=== PATIENT | male | born 1945 | race Caucasian/White ===

== ENCOUNTER → 2017-11-28 09:55 | Outpatient (CLI) | payer MEDICARE, OTHER, SELFPAY ==
--- NOTE | 2017-11-28 09:58 | FL_ITS ---
FL upper GI series w/o air HISTORY: ITS.REASON: DYSPHAGIA ORDERING PHYSICIAN: Eric Pike MD PATIENT AGE: 72 years Comparison: None FINDINGS: Tertiary contractions are present involving the esophagus poor emptying of the esophagus. No obvious mass or erosive change evident. The stomach and duodenum have an unremarkable appearance. No mass or ulceration FLUOROSCOPY TIME : 3 minutes and 12 seconds. IMPRESSION: Esophageal dysmotility otherwise negative upper GI
== END ==
PROVIDERS: Family Provider Family Medicine; PCP Family Medicine; Visit Provider Family Medicine
DX: R13.10 Dysphagia, unspecified (principal)
CPT/HCPCS: 74241

== ENCOUNTER → 2018-07-08 11:59 | Outpatient (CLI) | payer MEDICARE, OTHER, SELFPAY ==
--- NOTE | 2018-07-08 12:15 | XR_ITS ---
EXAM: XR cervical spine 5V HISTORY: ITS.REASON: NECK DISORDER ORDERING PHYSICIAN: Eric Pike MD PATIENT AGE: 73 years COMPARISON: None FINDINGS: Normal alignment. There is mild osteoarthritic change involving the C1 and C2 lateral mass the left. There is degenerative disc disease at C6-C7 with mild foraminal narrowing on the right at C6-C7 and on the left at C3-C4. Minimal foraminal narrowing noted at C6-C7 on the left. No fracture or dislocation. No lytic or blastic change. IMPRESSION: Degenerative disc disease with mild bilateral foraminal narrowing at C6-C7
== END ==
PROVIDERS: PCP Family Medicine; Visit Provider Family Medicine
DX: M53.82 Other specified dorsopathies, cervical region (principal)
CPT/HCPCS: 72050

== ENCOUNTER 2020-10-07 18:32 | Inpatient (IN) | payer MEDICARE, SELFPAY ==
[2020-10-07] VITALS (14 sets, daily range): BP systolic 96–178; BP diastolic 50–77; PULSE 67–113; RESP 18–32; TEMP 36.8; O2SAT 90–95; BMI 36.6
--- NOTE | 2020-10-07 18:33 | ECG_ITS ---
APPROVED REPORT Exam: Resting ECG HR:110 bpm ECG Measurements Heart Rate 110 AXES VA 176 P 25 QRSd 154 QRS -87 QT 356 T 55 QTc 481 Conclusion Sinus tachycardia Right bundle branch block Left anterior fascicular block Bifascicular block Possible Lateral infarct, age undetermined Abnormal ECG Electronically signed by : Collins Muñoz, 10/09/2020 20:30:06
[2020-10-07 18:47] LABS: POC Glucose,Bedside 144 (70-110)
--- NOTE | 2020-10-07 18:48 | PC.NURSE ---
pt belongings including gonzalez counted by me, $285, Feliciano Quiles and Jami Gutierrez handed the belongings to pt .
--- NOTE | 2020-10-07 18:50 | CT_ITS ---
PROCEDURE INFORMATION: Exam: CT Head Without Contrast Exam date and time: 10/07/2020 6:50 PM Age: 75 years old Clinical indication: Altered mental status/memory loss; Additional info: AMS TECHNIQUE: Imaging protocol: Computed tomography of the head without contrast. Radiation optimization: All CT scans at this facility use at least one of these dose optimization techniques: automated exposure control; mA and/or kV adjustment per patient size (includes targeted exams where dose is matched to clinical indication); or iterative reconstruction. COMPARISON: [facility] CT HEAD W/O CONTRAST 08/13/2014 7:10 PM FINDINGS: Limitations: Examination limited by beam hardening artifact from the calvarium and skull base, which particularly affects limitation of the posterior fossa structures. Brain: No acute hemorrhage. Moderate enlargement of the ventricular system secondary to age related parenchymal volume loss. Moderate enlargement of the cortical sulci, compatible with age-related parenchymal volume loss. Minimal basal ganglia mineralization. Cerebral ventricles: Moderate to severe enlargement of the ventricular system secondary to age related parenchymal volume loss. Vasculature: Atherosclerotic calcification of the bilateral intracranial internal carotid arteries. Bones/joints: Unremarkable. No acute fracture. Paranasal sinuses: Visualized sinuses are unremarkable. No fluid levels. Mastoid air cells: Visualized mastoid air cells are well aerated. Soft tissues: Unremarkable. IMPRESSION: 1. No acute intracranial abnormality. 2. Chronic findings.
--- NOTE | 2020-10-07 18:54 | HMH.EDGENADL ---
ED Disposition Condition on Discharge: Fair - Critical Care Critical Care Time: No <Farhan Johnson - Last Filed: 10/07/20 20:50> Condition on Discharge: Fair - Critical Care Critical Care Time: No <OscarkathleenVivek - Last Filed: 10/07/20 22:22> Clinical Impression: Weakness Vomiting Qualifiers: Vomiting type: unspecified Vomiting Intractability: non-intractable Nausea presence: with nausea Qualified Code(s): R11.2 - Nausea with vomiting, unspecified Disposition: Admitted As Inpatient Referrals: Eric Bell [Referring] - Attestation: On 10/07/20, the high probability of a clinically significant, sudden or life threatening deterioration of the following system(s) required my full and direct attention, intervention and personal management. The time I documented below is in addition to time spent performing reported procedures but includes the following listed in this critical care notation. Medical Decision Making - Jefry Inquiry Pt receiving controlled substance: No - Lab Data Result diagrams: 10/07/20 18:49 10/07/20 18:49 - Radiology Data #1 Image(s): Chest Image Reviewed: Yes I reviewed the patient's radiology image - Physician Consults Physician Consulted: Celio Time: 18:45 Reason -: Cardiology Eval/Care Comment/Response: EMS raised concern about ST elevation on EKG obtained in ambulance. That was transmitted to Dr. Pickens prior to his arrival. He did not STEMI was likely, but requested emergency department EKG transmission when he arrived. ED EKG transmitted and he does not feel this is a STEMI. Likely metabolic and/or cardiomyopathy. Additional Consult: Susi Time: 20:12 Reason -: Pt condition Comment/Response: Discussed case up to this point. Urine analysis, CT head, chest x-ray still pending. He is to be called back when work-up is complete. Anticipating admission. <NickFarhan ames - Last Filed: 10/07/20 20:50> - Lab Data Result diagrams: 10/07/20 18:49 10/07/20 18:49 <AbelVivek - Last Filed: 10/07/20 22:22> Vital Signs: 10/07/20 18:33 10/07/20 20:52 10/07/20 21:23 Temperature 98.2 F Temperature Source Oral Pulse Rate 104 H 104 H Pulse Rate [Right] 113 H Respiratory Rate 20 18 Blood Pressure 130/51 L 110/72 Blood Pressure [Right Arm] 178/70 H Blood Pressure Mean [Right Arm] 106 Blood Pressure Source Manual Cuff/ Auscultation Manual Cuff/ Auscultation Blood Pressure Source [Right Arm] Automatic Cuff Blood Pressure Position Supine Sitting Blood Pressure Position [Right Arm] Sitting 02 Sat by Pulse Oximetry 90 L 93 L 93 L Oxygen Delivery Method Room Air Nasal Cannula Nasal Cannula Oxygen Flow Rate (LPM) 2 2 - Lab Data Lab Results 10/07/20 18:40: POC Glucose 144 H 10/07/20 18:49: WBC 15.5 H, RBC 4.27 L, Hgb 11.6 L, Hct 36.0 L, MCV 84.5, MCH 27.2, MCHC 32.3, RDW 14.9, Plt Count 289, MPV 7.3 L, Neut % (Auto) 93.0 H, Lymph % (Auto) 3.8 L, [place] % (Auto) 2.0, Eos % (Auto) 1.0, Baso % (Auto) 0.2, Neut # (Auto) 14.5 H, Lymph # (Auto) 0.6 L, [place] # (Auto) 0.3, Eos # (Auto) 0.2, Baso # (Auto) 0.0, Total Counted 100, Neutrophils % (Manual) 97 H, Lymphocytes % (Manual) 2 L, Monocytes % (Manual) 1 L, Platelet Estimate Normal, RBC Morphology Normal 10/07/20 18:49: Sodium 140, Potassium 4.8, Chloride 102, Carbon Dioxide 27, Anion Gap 15.8 H, BUN 45 H, Creatinine 2.40 H, Estimated Creat Clear 47, Estimated GFR 27 L, Est GFR ( Amer) 32 L, Glucose 144 H, Calcium 9.6, Total Bilirubin 0.8, AST 39, ALT 31, Alkaline Phosphatase 149 H, Troponin I < 0.01, Total Protein 7.6, Albumin 4.3, Globulin 3.3 H, Albumin/Globulin Ratio 1.3 10/07/20 18:49: Plasma/Serum Alcohol < 10 10/07/20 18:52: Chlamy pneumoniae PCR Not detected, Adenovirus (PCR) Not detected, B. pertussis DNA (PCR) Not detected, Coronavirus OC43 (PCR) Not detected, Coronavirus HKU1 (PCR) Not detected, Coronavirus 229E (PCR) Not detected, SARS-CoV-2 (PCR) Not detected, Coronavirus NL63 (PCR) Not
[2020-10-07 19:02] LABS: Basophils % 0.2 % (0.1-2.0); Eosinophils # 0.2 K/mm3 (0.0-0.4); Hemoglobin 11.6 g/dL (14.1-18.0); Lymphocytes # 0.6 K/mm3 (0.7-4.5); Lymphocytes % 3.8 % (10-50); Mean Corpuscular HGB Conc 32.3 g/dL (31.8-35.4); Mean Corpuscular Hemoglobin 27.2 pg (27.0-31.2); Mean Corpuscular Volume 84.5 fl (80-94); Mean Platelet Volume 7.3 fl (7.4-10.4); Monocytes # 0.3 K/mm3 (0.1-1.0); Neutrophils # 14.5 K/mm3 (1.8-7.8); Platelet Count 289 K/mm3 (142-424); Red Blood Count 4.27 M/mm3 (4.60-6.20); Red Cell Distribution Width 14.9 % (11.5-17.5); White Blood Count 15.5 K/mm3 (4.8-10.8)
[2020-10-07 19:05] LABS: MANUAL DIFFERENTIAL MANUAL DIFFERENTIAL (MANUAL DIFF)
[2020-10-07 19:06] LABS: Chloride 102 mmol/L (98-107); Potassium 4.8 mmoL/L (3.5-5.1); Sodium 140 mmol/L (136-145)
[2020-10-07 19:09] LABS: Alanine Aminotransferase 31 U/L (12-78); Albumin Level 4.3 g/dl (3.5-5.0); Albumin/Globulin Ratio 1.3 (1.1-1.8); Alkaline Phosphatase 149 U/L (38-126); Anion Gap 15.8 mEq/L (5-15); Aspartate Amino Transferase 39 U/L (17-59); Bilirubin,Total 0.8 mg/dl (0.2-1.3); Blood Urea Nitrogen 45 mg/dl (9-20); Carbon Dioxide 27 mmol/L (22.0-30.0); Creatinine Clearance Estimated 47 mL/min (50-200); Estimated Glomerular Filt Rate 27 ml/min (>60); GFR (African American) 32 ML/MIN (>60); Globulin 3.3 g/dL (1.3-3.2); Total Protein,Serum 7.6 g/dl (6.3-8.2)
[2020-10-07 19:10] LABS: Calcium 9.6 mg/dl (8.4-10.2); Glucose 144 mg/dl (74-100)
[2020-10-07 19:21] LABS: Troponin I < 0.01 ng/ml (0.00-0.034)
[2020-10-07 19:43] LABS: Lymphocytes % 2 % (10-50); Monocytes % 1 % (2-9); Neutrophils % 97 % (42-76); Platelet Estimate Normal; RBC Morphology Normal; Total Cells Counted 100
[2020-10-07 19:45] LABS: Adenovirus,PCR Not Detected (NotDetected); Bordetella Pertussis Not Detected (NotDetected); Chlamydophila Pneumoniae, PCR Not Detected (NotDetected); Coronavirus 19, PCR Not Detected (NotDetected); Coronavirus 229E Not Detected (NotDetected); Coronavirus NL63 Not Detected (NotDetected); Coronavirus OC43 Not Detected (NotDetected); Coronovirus HKU1,PCR Not Detected (NotDetected); Human Metapneumovirus Not Detected (NotDetected); Influenza A, PCR Not Detected (NotDetected); Influenza AH1, 2009 Not Detected (NotDetected); Influenza AH1, PCR Not Detected (NotDetected); Influenza AH3,PCR Not Detected (NotDetected); Influenza B, PCR Not Detected (NotDetected); Mycoplasma Pneumoniae, PCR Not Detected (NotDetected); Parainfluenza 1, PCR Not Detected (NotDetected); Parainfluenza 2, PCR Not Detected (NotDetected); Parainfluenza 3, PCR Not Detected (NotDetected); Parainfluenza 4, PCR Not Detected (NotDetected); Respiratory Syncytial Virus Not Detected (NotDetected); Rhinovirus/Enterovirus Not Detected (NotDetected)
--- NOTE | 2020-10-07 19:51 | XR_ITS ---
PROCEDURE INFORMATION: Exam: XR Chest Exam date and time: 10/07/2020 7:51 PM Age: 75 years old Clinical indication: Other: AMS TECHNIQUE: Imaging protocol: XR of the chest. Views: 1 view. COMPARISON: CR CXR CHEST(2 VIEWS-NOT PORTABLE) 06/04/2016 10:15 AM FINDINGS: Low lung volumes. Probable cardiomegaly with left ventricular enlargement. Prominence of the interstitial structures, possibly related to low lung volume versus pneumonitis. No definite consolidation is identified. No acute fracture. Degenerative change. IMPRESSION: 1. No acute cardiopulmonary process. No focal airspace disease. 2. Prominence of the interstitial structures, possibly related to low lung volume versus pneumonitis.
--- NOTE | 2020-10-07 20:09 | PC.NURSE ---
Pt stripped and personal items placed in bags and given to to take to the car. Pt being bathed and placed in a gown.
--- NOTE | 2020-10-07 20:10 | PC.NURSE ---
Dr. Roman on phone with Dr. Goldman
[2020-10-07 21:01] LABS: Ethyl Alcohol < 10 mg/dl (0-10)
--- NOTE | 2020-10-07 21:05 | PC.NURSE ---
Dr. Roman on phone with Dr. Goldman again, pt to be admitted
[2020-10-07 21:40] LABS: Appearance,Urine CLEAR (Clear); Bilirubin,Urine Negative (Negative); Blood, Urine Negative (Negative); Color,Urine YELLOW (Yellow); Glucose,Urine (UA) TRACE (Negative); Ketones,Urine TRACE (Negative); Leukocyte Esterase,Urine Negative (Negative); Microscopic, Urine URINE MICROSCOPIC (MICROSCOPIC); Nitrate,Urine Negative (Negative); PH,Urine 5.5 (5.0-8.5); Protein,Urine 2+ (Negative); Specific Gravity, Urine >= 1.030 (1.005-1.030)
[2020-10-07 21:50] LABS: Amorphous Sediment,Urine Trace /lpf; Bacteria,Urine 1+ /lpf; Squamous Epithelial Cell,Urine Occasional #/hpf (0-5)
[2020-10-07 21:51] LABS: Barbiturates Screen,Urine Negative ng/ml (<200)
[2020-10-07 21:52] LABS: Amphetamine/Metha Screen,Urine Negative ng/ml (<1000); Benzodiazepines Screen,Urine Negative ng/ml (<200)
[2020-10-07 21:53] LABS: Cannabinoid Screen,Urine Negative ng/ml (<50)
[2020-10-07 21:54] LABS: Cocaine Screen,Urine Negative ng/ml (<300); Methadone Screen,Urine Negative ng/ml (<300)
[2020-10-07 21:55] LABS: Opiate Screen,Urine Negative ng/ml (<300)
[2020-10-07 21:56] LABS: Phencyclidine Screen,Urine Negative ng/ml (<25)
[2020-10-07 22:24] LABS: Troponin I 0.02 ng/ml (0.00-0.034)
[2020-10-08] VITALS (12 sets, daily range): BP systolic 95–139; BP diastolic 43–80; PULSE 73–94; RESP 15–29; TEMP 36.7–37.8; O2SAT 91–98; BMI 37.0
--- NOTE | 2020-10-08 01:07 | PC.NURSE ---
attempted to call report Charo PEREZ unable to at this time
[2020-10-08 01:28] LABS: Troponin I 0.02 ng/ml (0.00-0.034)
--- NOTE | 2020-10-08 01:37 | PC.NURSE ---
PT ARRIVED TO FLOOR VIA STRETCHER ED W/STAFF AT [id number]
[2020-10-08 06:02] LABS: POC Glucose,Bedside 141 (70-110)
[2020-10-08 07:14] LABS: NT Pro Brain Natriuretic Pep. 2470 pg/mL (0-125)
[2020-10-08 07:47] LABS: Basophils % 0.2 % (0.1-2.0); Hematocrit 32.4 % (42.0-52.0); Lymphocytes # 0.7 K/mm3 (0.7-4.5); Lymphocytes % 3.7 % (10-50); Mean Corpuscular HGB Conc 31.5 g/dL (31.8-35.4); Mean Corpuscular Hemoglobin 27.4 pg (27.0-31.2); Mean Corpuscular Volume 86.8 fl (80-94); Mean Platelet Volume 8.1 fl (7.4-10.4); Monocytes # 0.8 K/mm3 (0.1-1.0); Neutrophils # 17.5 K/mm3 (1.8-7.8); Platelet Count 258 K/mm3 (142-424); Red Blood Count 3.73 M/mm3 (4.60-6.20); Red Cell Distribution Width 14.7 % (11.5-17.5)
[2020-10-08 07:52] LABS: MANUAL DIFFERENTIAL MANUAL DIFFERENTIAL (MANUAL DIFF)
[2020-10-08 07:57] LABS: Anion Gap 11.3 mEq/L (5-15); Blood Urea Nitrogen 53 mg/dl (9-20); Carbon Dioxide 27 mmol/L (22.0-30.0); Chloride 103 mmol/L (98-107); Creatinine Clearance Estimated 37 mL/min (50-200); Estimated Glomerular Filt Rate 20 ml/min (>60); GFR (African American) 24 ML/MIN (>60); Glucose 146 mg/dl (74-100); Potassium 5.3 mmoL/L (3.5-5.1); Sodium 136 mmol/L (136-145)
[2020-10-08 08:07] LABS: Calcium 8.4 mg/dl (8.4-10.2)
[2020-10-08 09:09] LABS: Hypochromasia 1+; Lymphocytes % 3 % (10-50); Monocytes % 7 % (2-9); Neutrophils % 88 % (42-76); Platelet Estimate Normal; Total Cells Counted 100
[2020-10-08 09:50] LABS: Hemoglobin 10.2 g/dL (14.1-18.0)
[2020-10-08 11:47] LABS: POC Glucose,Bedside 314 (70-110)
--- NOTE | 2020-10-08 12:18 | HMH.HP ---
*Admission Date: 10/07/20 *Chief complaint: SOA, confusion, weakness *History of present illness: Mr. 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 History obtained from patient, though he is a poor historian, as well as from ER documentation. He reportedly was brought in by ambulance with report of altered mental status. 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 However, his stated in the ER that he always shakes and in fact is on medication for his shaking, she does not remember what the medicine is (propranolol per home med list). On arrival he was having nausea and vomiting. Denied any pain or preceding illnesses that he is aware of. He denied chest pain or shortness of breath, headache, abdominal pain, and fever. His thought he might of just gotten overheated. However, on assessment today he appears SOA. is on O2 (denies wearing at home). Continues to feel fatigued. Had an elevated temperature this morning to 100 degrees but no allan fever over 100.4. Temperature is resolved. Labs worse this morning his kidney function has progressed to creatinine greater than 3 even after fluid resuscitation. BNP obtained this morning showing significant elevation over 1999. Patient denies any specific cardiac history however review of medications shows multiple meds for hypertension and volume overload. Patient has tolerated breakfast and lunch without difficulty. Hernandez catheter still in place with moderate urine output. Denies any nausea or diarrhea. No family at bedside. [facility] History I have reviewed the patient's past medical history: Yes (Difficult to obtain from patient however) Medical History: Reports:: Diabetes Mellitus Type 2, Hypertension Denies:: Cancer, Diabetes Mellitus Type 1, Internal Pacemaker, MRSA *Have you ever received a pneumonia vaccine?: Yes *Have you received a flu vaccine this season?: Yes Other Medical History: Reports: Arthritis Other Surgeries: No: Pacemaker Amputation: No - *Social History Last grade of school completed: 7th or 8th Smoking Status: Never smoker Alcohol Intake: never *Occupational Status:: retired Housing: house Household Members: spouse *Travel in the last 8 weeks: None Family Hx:: No significant family history Review of Systems - Review of Systems Review of systems:: pertinent systems reviewed and negative unless documented below (14 point review of systems performed, pertinent positives and negatives as per HPI) - *Neurologic Reports tremor(s) (chronic), Denies headache(s), Denies numbness, Denies weakness Meds Home Medications Medication Instructions Recorded Confirmed Type Amlodipine Besylate [Norvasc 5mg 5 mg PO DAILY 10/07/20 10/07/20 History tablet] Ergocalciferol (Vitamin D2) 1 tab PO WEEKLY 10/07/20 10/07/20 History [Drisdol 50,000 units (1.25mg) capsule] Furosemide [Furosemide 40MG tAB*] 40 mg PO DAILY PRN 10/07/20 10/07/20 History Insulin Aspart [Novolog Flexpen] 10 units SQ TID 10/07/20 10/07/20 History Insulin NPH Hum/Reg Insulin Hm 50 unit SQ HS 10/07/20 10/07/20 History [Novolin 70-30 Flexpen] Insulin NPH Hum/Reg Insulin Hm 60 unit SQ AC 10/07/20 10/07/20 History [Novolin 70-30 Flexpen] Omeprazole [Omeprazole 20mg 20 mg PO DAILY 10/07/20 10/07/20 History Capsule] Propranolol HCl 60 mg PO DAILY 10/07/20 10/07/20 History allopurinoL [Allopurinol 100mg 100 mg PO DAILY 10/07/20 10/07/20 History tablet] glipiZIDE [Glipizide] 10 mg PO DAILY 10/07/20 10/07/20 History lisinopriL [Lisinopril] 20 mg PO DAILY 10/07/20 10/07/20 History Allergies Allergy/AdvReac Type Severity Reaction Status Date / Time iodine [IODINE] Allergy Mild Verified 10/07/20 20:58 latex [LATEX] Allergy Unknown Verified 10/07/20 20:58 Exam Vital signs and Labs for Last 24 Hours: Temp Pulse Resp BP Pulse Ox 98.8 F 8
--- NOTE | 2020-10-08 13:22 | PC.NURSE ---
had paged for echo
[2020-10-08 14:21] LABS: Hemoglobin A1C 10.5 % (4.0-6.0)
--- NOTE | 2020-10-08 14:44 | P.CONPHA_ITS ---
[facility] Pharmacy VTE Monitoring - Patient Demographics Admission date: 10/08/20 Report Date: 10/08/20 Time: 14:44 Allergies/Adverse Reactions: Patient Allergies iodine [IODINE] Allergy (Mild, Verified 10/07/20 20:58) latex [LATEX] Allergy (Unknown, Verified 10/07/20 20:58) Height: 1.83 m Weight: 123.944 kg Patient Problems: Current Active Problems Weakness (Acute) Acute CHF (congestive heart failure) (Acute) Urinary tract infection (Acute) Acute hypoxemic respiratory failure (Acute) Insulin dependent diabetes mellitus (Chronic) Essential hypertension (Chronic) Gout (Chronic) Acute kidney injury (Acute) Class II obesity (Chronic) Anemia (Chronic) - VTE Risk Labs: VTE Related Lab Results Hgb 10.2 g/dL (14.1-18.0) L D 10/08/20 06:13 Hct 32.4 % (42.0-52.0) L 10/08/20 06:13 Plt Count 258 K/mm3 (142-424) 10/08/20 06:13 BUN 53 mg/dl (9-20) H 10/08/20 06:13 Creatinine 3.10 mg/dl (0.66-1.25) H D 10/08/20 06:13 Estimated Creat Clear 37 mL/min (50-200) 10/08/20 06:13 - Prophylaxis Types of VTE Prophylaxis: TEDS Knee High (RAMEZ HOSE ORDERED)
[2020-10-08 14:45] LABS: Thyroid Stimulating Hormone 1.72 uIU/mL (0.465-4.68)
[2020-10-08 16:25] LABS: POC Glucose,Bedside 299 (70-110)
--- NOTE | 2020-10-08 17:40 | PC.NURSE ---
Pt has slept majority of this shift. Pt has diuresed 1300+ mL of light yellow, cloudy urine this shift per cm cath. Pt is a total x2 assist to even sit on the side of the bed. Pt has been confused at times during the day , but is easily redirected. Pt continues on 2L NC w/ o2 sats >92%. Expiratory wheezes continue bilaterally t/o all lung joyce. +2 pitting edema @ BLE. Pt's BLE are reddened as well. No other acute changes or complaints at this time. Will continue to monitor.
[2020-10-08 18:08] LABS: Chloride 97 mmol/L (98-107)
[2020-10-08 18:09] LABS: Potassium 4.9 mmoL/L (3.5-5.1); Sodium 132 mmol/L (136-145)
[2020-10-08 18:12] LABS: Anion Gap 11.9 mEq/L (5-15); Blood Urea Nitrogen 55 mg/dl (9-20); Calcium 8.5 mg/dl (8.4-10.2); Carbon Dioxide 28 mmol/L (22.0-30.0); Creatinine Clearance Estimated 38 mL/min (50-200); Estimated Glomerular Filt Rate 21 ml/min (>60); GFR (African American) 25 ML/MIN (>60); Glucose 250 mg/dl (74-100)
[2020-10-08 20:50] LABS: POC Glucose,Bedside 251 (70-110)
[2020-10-09] VITALS (10 sets, daily range): BP systolic 127–152; BP diastolic 58–74; PULSE 70–90; RESP 17–20; TEMP 36.4–37.3; O2SAT 90–96; BMI 37.0
[2020-10-09 05:42] LABS: POC Glucose,Bedside 154 (70-110)
[2020-10-09 08:18] LABS: Basophils % 0.2 % (0.1-2.0); Eosinophils % 0.2 % (0.1-12.0); Hematocrit 30.4 % (42.0-52.0); Hemoglobin 9.9 g/dL (14.1-18.0); Lymphocytes # 1.4 K/mm3 (0.7-4.5); Lymphocytes % 8.1 % (10-50); Mean Corpuscular HGB Conc 32.7 g/dL (31.8-35.4); Mean Corpuscular Hemoglobin 28.2 pg (27.0-31.2); Mean Corpuscular Volume 86.4 fl (80-94); Mean Platelet Volume 8.6 fl (7.4-10.4); Monocytes # 0.7 K/mm3 (0.1-1.0); Monocytes % 4.2 % (1.7-9.3); Neutrophils # 14.7 K/mm3 (1.8-7.8); Neutrophils % 87.4 % (37.0-80.0); Platelet Count 231 K/mm3 (142-424); Red Blood Count 3.52 M/mm3 (4.60-6.20); White Blood Count 16.8 K/mm3 (4.8-10.8)
[2020-10-09 08:21] LABS: MANUAL DIFFERENTIAL MANUAL DIFFERENTIAL (MANUAL DIFF)
[2020-10-09 08:34] LABS: Chloride 98 mmol/L (98-107); Potassium 4.6 mmoL/L (3.5-5.1); Sodium 133 mmol/L (136-145)
[2020-10-09 08:36] LABS: Alanine Aminotransferase 23 U/L (12-78); Aspartate Amino Transferase 38 U/L (17-59); Blood Urea Nitrogen 54 mg/dl (9-20); Creatinine Clearance Estimated 44 mL/min (50-200); Estimated Glomerular Filt Rate 24 ml/min (>60); GFR (African American) 29 ML/MIN (>60)
[2020-10-09 08:37] LABS: Albumin Level 3.3 g/dl (3.5-5.0); Albumin/Globulin Ratio 1.1 (1.1-1.8); Alkaline Phosphatase 111 U/L (38-126); Anion Gap 12.6 mEq/L (5-15); Bilirubin,Total 0.7 mg/dl (0.2-1.3); Calcium 8.7 mg/dl (8.4-10.2); Carbon Dioxide 27 mmol/L (22.0-30.0); Globulin 3.1 g/dL (1.3-3.2); Glucose 224 mg/dl (74-100); Magnesium 1.7 mg/dl (1.6-2.3); Total Protein,Serum 6.4 g/dl (6.3-8.2)
[2020-10-09 08:43] LABS: Lymphocytes % 8 % (10-50); Monocytes % 5 % (2-9); Neutrophils % 87 % (42-76); Platelet Estimate Normal; RBC Morphology Normal; Total Cells Counted 100
--- NOTE | 2020-10-09 09:46 | HMH.ACPN2 ---
Internal Medicine - PN: Subj *Date: 10/09/20 *Time: 10:21 Interval history: Mr. Eng is remained hemodynamically stable overnight. Tolerating good p.o. intake. Unfortunately continues to require oxygen even with good diuresis and negative volume status. No allan fever overnight but had temperature up to 100 again. Still on azithromycin and ceftriaxone. At this time I have low concern for pneumonia. Has had worsening redness and warmth in his left lower extremity. Denies nausea, vomiting, confusion, chills. No diarrhea. Complained of some chest discomfort this morning. Asking about going home and states he can get up and walk however when asked to get up out of bed he has excuses and does not even sit up to the bedside. He is a 2 person assist per nursing reports. Exam Vital signs and Labs for Last 24 Hours: Temp Pulse Resp BP Pulse Ox 98.7 F 79 19 133/70 94 L 10/09/20 07:50 10/09/20 07:50 10/09/20 07:50 10/09/20 07:50 10/09/20 07:50 Laboratory Results - last 24 hr 10/08/20 06:13: Hgb 10.2 L D 10/08/20 06:15: Hemoglobin A1c 10.5 H 10/08/20 06:15: TSH 1.72 10/08/20 11:29: POC Glucose 314 H* 10/08/20 16:13: POC Glucose 299 H 10/08/20 17:43: Sodium 132 L, Potassium 4.9, Chloride 97 L, Carbon Dioxide 28, Anion Gap 11.9, BUN 55 H, Creatinine 3.00 H, Estimated Creat Clear 38, Estimated GFR 21 L, Est GFR ( Amer) 25 L, Glucose 250 H D, Calcium 8.5 10/08/20 20:38: POC Glucose 251 H 10/09/20 05:32: POC Glucose 154 H 10/09/20 08:00: WBC 16.8 H, RBC 3.52 L, Hgb 9.9 L, Hct 30.4 L, MCV 86.4, MCH 28.2, MCHC 32.7, RDW 15.0, Plt Count 231, MPV 8.6, Neut % (Auto) 87.4 H, Lymph % (Auto) 8.1 L, [place] % (Auto) 4.2, Eos % (Auto) 0.2, Baso % (Auto) 0.2, Neut # (Auto) 14.7 H, Lymph # (Auto) 1.4, [place] # (Auto) 0.7, Eos # (Auto) 0.0, Baso # (Auto) 0.0, Total Counted 100, Neutrophils % (Manual) 87 H, Lymphocytes % (Manual) 8 L, Monocytes % (Manual) 5, Platelet Estimate Normal, RBC Morphology Normal 10/09/20 08:00: Sodium 133 L, Potassium 4.6, Chloride 98, Carbon Dioxide 27, Anion Gap 12.6, BUN 54 H, Creatinine 2.60 H, Estimated Creat Clear 44, Estimated GFR 24 L, Est GFR ( Amer) 29 L, Glucose 224 H, Calcium 8.7, Magnesium 1.7, Total Bilirubin 0.7, AST 38, ALT 23 D, Alkaline Phosphatase 111, Total Protein 6.4, Albumin 3.3 L, Globulin 3.1, Albumin/Globulin Ratio 1.1 I & O for Last 24 hours: Intake & Output 10/06/20 10/07/20 10/08/20 10/09/20 23:59 23:59 23:59 23:59 Intake Total 1240 / 1240 240 / 240 Output Total 1900 / 2800 1500 / 1500 Balance -660 / -1560 -1260 / -1260 Weight 122.47 kg 123.944 kg 123.944 kg Microbiology Reports for the Last 24 Hours: Microbiology 10/08/20 07:43 Urine,Clean Catch Urine Culture - Preliminary NO GROWTH AFTER 24 HOURS 10/07/20 19:09 Blood Blood Culture - Preliminary Gram Positive Cocci 10/07/20 19:09 Blood Blood Culture - Preliminary - Constitutional mild distress, obese, chronically ill appearing, disheveled, cooperative - *Routine HEENT Exam Head: Present: normocephalic Eye: Present: EOMI, PERRL ENT: Present: mucous membranes moist - *Routine Neck Exam Present: supple. Absent: lymphadenopathy - *Routine Respiratory Exam Present: diminished air movement. Absent: wheezes, crackles (Crackles resolved today) - *Routine Cardiovascular Exam Present: RRR. Absent: murmur - *Routine Abdominal Exam Present: soft, normoactive bowel sounds. Absent: tenderness - *Routine Extremities Exam Present: edema, calf tenderness (Left lower extremity more erythematous than yesterday. Right improved. Left calf tender. Left lower extremity warm with slight worsening edema.). Absent: cyanosis, clubbing Comments: Left pinky toenail long and hook shaped curling into the bottom of his foot causing small wound on the plantar surface under his fourth toe. Clipped nail on exam today. - *Routine Skin Exam Pres
--- NOTE | 2020-10-09 10:13 | CA_ITS ---
APPROVED REPORT Bilateral Lower Extremity Venous Study for Cardiac Nurse Practitioner: CN Indications increased warmth, pain, swelling, reddness Risk Factors Obesity Vein Imaging CFV (L): compressive, spontaneous, phasic, augmentation FEM (L): compressive, spontaneous, phasic, augmentation POP (L): compressive, spontaneous, phasic, augmentation DFV (L): compressive, spontaneous, phasic, augmentation PTV (L): compressive, spontaneous, phasic, augmentation GSV (L): compressive, spontaneous, phasic, augmentation Peroneals (L):compressive, spontaneous, phasic, augmentation GAS (L): compressive, spontaneous, phasic, augmentation Findings Color flow duplex demonstrates no evidence of DVT of the following left lower extremity Veins:Femoral Vein, Common Femoral Vein, Popliteal Vein, Peroneal Veins, Deep Femoral Vein. Conclusion no evidence of DVT. Subcutaneous soft tissue edema. Electronically signed by : Sunitha Kelly, 10/12/2020 16:54:11
[2020-10-09 10:15] LABS: Troponin I 0.03 ng/ml (0.00-0.034)
--- NOTE | 2020-10-09 10:33 | ECG_ITS ---
APPROVED REPORT Exam: Resting ECG HR:77 bpm ECG Measurements Heart Rate 77 AXES NV 178 P 21 QRSd 168 QRS -72 QT 410 T 81 QTc 463 Conclusion Sinus rhythm with premature atrial complexes Right bundle branch block Left anterior fascicular block Bifascicular block Possible Lateral infarct, age undetermined Abnormal ECG Electronically signed by : Collins Muñoz, 10/09/2020 20:25:50
[2020-10-09 11:59] LABS: POC Glucose,Bedside 246 (70-110)
--- NOTE | 2020-10-09 16:07 | PC.NURSE ---
Pt has been up to chair majority of this shift. LLE remains elevated w/ a pillow. Pt is no longer complaining of pain in that extremity since being in the recliner. Audible wheezing still heard when you enter pt's room and expiratory wheezing hear t/o all lung bases per auscultation. PIV access lost this shift, new PIV placed in pt's rt wrist and remains patent. Pt has been using the urinal frequently this shift. No other acute changes or complaints at this time.
[2020-10-09 17:25] LABS: POC Glucose,Bedside 260 (70-110)
--- NOTE | 2020-10-09 20:10 | PC.NURSE ---
assisted pt back to bed from chair.changed his gown,it was wet where he used his urinal and may have spilled some on him.
[2020-10-09 20:43] LABS: POC Glucose,Bedside 251 (70-110)
[2020-10-10] VITALS (7 sets, daily range): BP systolic 126–165; BP diastolic 65–78; PULSE 60–80; RESP 18–20; TEMP 36.4–37.1; O2SAT 90–98; BMI 36.3; BMI 36.4
[2020-10-10 07:02] LABS: POC Glucose,Bedside 199 (70-110)
[2020-10-10 07:23] LABS: Alanine Aminotransferase 25 U/L (12-78); Albumin Level 3.9 g/dl (3.5-5.0); Albumin/Globulin Ratio 1.1 (1.1-1.8); Alkaline Phosphatase 142 U/L (38-126); Anion Gap 10.3 mEq/L (5-15); Aspartate Amino Transferase 33 U/L (17-59); Bilirubin,Total 0.6 mg/dl (0.2-1.3); Blood Urea Nitrogen 52 mg/dl (9-20); Carbon Dioxide 31 mmol/L (22.0-30.0); Chloride 100 mmol/L (98-107); Creatinine Clearance Estimated 54 mL/min (50-200); Estimated Glomerular Filt Rate 31 ml/min (>60); GFR (African American) 38 ML/MIN (>60); Globulin 3.7 g/dL (1.3-3.2); Glucose 189 mg/dl (74-100); Magnesium 1.9 mg/dl (1.6-2.3); Potassium 4.3 mmoL/L (3.5-5.1); Sodium 137 mmol/L (136-145); Total Protein,Serum 7.6 g/dl (6.3-8.2)
[2020-10-10 07:28] LABS: Calcium 9.6 mg/dl (8.4-10.2)
--- NOTE | 2020-10-10 07:40 | XR_ITS ---
PROCEDURE: XR CHEST 2V CLINICAL HISTORY: Follow-up CHF, questionable pneumonia COMPARISON: CR CXR CHEST(2 VIEWS-NOT PORTABLE) from 06/03/2016 CR CXR CHEST(2 VIEWS-NOT PORTABLE) from 06/04/2016 CR XR CHEST PORTABLE from 10/07/2020 FINDINGS: The cardiomediastinal silhouette and pulmonary vascularity are within normal limits. Atelectasis is noted in the left mid zone. Small left effusion is noted. No lobar consolidation, or pneumothorax. Minor multilevel degenerative changes of the thoracic spine noted. IMPRESSION: Atelectasis in the left mid zone. Small left effusion. Improvement compared to the prior study. Dictated by: Sunitha Kelly 10/10/2020 12:46 Sunitha Kelly in OV 10/10/2020 12:46
--- NOTE | 2020-10-10 07:40 | HMH.ACPN2 ---
Internal Medicine - PN: Subj *Date: 10/10/20 *Time: 07:40 Interval history: Patient states that he feels better than yesterday, appetite is better. Notes that his left leg is less painful. Exam Vital signs and Labs for Last 24 Hours: Temp Pulse Resp BP Pulse Ox 98.4 F 77 20 165/78 H 96 10/10/20 04:00 10/10/20 04:00 10/10/20 04:00 10/10/20 04:00 10/10/20 04:00 Laboratory Results - last 24 hr 10/09/20 08:00: WBC 16.8 H, RBC 3.52 L, Hgb 9.9 L, Hct 30.4 L, MCV 86.4, MCH 28.2, MCHC 32.7, RDW 15.0, Plt Count 231, MPV 8.6, Neut % (Auto) 87.4 H, Lymph % (Auto) 8.1 L, Geary % (Auto) 4.2, Eos % (Auto) 0.2, Baso % (Auto) 0.2, Neut # (Auto) 14.7 H, Lymph # (Auto) 1.4, Geary # (Auto) 0.7, Eos # (Auto) 0.0, Baso # (Auto) 0.0, Total Counted 100, Neutrophils % (Manual) 87 H, Lymphocytes % (Manual) 8 L, Monocytes % (Manual) 5, Platelet Estimate Normal, RBC Morphology Normal 10/09/20 08:00: Sodium 133 L, Potassium 4.6, Chloride 98, Carbon Dioxide 27, Anion Gap 12.6, BUN 54 H, Creatinine 2.60 H, Estimated Creat Clear 44, Estimated GFR 24 L, Est GFR ( Amer) 29 L, Glucose 224 H, Calcium 8.7, Magnesium 1.7, Total Bilirubin 0.7, AST 38, ALT 23 D, Alkaline Phosphatase 111, Total Protein 6.4, Albumin 3.3 L, Globulin 3.1, Albumin/Globulin Ratio 1.1 10/09/20 08:05: Troponin I 0.03 10/09/20 10:59: POC Glucose 246 H 10/09/20 16:53: POC Glucose 260 H 10/09/20 20:02: POC Glucose 251 H 10/10/20 06:32: POC Glucose 199 H 10/10/20 06:51: Sodium 137, Potassium 4.3, Chloride 100, Carbon Dioxide 31 H, Anion Gap 10.3, BUN 52 H, Creatinine 2.10 H, Estimated Creat Clear 54, Estimated GFR 31 L, Est GFR ( Amer) 38 L D, Glucose 189 H, Calcium 9.6 D, Magnesium 1.9 D, Total Bilirubin 0.6, AST 33, ALT 25, Alkaline Phosphatase 142 H, Total Protein 7.6, Albumin 3.9 D, Globulin 3.7 H, Albumin/Globulin Ratio 1.1 I & O for Last 24 hours: Intake & Output 10/07/20 10/08/20 10/09/20 10/10/20 11:59 11:59 11:59 11:59 Intake Total 320 / 320 1160 / 1160 1200 / 1200 Output Total 200 / 200 4900 / 4900 2950 / 2950 Balance 120 / 120 -3740 / -3740 -1750 / -1750 Weight 273 lb 4 oz 273 lb 4 oz 268 lb 1 oz Microbiology Reports for the Last 24 Hours: Microbiology 10/07/20 19:09 Blood Blood Culture - Preliminary Strep dysgalactiae/canis 10/08/20 07:43 Urine,Clean Catch Urine Culture - Preliminary NO GROWTH AFTER 24 HOURS 10/07/20 19:09 Blood Blood Culture - Preliminary Narrative: Patient is pleasant, oriented, extremely hard of hearing. Lungs have good air movement except for bibasilar crackles. Heart rate regular without murmurs or gallops. Abdomen soft. Left leg still afflicted with significant erysipelas appearing cellulitis but no bubbling, no subcutaneous crackling on palpation. Edema is slightly improved vis-?-vis exam notes from yesterday. Other than his hearing patient is neurologically intact but is extremely weak and is two-person lift according to nursing staff. Assessment and Plan (1) Acute CHF (congestive heart failure) Status: Acute Category: Medical Code(s): I50.9 - Heart failure, unspecified (2) Urinary tract infection Status: Acute Category: Medical Code(s): N39.0 - Urinary tract infection, site not specified (3) Acute hypoxemic respiratory failure Status: Acute Category: Medical Code(s): J96.01 - Acute respiratory failure with hypoxia (4) Acute kidney injury Status: Acute Category: Medical Code(s): N17.9 - Acute kidney failure, unspecified (5) Insulin dependent diabetes mellitus Status: Chronic Category: Medical (6) Essential hypertension Status: Chronic Category: Medical Code(s): I10 - Essential (primary) hypertension (7) Gout Status: Chronic Category: Medical Code(s): M10.9 - Gout, unspecified (8) Vomiting Status: Resolved Qualifiers: Vomiting type: unspecified Vomiting Intractabil
[2020-10-10 07:50] LABS: Basophils # 0.1 K/mm3 (0-0.2); Basophils % 0.5 % (0.1-2.0); Eosinophils # 0.2 K/mm3 (0.0-0.4); Eosinophils % 1.4 % (0.1-12.0); Hematocrit 36.4 % (42.0-52.0); Lymphocytes # 1.5 K/mm3 (0.7-4.5); Lymphocytes % 10.7 % (10-50); Mean Corpuscular HGB Conc 31.7 g/dL (31.8-35.4); Mean Corpuscular Hemoglobin 27.3 pg (27.0-31.2); Mean Corpuscular Volume 86.1 fl (80-94); Mean Platelet Volume 9.2 fl (7.4-10.4); Monocytes # 0.7 K/mm3 (0.1-1.0); Monocytes % 5.1 % (1.7-9.3); Neutrophils # 11.4 K/mm3 (1.8-7.8); Neutrophils % 82.2 % (37.0-80.0); Platelet Count 271 K/mm3 (142-424); Red Blood Count 4.23 M/mm3 (4.60-6.20); Red Cell Distribution Width 14.9 % (11.5-17.5); White Blood Count 13.9 K/mm3 (4.8-10.8)
[2020-10-10 08:01] LABS: Hemoglobin 11.5 g/dL (14.1-18.0)
--- NOTE | 2020-10-10 10:18 | CA_ITS ---
APPROVED REPORT EXAM: Comprehensive 2D, Doppler, and color-flow Echocardiogram Booster Operator: Rani Rodriges RT(R) Ht: 6 ft 0 in Wt: 268lbs BSA: 2.41 BP: 142/94 mmHg Indications: weakness, HTN, DM, SOB, CHF 2D Dimensions LVOT 2.28 cm (M/F) 1.5-2.5 LVEF (Hackett's) 42.90 % M: 52 - 72 LV Volume 173.50 mL M: 62 - 150 LV Volume Index 71.99 mL/m2 M: 34 - 74 LA Volume 44.90 mL LA Volume Index 18.63 mL/m2 (M/F) 16-34 M-Mode Dimensions RVDd 4.45 cm (0.9-2.6) LA Diam 4.86 cm (1.9-4.0) LVDd 5.47 cm (3.5-5.7) Ao Diam 3.32 cm (2.0-3.7) LVDs 4.28 cm (3.5-5.7) IVSd 1.19 cm (0.6-1.1) PWd 1.06 cm (0.6-1.1) EF (Teich) 43.50% FS 21.80% EDV (Teich) 145.60 mL TAPSE 2.21 (<1.7) ESV (Teich) 82.20 mL LV Diastology E Decel Time 200.00 (160-240 msec) E/A Ratio 1.6 MED E' 6.50 (< 7 cm/sec) E'/MED E' Ratio 17.32 (>14) LAT E' 8.10 (<10 cm/sec) E/LAT E' Ratio 13.90 (>14) Aortic Valve LVOT Max 79.00 (70-110 cm/s) LVOT VTI 16.57 cm AoV Peak Matthew. 141.00 (50-130 cm/s) AO Peak GR. 8.00 mmHg AO Mean GR. 3.90 (<5 mmHg) AO VTI 29.15 (18-25 cm) ELIZA (VTI) 2.32 (2.5-4.5 cm2) Mitral Valve MV E Max Matthew. 113.00 (40-130 cm/s) MV A Velocity 72.00 (40-130 cm/s) E/A Ratio 1.57 MV Decel. Time 200.00 (160-240 ms) MV PHT 59.00 ms Left Ventricle Left atrium is mildly enlarged, left ventricle is normal size, mild concentric left ventricular hypertrophy, visually estimated ejection fraction 50% with no regional wall motion abnormality, grade 2 diastolic dysfunction seen with tissue Doppler evidence of raise left atrial pressure. Right Ventricle Right atrium and right ventricle are mildly enlarged with normal contractility. Aortic Valve Aortic valve is minimally thickened and calcified without Doppler evidence of aortic stenosis or aortic insufficiency. Mitral Valve Mitral valve is grossly normal, there is mild mitral regurgitation. Tricuspid Valve Tricuspid valve grossly normal, there is mild tricuspid regurgitation, tricuspid regurgitation jet velocity is inadequate for calculation of the right ventricular systolic pressure. Pulmonic Valve Pulmonic valve is poorly visualized. Great Vessels Aortic root is normal size. Pericardium No significant pericardial effusion noted. Conclusion 1. Biatrial enlargement, normal left ventricular size, mild concentric left ventricular hypertrophy, visually estimated ejection fraction 50% with no regional wall motion abnormality, grade 2 diastolic dysfunction seen with tissue Doppler evidence of raise left atrial pressure. 2. Mildly enlarged right ventricle with normal contractility. 3. Thickened and calcified aortic valve without Doppler evidence of aortic stenosis or aortic insufficiency. 4. Mild mitral and tricuspid regurgitation. 5. No significant pericardial effusion noted. Electronically signed by : Camden Damon, 10/10/2020 17:53:31
--- NOTE | 2020-10-10 10:23 | HMH.PTEV ---
Physical Therapy Evaluation Rehab PT IP Evaluation Start: 10/09/20 09:46 Freq: ONCE Status: Active Protocol: Document 10/10/20 10:18 AZMITZY (Rec: 10/10/20 10:23 ELIAZAR [id number]) Subjective/History History History Mr. 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 History obtained from patient, though he is a poor historian, as well as from ER documentation. He reportedly was brought in by ambulance with report of altered mental status. 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 However, his stated in the ER that he always shakes and in fact is on medication for his shaking, she does not remember what the medicine is (propranolol per home med list). On arrival he was having nausea and vomiting. Subjective Subjective No complaints from pt - pt is severely [place] [facility] Rehab PT IP Eval Objective Appearance Patient Behavior Appropriate,Cooperative Patient Orientation Person,Place,Time Difficulty following instructions none Speech Pattern Clear,Appropriate Ambulation Patient Able to Ambulate Yes Ambulation Observation IP General Gait Pattern Observation Wide Based Gait,Shuffling Step Ambulation Distance (feet) 6 Ambulation Assistive Device None Ambulation Ability Contact Guard/Hand Hold Balance Ability to Arise Able, uses arms to help Sitting Balance Steady, safe Standing Balance Unsteady Dynamic Sitting Balance Ability Good Dynamic Standing Balance Ability Poor Transfers Chair Transfer Ability Contact Guard/Hand Hold Sit to Stand Chair Transfer Ability Contact Guard/Hand Hold ROM All Extremities PT ROM Status WFL MMT All Extremities PT MMT WFL Rehab PT IP prob,goals,plan Problems Date of Evaluation: 10/10/20 PT IP Problems Transfers,Gait,Balance,Self care,Safety Rehab Potential Rehab Potential Good Equipment N
--- NOTE | 2020-10-10 11:52 | PC.NURSE ---
PT IS RESTING IN BED. TOLERATED SITTING UP IN THE CHAIR FOR SEVERAL HOURS THIS MORNING. PT'S WEAKNESS HAS IMPROVED. STANDBY ASSIST GETTING FROM CHAIR TO BED. LUNG SOUNDS DIMINISHED WITH SCATTERED WHEEZES AND FAINT CRACKLES IN THE BILATERAL BASES. 3+ PITTING EDEMA WITH REDNESS NOTED TO LLE. VOIDING PER URINAL. ABDOMEN LARGE/FIRM/NON TENDER WITH HYPOACTIVE BOWEL SOUNDS. EATING AND DRINKING WELL. VSS. WILL CONTINUE TO MONITOR.
[2020-10-10 13:50] LABS: POC Glucose,Bedside 371 (70-110)
[2020-10-10 18:24] LABS: POC Glucose,Bedside 263 (70-110)
[2020-10-11] VITALS (7 sets, daily range): BP systolic 142–178; BP diastolic 72–88; PULSE 54–74; RESP 19–26; TEMP 36.3–37; O2SAT 95–98; BMI 36.6
[2020-10-11 01:22] LABS: POC Glucose,Bedside 261 (70-110)
--- NOTE | 2020-10-11 04:20 | PC.NURSE ---
Pt oriented X 4 and is resting comfortably in bed with eyes closed. Patient cooperative and pleasant. Patient administered a total of 3 Abx this shift for BLE Cellulitis. Patient has made frequest trips to the bathroom with assistance this shift. Patient did not require pain medicine this shift. VSS, Coverage for BG of 261. Will continue to monitor for any acute changes.
[2020-10-11 06:20] LABS: POC Glucose,Bedside 153 (70-110)
--- NOTE | 2020-10-11 06:41 | HMH.DCSUM ---
General - General Admission date:: 10/08/20 Discharge date: 10/11/20 HPI HPI: Mr. 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 History obtained from patient, though he is a poor historian, as well as from ER documentation. He reportedly was brought in by ambulance with report of altered mental status. 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 However, his stated in the ER that he always shakes and in fact is on medication for his shaking, she does not remember what the medicine is (propranolol per home med list). On arrival he was having nausea and vomiting. Denied any pain or preceding illnesses that he is aware of. He denied chest pain or shortness of breath, headache, abdominal pain, and fever. His thought he might of just gotten overheated. However, on assessment today he appears SOA. is on O2 (denies wearing at home). Continues to feel fatigued. Had an elevated temperature this morning to 100 degrees but no allan fever over 100.4. Temperature is resolved. Labs worse this morning his kidney function has progressed to creatinine greater than 3 even after fluid resuscitation. BNP obtained this morning showing significant elevation over 1999. Patient denies any specific cardiac history however review of medications shows multiple meds for hypertension and volume overload. Patient has tolerated breakfast and lunch without difficulty. Hernandez catheter still in place with moderate urine output. Denies any nausea or diarrhea. No family at bedside. Hospital Course Hospital Course: 75-year-old gentleman with multiple comorbidities who presented to the ER at [facility] via EMS after being found by a tower air traffic control specialist (that he called to help with his truck) laying by his truck. On presentation, difficult time getting a clear history from patient and his . 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 On initial assessment patient was tachycardic, tachypneic, had white cell count. Meeting criteria for sepsis. Was given fluids and started on antibiotics. Cultures were obtained. During first 24 hours, patient's creatinine unfortunately worsened with fluid/volume repletion. Transition to diuresis given concern for CHF exacerbation with finding of crackles on lung exam, significant peripheral edema, new oxygen requirement. Patient responded well to diuresis and antibiotics over the next several days through the remainder of his hospitalization. Symptoms defervesced, able to come off oxygen. Meeting criteria for discharge home and continued management as an outpatient. Problems addressed as follows: Sepsis/bacteremia -Responded to IV antibiotics. Bacterial cultures positive for strep canis species. Pansensitive. Transition to doxycycline to complete total of 2 weeks of antibiotics. Likely source is either urine or his cellulitis with his leg or wound on his foot from his toenail noted on exam. Echo was obtained to assess CHF, no obvious findings of valvular abnormalities. Acute on chronic CHF exacerbation -Echo obtained showing EF 45 to 50%, diastolic dysfunction. Given crackles on exam and significant edema, diuresed aggressively during admission. -Improved volume status through admission. Stressed importance of taking his Lasix daily as opposed to as needed. Able to wean off oxygen. -Creatinine improved through diuresis, suspect he has a component of cardiorenal syndrome as well. -Benefit from close follow-up and further management as an outpatient. -Needs repeat labs in a week to monitor kidney function and electrolytes Type 2 diabetes, insulin-dependent -Uncontrolled on admission. A1c 10.5. Continued on sliding scale insulin, r
[2020-10-11 07:31] LABS: Anion Gap 11.4 mEq/L (5-15); Blood Urea Nitrogen 52 mg/dl (9-20); Calcium 9.4 mg/dl (8.4-10.2); Carbon Dioxide 31 mmol/L (22.0-30.0); Chloride 101 mmol/L (98-107); Creatinine Clearance Estimated 60 mL/min (50-200); Estimated Glomerular Filt Rate 35 ml/min (>60); GFR (African American) 42 ML/MIN (>60); Glucose 148 mg/dl (74-100); Potassium 4.4 mmoL/L (3.5-5.1); Sodium 139 mmol/L (136-145)
--- NOTE | 2020-10-11 07:36 | SW/DCPLANNER ---
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 HE AND RESIDE IN [facility], DRIVES AND MANAGES HIS OWN PERSONAL NEEDS...HE IS GOING TO DISCHARGE HOME TODAY AND I AM GOING TO TRY AND ATTEMPT TO SET HIM UP WITH HOME HEALTH AND STRESS HE WILL NEED TO BE HOMEBOUND... 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
[2020-10-11 07:39] LABS: Basophils # 0.1 K/mm3 (0-0.2); Basophils % 0.7 % (0.1-2.0); Eosinophils # 0.3 K/mm3 (0.0-0.4); Eosinophils % 2.6 % (0.1-12.0); Lymphocytes # 1.9 K/mm3 (0.7-4.5); Lymphocytes % 18.7 % (10-50); Mean Corpuscular HGB Conc 32.4 g/dL (31.8-35.4); Mean Corpuscular Hemoglobin 27.8 pg (27.0-31.2); Mean Corpuscular Volume 85.6 fl (80-94); Mean Platelet Volume 8.3 fl (7.4-10.4); Monocytes # 0.5 K/mm3 (0.1-1.0); Monocytes % 5.3 % (1.7-9.3); Neutrophils # 7.2 K/mm3 (1.8-7.8); Neutrophils % 72.8 % (37.0-80.0); Platelet Count 288 K/mm3 (142-424); Red Blood Count 3.97 M/mm3 (4.60-6.20); Red Cell Distribution Width 14.9 % (11.5-17.5); White Blood Count 9.9 K/mm3 (4.8-10.8)
--- NOTE | 2020-10-11 11:19 | HMH.ACPN ---
Internal Medicine - PN: Subj *Date: 10/11/20 *Time: 11:19 Exam Vital signs and Labs for Last 24 Hours: Temp Pulse Resp BP Pulse Ox 97.9 F 70 20 176/84 H 97 10/11/20 07:28 10/11/20 08:00 10/11/20 07:28 10/11/20 07:28 10/11/20 07:28 Laboratory Results - last 24 hr 10/10/20 11:18: POC Glucose 371 H* 10/10/20 16:44: POC Glucose 263 H 10/10/20 21:50: POC Glucose 261 H 10/11/20 06:00: POC Glucose 153 H 10/11/20 07:11: WBC 9.9 D, RBC 3.97 L, Hgb 11.0 L, Hct 34.0 L, MCV 85.6, MCH 27.8, MCHC 32.4, RDW 14.9, Plt Count 288, MPV 8.3, Neut % (Auto) 72.8, Lymph % (Auto) 18.7, [place] % (Auto) 5.3, Eos % (Auto) 2.6, Baso % (Auto) 0.7, Neut # (Auto) 7.2, Lymph # (Auto) 1.9, [place] # (Auto) 0.5, Eos # (Auto) 0.3, Baso # (Auto) 0.1 10/11/20 07:11: Sodium 139, Potassium 4.4, Chloride 101, Carbon Dioxide 31 H, Anion Gap 11.4, BUN 52 H, Creatinine 1.90 H, Estimated Creat Clear 60, Estimated GFR 35 L, Est GFR ( Amer) 42 L, Glucose 148 H, Calcium 9.4 I & O for Last 24 hours: Intake & Output 10/08/20 10/09/20 10/10/20 10/11/20 23:59 23:59 23:59 23:59 Intake Total 1240 / 1240 1320 / 1320 1940 / 1940 1340 / 1340 Output Total 1900 / 2800 4800 / 5250 2300 / 2300 550 / 550 Balance -660 / -1560 -3480 / -3930 -360 / -360 790 / 790 Weight 123.944 kg 123.944 kg 122 kg 122.725 kg Microbiology Reports for the Last 24 Hours: Microbiology 10/07/20 19:09 Blood - Final Not Reportable 10/07/20 19:09 Blood - Final Not Reportable 10/07/20 19:09 Blood - Final Not Reportable 10/07/20 19:09 Blood - Final Not Reportable 10/07/20 19:09 Blood - Final Not Reportable 10/07/20 19:09 Blood Blood Culture - Final Gram Positive Cocci 10/08/20 07:43 Urine,Clean Catch Urine Culture - Final NO GROWTH AFTER 48 HOURS Assessment and Plan (1) Acute CHF (congestive heart failure) Status: Acute Category: Medical Code(s): I50.9 - Heart failure, unspecified (2) Urinary tract infection Status: Acute Category: Medical Code(s): N39.0 - Urinary tract infection, site not specified (3) Acute hypoxemic respiratory failure Status: Acute Category: Medical Code(s): J96.01 - Acute respiratory failure with hypoxia (4) Acute kidney injury Status: Acute Category: Medical Code(s): N17.9 - Acute kidney failure, unspecified (5) Insulin dependent diabetes mellitus Status: Chronic Category: Medical (6) Essential hypertension Status: Chronic Category: Medical Code(s): I10 - Essential (primary) hypertension (7) Gout Status: Chronic Category: Medical Code(s): M10.9 - Gout, unspecified (8) Vomiting Status: Resolved Qualifiers: Vomiting type: unspecified Vomiting Intractability: non-intractable Nausea presence: with nausea Qualified Code(s): R11.2 - Nausea with vomiting, unspecified Category: Medical Code(s): R11.10 - Vomiting, unspecified (9) Class II obesity Status: Chronic Category: Medical Code(s): E66.9 - Obesity, unspecified (10) Anemia Status: Chronic Category: Medical Code(s): D64.9 - Anemia, unspecified (11) Cellulitis and abscess of left lower extremity Status: Acute Category: Medical Code(s): L03.116 - Cellulitis of left lower limb; L02.416 - Cutaneous abscess of left lower limb The patient's infection will respond to the chosen ABx?: Yes Is the patient receiving the right drug, dose, and route?: Yes Could a more targeted ABx be ordered?: No
--- NOTE | 2020-10-11 12:05 | SW/DCPLANNER ---
SET UP HOME HEALTH SERVICES WITH PERSONAL TOUCH OUT OF [facility] PER PATIENT REQUEST.... HE IS TO RECEIVE PT, LONG-TERM TO APPLY UNNA BOOT TO LEFT LOWER EXTREMITY X 3 TO FOUR DAYS AND EVALUATE FOR MEDICATION COMPLIANCE AND MANAGEMENT... PATIENT IS DISCHARGING TO HOME TODAY TO FOLLOW UP WITH HIS PRIMARY DOCTOR IN [place], DR CASTILLO....
[2020-10-11 12:07] LABS: POC Glucose,Bedside 242 (70-110)
--- NOTE | 2020-10-11 12:11 | PC.NURSE ---
PT IS SITTING UP IN THE CHAIR. ALERT AND ORIENTED X4. O2 SATURATION HAS MAINTAINED 94-97% ON ROOM AIR T/O THE SHIFT. LUNG SOUNDS DIMINISHED WITH FINE CRACKLES IN THE BILATERAL BASES. VOIDING PER URINAL. ABDOMEN LARGE/FIRM WITH ACTIVE BOWEL SOUNDS. EATING AND DRINKING WELL. 3+ EDEMA NOTED TO RLE WITH REDNESS NOTED. SWELLING HAS IMPROVED SINCE YESTERDAY. VSS. PT STATES HE REALLY WANTS TO GO HOME TODAY. WILL CONTINUE TO MONITOR.
--- NOTE | 2020-10-11 16:07 | HMH.PHAINT ---
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 NOTED ON DISCHARGE SHEET TO START DOXYCYCLINE TONIGHT AND BID THEREAFTER IN CASE IS HERE AFTER HOURS. TAKE LASIX DAILY INSTEAD OF PRN AND HOLD LISINOPRIL UNTIL FOLLOW UP WITH MD.
[2020-10-11 16:23] LABS: POC Glucose,Bedside 340 (70-110)
== END 2020-10-11 18:06 | disposition home health service (06) | DRG 682 ==
LOC: ER 22:22 → 2ND 10-08 00:33
PROVIDERS: Emergency Medicine; Internal Medicine Adolescent Medicine; Admitting Provider Internal Medicine Adolescent Medicine; Emergency Provider Emergency Medicine; PCP Pediatrics; Visit Provider Internal Medicine Adolescent Medicine
DX: A41.9 Sepsis, unspecified organism (principal); J96.01 Acute respiratory failure with hypoxia; I50.43 Acute on chronic combined systolic (congestive) and diastolic (congestive) heart failure; N39.0 Urinary tract infection, site not specified; N17.9 Acute kidney failure, unspecified; L03.116 Cellulitis of left lower limb; L02.416 Cutaneous abscess of left lower limb; E86.0 Dehydration; M1A.9XX0 Chronic gout, unspecified, without tophus (tophi); E66.9 Obesity, unspecified; D64.9 Anemia, unspecified; Z68.36 Body mass index [BMI] 36.0-36.9, adult; I11.0 Hypertensive heart disease with heart failure; Z88.8 Allergy status to other drugs, medicaments and biological substances; Z91.040 Latex allergy status; E11.65 Type 2 diabetes mellitus with hyperglycemia; R11.2 Nausea with vomiting, unspecified; Z79.4 Long term (current) use of insulin
CPT/HCPCS: 36415; 70450; 71045; 71046; 80048; 80053; 80305; 81001; 82962; 83036; 83605; 83735; 83880; 84443; 84484; 85007; 85025; 87040; 87077; 87086; 87186; 87581; 87633; 87798; 93005; 93306; 93971; 94760; 96365; 96366; 96367; 97116; 97161; 99284; J0456

== ENCOUNTER → 2022-01-06 12:30 | Outpatient (CLI) | payer MEDICARE, SELFPAY | PROVIDERS: PCP Family Medicine; Visit Provider Ophthalmology | DX: Z01.812 Encounter for preprocedural laboratory examination (principal); Z20.822 Contact with and (suspected) exposure to COVID-19 | CPT/HCPCS: C9803; U0003; U0005 ==

== ENCOUNTER → 2022-02-26 18:19 | Outpatient (CLI) | payer MEDICARE, SELFPAY | PROVIDERS: PCP Family Medicine; Visit Provider Ophthalmology | DX: Z01.812 Encounter for preprocedural laboratory examination (principal); Z20.822 Contact with and (suspected) exposure to COVID-19; H25.012 Cortical age-related cataract, left eye | CPT/HCPCS: C9803; U0003; U0005 ==

== ENCOUNTER 2022-02-27 09:09 | Day surgery (SDC) | payer MEDICARE, SELFPAY ==
[2022-02-27] VITALS (7 sets, daily range): BP systolic 147–187; BP diastolic 72–84; PULSE 59–64; RESP 18–20; TEMP 36.2–36.6; O2SAT 97–100; BMI 39.0
[2022-02-27 09:45] LABS: POC Glucose,Bedside 201 (70-110)
== END 2022-02-27 11:25 | disposition home or self-care (01) ==
LOC: OR 09:11
PROVIDERS: PCP Family Medicine; Visit Provider Ophthalmology
DX: H26.9 Unspecified cataract (principal); Z79.899 Other long term (current) drug therapy; E11.9 Type 2 diabetes mellitus without complications
CPT/HCPCS: 66984; 82962; V2632

== ENCOUNTER 2022-03-13 08:57 | Day surgery (SDC) | payer MEDICARE, SELFPAY ==
[2022-03-13 09:35] VITALS: BMI 35.9
[2022-03-13 09:39] VITALS: BP 148/71; PULSE 62; RESP 19; TEMP 36.4; O2SAT 96
[2022-03-13 10:07] LABS: POC Glucose,Bedside 170 (70-110)
[2022-03-13 10:43] VITALS: BP 184/84; PULSE 63; RESP 18; O2SAT 95
[2022-03-13 10:45] VITALS: BP 179/73; PULSE 62; RESP 18; O2SAT 97
[2022-03-13 10:50] VITALS: BP 174/70; PULSE 61; RESP 18; O2SAT 95
[2022-03-13 10:55] VITALS: BP 168/74; PULSE 61; RESP 18; O2SAT 95
[2022-03-13 11:05] VITALS: BP 158/81; PULSE 62; RESP 18; TEMP 37.1; O2SAT 98
== END 2022-03-13 11:17 | disposition home or self-care (01) ==
PROVIDERS: PCP Family Medicine; Visit Provider Ophthalmology
DX: H25.811 Combined forms of age-related cataract, right eye (principal); E11.36 Type 2 diabetes mellitus with diabetic cataract
CPT/HCPCS: 66984; 82962; V2632

== ENCOUNTER 2023-04-05 08:30 | Inpatient (IN) | payer MEDICARE, SELFPAY ==
[2023-04-05] VITALS (16 sets, daily range): BP systolic 127–176; BP diastolic 60–94; PULSE 73–109; RESP 16–26; TEMP 36.6–37.8; O2SAT 91–97; BMI 40.6; BMI 39.7
--- NOTE | 2023-04-05 | CT_ITS ---
FINAL REPORT TECHNIQUE: After the administration of intravenous contrast, axial images were obtained through the abdomen and pelvis by computed tomography. This study was performed with technique to keep radiation doses as low as reasonably achievable, (ALARA). Individualized dose reduction techniques using automated exposure control or adjustment of the MA and/or KV according to the patient's size were employed. CLINICAL HISTORY: abd pain FINDINGS: Abdomen: Patient is status postcholecystectomy. The liver is normal in size and attenuation. The spleen is unremarkable. The adrenals are normal. The pancreas is unremarkable. There is a 32 mm cyst in the lower pole of the right kidney. Otherwise, the kidneys enhance appropriately. There is ectasia of the abdominal aorta measuring 31 mm. There is no free fluid or adenopathy. Pelvis: Patient is status post left hip arthroplasty. The appendix is normal. The urinary bladder is unremarkable. There is no free fluid or adenopathy. IMPRESSION: 32 mm right renal cyst. Ectasia of the abdominal aorta. Reviewed, Interpreted and Dictated by Jayme Hsu III, MD Transcribed by Tayler Gallegos Authenticated and [facility]
--- NOTE | 2023-04-05 08:22 | ECG_ITS ---
APPROVED REPORT Exam: Resting ECG HR:105 bpm ECG Measurements Heart Rate 105 AXES NV 229 P 88 QRSd 142 QRS -90 QT 333 T 66 QTc 394 Conclusion SINUS TACHYCARDIA WITH FIRST DEGREE AV BLOCK RIGHT BUNDLE BRANCH BLOCK [120+ ms QRS DURATION, UPRIGHT V1, 40+ ms S IN I/aVL/V4/V5/V6] INFERIOR MYOCARDIAL INFARCTION , POSSIBLY ACUTE [40+ ms Q WAVE AND/OR ST/T ABNORMALITY IN II/aVF] ANTEROLATERAL MYOCARDIAL INFARCTION , OF INDETERMINATE AGE [40+ ms Q WAVE IN I/aVL/V3-V6] ACUTE DC UNCONFIRMED REPORT Electronically signed by : Collins Muñoz MD 04/05/2023 21:25:12
--- NOTE | 2023-04-05 08:30 | XR_ITS ---
FINAL REPORT TECHNIQUE: Single view chest CLINICAL HISTORY: L shoulder pain, emesis COMPARISON: 10/10/2020 FINDINGS: A single view of the chest was obtained. The heart and mediastinum are within normal limits. There are worsening bibasilar opacities which may present atelectasis or pneumonia. There is no pneumothorax. Osseous structures are unremarkable. IMPRESSION: Worsening bibasilar opacities which may represent atelectasis or pneumonia. Reviewed, Interpreted and Dictated by Jayme Hsu III, MD Transcribed by Tayler Gallegos Authenticated and [facility]
--- NOTE | 2023-04-05 08:30 | XR_ITS ---
FINAL REPORT CLINICAL HISTORY: pain this AM FINDINGS: LEFT SHOULDER 3 views of the left shoulder were obtained. There is no acute fracture or dislocation. There is mild AC joint arthrosis. Visualized joint spaces are normally aligned. Soft tissues are unremarkable. IMPRESSION: No acute bony abnormality. Reviewed, Interpreted and Dictated by Jayme Hsu III, MD Transcribed by Tayler Gallegos Authenticated and [facility]
--- NOTE | 2023-04-05 08:33 | HMH.EDGENADL ---
Discharge Plan Disposition Patient Disposition: Admitted Condition: Fair Prescriptions Prescriptions: No Action allopurinol 100 MG tablet 100 mg PO DAILY omeprazole 20 MG capsule,delayed release(DR/EC) 20 mg PO DAILY ergocalciferol (vitamin D2) 50,000 UNIT capsule 50,000 unit PO WEEKLY Patient Comments: TAKE 1 CAPSULE BY MOUTH ONE TIME PER WEEK insulin aspart U-100 100 UNIT/ML insulin pen 10 units SQ TID Patient Comments: SUBCUTANEOUS (INJECT UNDER THE SKIN) 10 UNITS 3 TIMES DAILY (BEFORE MEALS). torsemide 20 mg tablet 20 mg PO BID Patient Comments: TAKE 1 TABLET BY MOUTH 2 TIMES DAILY. levothyroxine 50 mcg tablet 50 mcg PO DAILY Patient Comments: TAKE 1 TABLET BY MOUTH DAILY. TAKE ON EMPTY STOMACH 30-45 MIN SEPARATE FROM OTHER FOOD/MEDICATIONS. Trelegy Ellipta 100-62.5-25 mcg blister with device 1 inh INHALATION DAILY Patient Comments: INHALE 1 PUFF INTO THE LUNGS ONCE DAILY. propranolol 80 mg capsule,extended release 24 hr 80 mg PO DAILY diltiazem HCl 120 mg capsule,extended release 24hr 120 mg PO DAILY Patient Comments: TAKE 1 CAPSULE BY MOUTH DAILY. hydralazine 50 mg tablet 50 mg PO TID Patient Comments: TAKE 1 TABLET BY MOUTH 3 TIMES DAILY insulin degludec [Tresiba FlexTouch U-200] 200 unit/mL (3 mL) insulin pen 60 unit SQ BID atorvastatin 40 MG tablet 40 mg PO HS potassium chloride 10 MEQ tablet extended release 10 meq PO DAILY aspirin 81 MG tablet,chewable 81 mg PO DAILY montelukast 10 MG tablet 10 mg PO PM pregabalin 25 MG capsule 25 mg PO TID Referrals Follow up/Referrals: Provider,Referral, [Primary Care Provider] - See instructions Clinical Impressions Clinical Impression: Acute pain of left shoulder, Elevated troponin Pneumonia Qualifiers: Pneumonia type: due to unspecified organism Laterality: left Lung location: lower lobe of lung Qualified Code(s): J18.9 - Pneumonia, unspecified organism Discharge ED Provider: Naresh Smith General Adult HPI General Chief complaint: PAIN Stated complaint: CP Time Seen by Provider: 04/05/23 08:30 History of Present Illness HPI narrative: This 77-year-old male presents to the emergency department with concerns of left shoulder pain, vomiting that suddenly onset around 3 AM this morning. Patient is a poor historian. His called with his medication list which indicates he has a history of CHF, hypertension, diabetes. Patient states he does not have any history of trauma. He states he has not otherwise been feeling sick. He is supposed to have surgery coming up at [facility]. He gets most of his care there. He is not able to tell me what surgery he is supposed to have. Patient does not ambulate. Patient denies fevers, difficulty breathing, diarrhea, or other associated symptoms. EMS reports they gave him aspirin 324 mg in route. They attempted to obtain IV access but were unsuccessful. Their twelve-lead EKG read STEMI which was sent to the hospital. It appears to be a bundle branch without STEMI. Customer Experience Specialist agrees. Formal EKG pending Related Data Home Medications Medication Instructions Recorded Confirmed allopurinol 100 mg tablet 100 mg PO DAILY Gout 10/07/20 04/05/23 ergocalciferol (vitamin D2) 1,250 50,000 unit PO WEEKLY Supplement 10/07/20 04/05/23 mcg (50,000 unit) capsule insulin aspart U-100 100 unit/mL 10 units SQ TID Diabetes 10/07/20 04/05/23 (3 mL) subcutaneous pen omeprazole 20 mg capsule,delayed 20 mg PO DAILY Acid Reflux 10/07/20 04/05/23 release aspirin 81 mg chewable tablet 81 mg PO DAILY Heart Health 01/04/22 04/05/23 atorvastatin 40 mg tablet 40 mg PO HS Cholesterol 01/04/22 04/05/23 montelukast 10 mg tablet 10 mg PO PM Allergy Symptoms 01/04/22 04/05/23 potassium chloride 10 mEq 10 meq PO DAILY Supplement 01/04/22 04/05/23 tablet,extended release pregaba
--- NOTE | 2023-04-05 08:35 | PC.NURSE ---
notified RT of VBG order
[2023-04-05 08:38] LABS: VBG Base Excess 2.9 mmol/L (-2.4-2.3); VBG HCO3 27.1 mmol/L (23-30); VBG Oxygen Saturation 99.4 % (50-70); VBG PCO2 41.4 mmol/L (35-51); VBG PH 7.43 mmol/L (7.31-7.41); VBG PO2 164.2 mmol/L (28-40); VBG Total CO2 28.4 mmol/L (23-27)
[2023-04-05 08:41] LABS: Basophils # 0.1 K/mm3 (0-0.2); Basophils % 0.3 % (0.1-2.0); Chloride 101 mmol/L (98-107); Eosinophils # 0.3 K/mm3 (0.0-0.4); Eosinophils % 1.5 % (0.1-12.0); Hematocrit 39.7 % (42.0-52.0); Hemoglobin 13.4 g/dL (14.1-18.0); Lymphocytes # 0.9 K/mm3 (0.7-4.5); Lymphocytes % 4.7 % (10-50); Mean Corpuscular HGB Conc 33.8 g/dL (31.8-35.4); Mean Corpuscular Hemoglobin 28.7 pg (27.0-31.2); Mean Platelet Volume 8.6 fl (7.4-10.4); Monocytes # 0.8 K/mm3 (0.1-1.0); Monocytes % 4.5 % (1.7-9.3); Neutrophils # 16.8 K/mm3 (1.8-7.8); Neutrophils % 89.1 % (37.0-80.0); Platelet Count 244 K/mm3 (142-424); Red Blood Count 4.67 M/mm3 (4.60-6.20); Red Cell Distribution Width 17.1 % (11.5-17.5); Sodium 141 mmol/L (136-145); White Blood Count 18.8 K/mm3 (4.8-10.8)
[2023-04-05 08:42] LABS: Potassium 4.9 mmoL/L (3.5-5.1)
[2023-04-05 08:43] LABS: MANUAL DIFFERENTIAL MANUAL DIFFERENTIAL (MANUAL DIFF)
[2023-04-05 08:44] LABS: Alanine Aminotransferase 37 U/L (12-78); Albumin Level 4.3 g/dl (3.5-5.0); Albumin/Globulin Ratio 1.3 (1.1-1.8); Alkaline Phosphatase 112 U/L (38-126); Anion Gap 12.9 mEq/L (5-15); Aspartate Amino Transferase 45 U/L (17-59); Bilirubin,Total 0.8 mg/dl (0.2-1.3); Blood Urea Nitrogen 61 mg/dl (9-20); Calcium 9.2 mg/dl (8.4-10.2); Carbon Dioxide 32 mmol/L (22.0-30.0); Creatinine Clearance Estimated 58 mL/min (50-200); Estimated Glomerular Filt Rate 31 ml/min (>60); GFR (African American) 37 ML/MIN (>60); Globulin 3.4 g/dL (1.3-3.2); Glucose 122 mg/dl (74-100); Lipase 31 U/L (23-300); Total Protein,Serum 7.7 g/dl (6.3-8.2)
[2023-04-05 08:54] LABS: NT Pro Brain Natriuretic Pep. 422 pg/mL (0-450)
[2023-04-05 08:57] LABS: Anisocytosis 1+; Eosinophils % 1 % (0-3); Lymphocytes % 5 % (10-50); Microcytosis 1+; Monocytes % 4 % (2-9); Neutrophils % 90 % (42-76); Platelet Estimate Normal; Total Cells Counted 100; Troponin I 0.02 ng/ml (0.00-0.034)
--- NOTE | 2023-04-05 09:12 | PC.NURSE ---
notified pharmacy of vancomycin consult
--- NOTE | 2023-04-05 09:15 | EXP.PHA.CONS ---
Pharmacy Consult Date: 04/05/23 Time: 09:15 Referring provider: DR. EDOUARD Reason for Consult:: VANCOMYCIN DOSING Allergies Allergy/AdvReac Type Severity Reaction Status Date / Time latex [LATEX] Allergy Unknown Verified 04/05/23 08:59 iv contrast Allergy Mild Uncoded 01/04/22 13:56 Home Medications Medication Instructions Recorded Confirmed Type allopurinol 100 mg tablet 100 mg PO DAILY Gout 10/07/20 04/05/23 History ergocalciferol (vitamin D2) 1,250 1 tab PO WEEKLY Supplement 10/07/20 04/05/23 History mcg (50,000 unit) capsule insulin aspart U-100 100 unit/mL 10 units SQ TID Diabetes 10/07/20 04/05/23 History (3 mL) subcutaneous pen omeprazole 20 mg capsule,delayed 20 mg PO DAILY GERD 10/07/20 04/05/23 History release propranolol 60 mg capsule,24 80 mg PO DAILY BLOOD PRESSURE 10/08/20 04/05/23 History hr,extended release aspirin 81 mg chewable tablet 81 mg PO DAILY . 01/04/22 04/05/23 History atorvastatin 40 mg tablet 40 mg PO HS Cholesterol 01/04/22 04/05/23 History diltiazem HCl 120 mg 120 mg PO Q12H BP 01/04/22 04/05/23 History capsule,extended release 12 hr furosemide 40 mg tablet 40 mg PO DAILY water retention 01/04/22 04/05/23 History guaifenesin 200 mg tablet 200 mg PO BID mucous 01/04/22 04/05/23 History hydralazine 25 mg tablet 50 mg PO TID * 01/04/22 04/05/23 History insulin degludec 100 unit/mL 60 unit SQ DAILY Diabetes 01/04/22 04/05/23 History subcutaneous solution montelukast 10 mg tablet 10 mg PO DAILY allergies 01/04/22 04/05/23 History potassium chloride 10 mEq 10 meq PO DAILY Supplement 01/04/22 04/05/23 History tablet,extended release pregabalin 25 mg capsule 25 mg PO TID * 01/04/22 04/05/23 History fluticasone fur. 100 mcg-umeclid 25 ea inhalation DAILY 04/05/23 04/05/23 History 62.5 mcg-vilant 25 mcg inhalat.powder (Trelegy Ellipta) levothyroxine 50 mcg tablet 50 mcg PO DAILY 04/05/23 04/05/23 History torsemide 20 mg tablet 20 mg PO BID 04/05/23 04/05/23 History New Prescriptions to Start Prescriptions: Height: 1.83 m Weight: 136.078 kg Laboratory Results:: Laboratory Results - last 24 hr 04/05/23 08:29: WBC 18.8 H, RBC 4.67, Hgb 13.4 L, Hct 39.7 L, MCV 85.0, MCH 28.7, MCHC 33.8, RDW 17.1, Plt Count 244, MPV 8.6, Neut % (Auto) 89.1 H, Lymph % (Auto) 4.7 L, [place] % (Auto) 4.5, Eos % (Auto) 1.5, Baso % (Auto) 0.3, Neut # (Auto) 16.8 H, Lymph # (Auto) 0.9, [place] # (Auto) 0.8, Eos # (Auto) 0.3, Baso # (Auto) 0.1, Total Counted 100, Neutrophils % (Manual) 90 H, Lymphocytes % (Manual) 5 L, Monocytes % (Manual) 4, Eosinophils % (Manual) 1, Platelet Estimate Normal, Anisocytosis 1+, Microcytosis 1+, Sodium 141, Potassium 4.9, Chloride 101, Carbon Dioxide 32 H, Anion Gap 12.9, BUN 61 H, Creatinine 2.10 H, Estimated Creat Clear 58, Estimated GFR 31 L, Est GFR ( Amer) 37 L, Glucose 122 H, Calcium 9.2, Total Bilirubin 0.8, AST 45, ALT 37, Alkaline Phosphatase 112, Troponin I 0.02, NT-Pro-B Natriuret Pep 422, Total Protein 7.7, Albumin 4.3, Globulin 3.4 H, Albumin/Globulin Ratio 1.3, Lipase 31 04/05/23 08:30: VBG pH 7.43 H, VBG pCO2 41.4, VBG pO2 164.2 H, VBG HCO3 27.1, VBG Total CO2 28.4 H, VBG O2 Saturation 99.4 H, VBG Base Excess 2.9 H Medical History: Medical History (Updated 02/27/22 @ 09:32 by Latoya Maynard RN) Allergies Arthritis Cataract Cellulitis Congestive heart failure COPD (chronic obstructive pulmonary disease) Diabetes mellitus, type 2 Edema History of cataract History of COVID-19 History of gastroesophageal reflux (GERD) History of stroke Hyperlipidemia Hypertension Pneumonia Skin cancer Sleep apnea Assessment and Plan Assessment and plan all Dx Assessment and Plan for all problems:: Pharmacokinetic dosing service Objective: Patient: Floor: Age: 77 yo Serum creatinine: 2.10 mg/dL Height: 72.0 Inches Weight (kg): 136 Assessment: IB
[2023-04-05 09:22] LABS: Lactate Arterial 2.3 mmol/L (0.4-2.0)
--- NOTE | 2023-04-05 09:30 | HMH.PHAINT1 ---
Pharmacy Intervention Comments: MEDICATION RECONCILIATION COMPLETED ON PATIENT USING EXTERNAL FILL HISTORY FROM PHARMACY. -HILARIO WILSON, JESSICAD
--- NOTE | 2023-04-05 09:32 | CT_ITS ---
FINAL REPORT CLINICAL HISTORY: pain COMPARISON: Acute chest pain FINDINGS: Axial CT images of the chest were obtained with contrast. Coronal reformatted images were also obtained. This study was performed with techniques to keep radiation doses as low as reasonably achievable, (ALARA). Individualized dose reduction techniques using automated exposure control or adjustment of mA and/or KV according to the patient''''s size were employed. There are borderline mediastinal lymph nodes. No axillary mass or adenopathy is identified. There is bibasilar atelectasis. In the medial right upper lobe is a 2 mm nodule seen on image 21. There is also a 42 mm left base soft tissue opacity of uncertain etiology. Lungs are otherwise clear. IMPRESSION: Right lower lobe nodule and left lower lobe soft tissue opacity of uncertain etiology. Recommend PET CT and/or short-term follow-up CT in 3 months. Reviewed, Interpreted and Dictated by Jayme Hsu III, MD Transcribed by Tayler Gallegos Authenticated and [facility]
--- NOTE | 2023-04-05 09:58 | PC.NURSE ---
pt requesting something to drink - explained to pt would have to wait until CT scans are back. offered pt a mouth swab to wet his mouth-pt declined
--- NOTE | 2023-04-05 10:17 | HMH.ITSTN ---
GFR completion/results were overrode for the use of contrast media by the Physician on a risk vs. benefit situation with this patient. Patient was pre-medicated and given bolus 250ml IV fluids.
--- NOTE | 2023-04-05 12:31 | PC.NURSE ---
contacted rad to check on status of ct results- states sending down prelim results
[2023-04-05 12:38] LABS: Troponin I 0.03 ng/ml (0.00-0.034)
[2023-04-05 12:48] LABS: Lactic Acid 1.4 mmol/L (0.7-2.1)
--- NOTE | 2023-04-05 13:37 | PC.NURSE ---
Pt incontinent of bladder. Pt cleaned up and changed into gown. No other needs voiced. Call light within reach.
--- NOTE | 2023-04-05 13:54 | CA_ITS ---
APPROVED REPORT EXAM: Comprehensive 2D, Doppler, and color-flow Echocardiogram Scientific Linguist: Sita Hickman RVT Ht: 6 ft 0 in Wt: 300lbs BSA: 2.53 BP: 140/70 mmHg Indications: CP,HX CHF,COPD,DM,HTN,HLD,EX SMOKER,OBESITY,GERD 2D Dimensions LVOT 2.41 cm (M/F) 1.5-2.5 LA Volume 89.70 mL LA Volume Index 35.45 mL/m2 (M/F) 16-34 M-Mode Dimensions RVDd 4.23 cm (0.9-2.6) LA Diam 4.73 cm (1.9-4.0) LVDd 4.76 cm (3.5-5.7) Ao Diam 3.68 cm (2.0-3.7) LVDs 3.11 cm (3.5-5.7) IVSd 1.29 cm (0.6-1.1) PWd 0.62 cm (0.6-1.1) EF (Teich) 63.80% FS 34.70% EDV (Teich) 105.40 mL TAPSE 3.15 (<1.7) ESV (Teich) 38.20 mL LV Diastology E Decel Time 263.00 (160-240 msec) E/A Ratio 0.9 MED E' 6.90 (< 7 cm/sec) E'/MED E' Ratio 16.01 (>14) LAT E' 6.50 (<10 cm/sec) E/LAT E' Ratio 17.00 (>14) Aortic Valve LVOT Max 117.00 (70-110 cm/s) LVOT VTI 22.99 cm AoV Peak Matthew. 206.00 (50-130 cm/s) AO Peak GR. 17.10 mmHg AO Mean GR. 9.00 (<5 mmHg) AO VTI 42.03 (18-25 cm) ELIZA (VTI) 2.50 (2.5-4.5 cm2) Mitral Valve MV E Max Matthew. 110.00 (40-130 cm/s) MV A Velocity 128.00 (40-130 cm/s) E/A Ratio 0.86 MV Decel. Time 263.00 (160-240 ms) MV PHT 77.00 ms Pulmonary Valve PV Peak Velocity 125.00 (50-150 cm/s) Tricuspid Valve TR P. Velocity 240.00 cm/s RAP Estimate 10.00 mmHg RVSP 33.00 mmHg Left Ventricle The left ventricle is normal size. The left ventricular systolic function is normal. The left ventricular ejection fraction is within the normal range. There is increased LV wall thickness. There is normal LV segmental wall motion. Diastolic function is indeterminate. LVEF is 55%. Right Ventricle Right ventricle is mildly dilated. The right ventricular systolic function is normal. Atria Left atrium is mildly dilated. The right atrium size is mildly dilated. There is no Doppler evidence of interatrial shunt. Aortic Valve The aortic valve is mildly thickened. There is no aortic valvular stenosis. Trace aortic regurgitation. Mitral Valve The mitral valve leaflets are mildly thickened. No evidence of mitral valve stenosis. Trace mitral regurgitation. Tricuspid Valve The tricuspid valve leaflets are thin and pliable. Mild tricuspid regurgitation. RVSP is 25-30 mmHg. Pulmonic Valve The pulmonary valve is normal in structure. Trace pulmonic regurgitation. Great Vessels The aortic root is normal in size. The ascending aorta is normal in size. IVC is normal in size and collapses >50% with inspiration. Pericardium There is no pericardial effusion. Other Information Study Quality: Fair Conclusion Normal biventricular systolic function. Mildly dilated RV. Mild biatrial dilatation. No significant valvular stenosis or regurgitation. Electronically signed by : Fiona Adams MD 04/05/2023 20:41:15
--- NOTE | 2023-04-05 13:55 | PC.NURSE ---
notified care management of admission
--- NOTE | 2023-04-05 14:14 | PC.NURSE ---
Echo at bedside
--- NOTE | 2023-04-05 14:24 | PC.NURSE ---
Report called to ANA Reeves at this time.
--- NOTE | 2023-04-05 14:41 | PC.NURSE ---
arrived by stretcher from ED
[2023-04-05 15:34] LABS: Troponin I 0.03 ng/ml (0.00-0.034)
--- NOTE | 2023-04-05 15:38 | PC.NURSE ---
called office to speak with Fide at 3:22 about consult. she told me she would call back. never recieved a call back
[2023-04-05 15:40] LABS: Microscopic, Urine URINE MICROSCOPIC (MICROSCOPIC)
[2023-04-05 15:42] LABS: Appearance,Urine CLEAR (Clear); Bilirubin,Urine Negative (Negative); Blood, Urine TRACE-I (Negative); Color,Urine YELLOW (Yellow); Glucose,Urine (UA) Negative (Negative); Ketones,Urine Negative (Negative); Leukocyte Esterase,Urine Negative (Negative); Nitrate,Urine Negative (Negative); Protein,Urine 3+ (Negative); Urobilinogen,Urine 0.2 EU/dl (0.2)
[2023-04-05 15:56] LABS: RBC,Urine Occasional #/hpf (0-3); WBC,Urine Occasional #/hpf (0-3)
[2023-04-05 15:57] LABS: Bacteria,Urine Trace /lpf
--- NOTE | 2023-04-05 17:36 | PC.NURSE ---
pt a&o x4 but very [place]. currently on 5l nc. wheezes heard base of rt lung. phonchi and wheezes heard t/o lt lung. ble +2 non pitting edema with scatted scabs and both feel scaly. dexcom on LLQ. pts sputum specimen appeared bloody. pt states he is suppose to go for surgery on his lungs at a different hospital where they stick the tube down your throat to take a biopsy . pt states he will use his walker at home to go to br. pt very weak at this moment. bbb noted on tele. cb and personal items within reach.
--- NOTE | 2023-04-05 18:16 | EXP.HP ---
History of Present Illness *Admission Date: 04/05/23 *Reason for visit:: Left shoulder pain *History of present illness: Patient is a 77-year-old male with past medical history of COPD diabetes mellitus CHF, GERD hypertension hyperlipidemia who presented to hospital due to left-sided shoulder pain. He also complained about vomiting, nonbloody. Patient otherwise denied shortness of breath active chest pain diarrhea constipation dysuria. On my evaluation, patient appears comfortable in the bed. [facility] Disclaimer: The information contained in this section may have been updated after the patient was seen, as this information can be updated by other users. Medical History Allergies Arthritis Cataract Cellulitis Congestive heart failure COPD (chronic obstructive pulmonary disease) Diabetes mellitus, type 2 Edema History of cataract History of COVID-19 History of gastroesophageal reflux (GERD) History of stroke Hyperlipidemia Hypertension Pneumonia Skin cancer Sleep apnea Surgical History History of cholecystectomy History of colonoscopy History of knee replacement History of left hip replacement Family History Other No significant family history Social History Smoking Status: Former smoker alcohol intake: former current occupational status: retired Travel in the last 8 weeks: None household members: spouse housing: house caffeine: Yes Review of Systems Review of Systems Review of systems:: pertinent systems reviewed and negative unless documented below Constitutional Constitutional: Denies headache(s) and Denies weakness ENT Ears, Nose, Mouth, and Throat: Denies dizziness and Denies headache(s) *Musculoskeletal Musculoskeletal: Denies numbness and Denies tingling *Neurologic Neurologic: Denies dizziness, Denies headache(s), Denies numbness, Denies tingling and Denies weakness Meds Home Medications and Allergies Home Medications Medication Instructions Recorded Confirmed Type allopurinol 100 mg tablet 100 mg PO DAILY Gout 10/07/20 04/05/23 History ergocalciferol (vitamin D2) 1,250 50,000 unit PO WEEKLY Supplement 10/07/20 04/05/23 History mcg (50,000 unit) capsule insulin aspart U-100 100 unit/mL 10 units SQ TID Diabetes 10/07/20 04/05/23 History (3 mL) subcutaneous pen omeprazole 20 mg capsule,delayed 20 mg PO DAILY Acid Reflux 10/07/20 04/05/23 History release aspirin 81 mg chewable tablet 81 mg PO DAILY Heart Health 01/04/22 04/05/23 History atorvastatin 40 mg tablet 40 mg PO HS Cholesterol 01/04/22 04/05/23 History montelukast 10 mg tablet 10 mg PO PM Allergy Symptoms 01/04/22 04/05/23 History potassium chloride 10 mEq 10 meq PO DAILY Supplement 01/04/22 04/05/23 History tablet,extended release pregabalin 25 mg capsule 25 mg PO TID Pain 01/04/22 04/05/23 History diltiazem HCl 120 mg 120 mg PO DAILY Heart Rate 04/05/23 04/05/23 History capsule,extended release 24 hr fluticasone fur. 100 mcg-umeclid 1 inh inhalation DAILY Breathing 04/05/23 04/05/23 History 62.5 mcg-vilant 25 mcg Problems inhalat.powder (Trelegy Ellipta) hydralazine 50 mg tablet 50 mg PO TID High Blood Pressure 04/05/23 04/05/23 History insulin degludec 200 unit/mL (3 60 unit SQ BID Diabetes 04/05/23 04/05/23 History mL) subcutaneous pen (Tresiba FlexTouch U-200 insulin) levothyroxine 50 mcg tablet 50 mcg PO DAILY Thyroid 04/05/23 04/05/23 History propranolol 80 mg capsule,24 80 mg PO DAILY High Blood Pressure 04/05/23 04/05/23 History hr,extended release torsemide 20 mg tablet 20 mg PO BID Fluid 04/05/23 04/05/23 History New Prescriptions to Start Prescriptions: Allergies Allergy/AdvReac Type Severity Reaction Status Date / Time latex [LATEX] Allergy Unknown Unknown Verifie
[2023-04-05 18:51] LABS: Troponin I 0.02 ng/ml (0.00-0.034)
[2023-04-05 19:47] LABS: Procalcitonin 1.41 ng/mL (0.0-2.0)
[2023-04-05 20:30] LABS: POC Glucose,Bedside 326 (70-110)
[2023-04-06] VITALS (9 sets, daily range): BP systolic 157–184; BP diastolic 74–94; PULSE 60–71; RESP 18–21; TEMP 36.4–36.6; O2SAT 94–98; BMI 40.1
[2023-04-06 00:48] LABS: Troponin I 0.02 ng/ml (0.00-0.034)
--- NOTE | 2023-04-06 03:51 | PC.NURSE ---
Patient remained on 5LNC as oxygen sats remained 89-90% during shift. IV antibiotics given. Fine crackles noted in bilateral bases while diminished in rest of lobes. VS stable.
[2023-04-06 05:42] LABS: POC Glucose,Bedside 256 (70-110)
[2023-04-06 08:41] LABS: Basophils % 0.2 % (0.1-2.0); Chloride 96 mmol/L (98-107); Eosinophils # 0.2 K/mm3 (0.0-0.4); Hematocrit 35.4 % (42.0-52.0); Hemoglobin 11.7 g/dL (14.1-18.0); Lymphocytes % 4.3 % (10-50); Mean Corpuscular HGB Conc 33.1 g/dL (31.8-35.4); Mean Corpuscular Hemoglobin 28.4 pg (27.0-31.2); Mean Platelet Volume 7.9 fl (7.4-10.4); Monocytes # 0.7 K/mm3 (0.1-1.0); Monocytes % 3.2 % (1.7-9.3); Neutrophils # 20.7 K/mm3 (1.8-7.8); Neutrophils % 91.5 % (37.0-80.0); Platelet Count 219 K/mm3 (142-424); Potassium 4.6 mmoL/L (3.5-5.1); Red Blood Count 4.12 M/mm3 (4.60-6.20); Red Cell Distribution Width 16.8 % (11.5-17.5); Sodium 134 mmol/L (136-145); White Blood Count 22.6 K/mm3 (4.8-10.8)
[2023-04-06 08:44] LABS: Anion Gap 12.6 mEq/L (5-15); Blood Urea Nitrogen 60 mg/dl (9-20); Carbon Dioxide 30 mmol/L (22.0-30.0); Creatinine Clearance Estimated 55 mL/min (50-200); Estimated Glomerular Filt Rate 29 ml/min (>60); GFR (African American) 35 ML/MIN (>60); MANUAL DIFFERENTIAL MANUAL DIFFERENTIAL (MANUAL DIFF)
[2023-04-06 08:45] LABS: Calcium 8.6 mg/dl (8.4-10.2); Glucose 250 mg/dl (74-100)
[2023-04-06 09:01] LABS: Lymphocytes % 5 % (10-50); Monocytes % 5 % (2-9); Neutrophils % 90 % (42-76); Platelet Estimate Normal; RBC Morphology Normal; Total Cells Counted 100
[2023-04-06 11:00] LABS: POC Glucose,Bedside 242 (70-110)
--- NOTE | 2023-04-06 15:56 | EXP.PN ---
Subjective *Date: 04/06/23 *Time: 15:56 Exam Data for Last 24 hours Vital signs and Labs for Last 24 Hours: Temp Pulse Resp BP Pulse Ox O2 Del Method O2 Flow Rate 97.7 F 62 20 184/94 H 94 L Nasal Cannula 3 04/06/23 12:00 04/06/23 12:00 04/06/23 12:00 04/06/23 12:00 04/06/23 12:00 04/06/23 14:35 04/06/23 14:35 Laboratory Results - last 24 hr 04/05/23 12:43: Urine RBC Occasional, Urine WBC Occasional, Ur Squamous Epith Cells 3-5, Urine Bacteria Trace 04/05/23 18:25: Troponin I 0.02, Procalcitonin 1.41 04/05/23 20:22: POC Glucose 326 H* 04/06/23 00:20: Troponin I 0.02 04/06/23 05:34: POC Glucose 256 H 04/06/23 08:31: WBC 22.6 H*, RBC 4.12 L, Hgb 11.7 L, Hct 35.4 L, MCV 86.0, MCH 28.4, MCHC 33.1, RDW 16.8, Plt Count 219, MPV 7.9, Neut % (Auto) 91.5 H, Lymph % (Auto) 4.3 L, [place] % (Auto) 3.2, Eos % (Auto) 1.0, Baso % (Auto) 0.2, Neut # (Auto) 20.7 H, Lymph # (Auto) 1.0, [place] # (Auto) 0.7, Eos # (Auto) 0.2, Baso # (Auto) 0.0, Total Counted 100, Neutrophils % (Manual) 90 H, Lymphocytes % (Manual) 5 L, Monocytes % (Manual) 5, Platelet Estimate Normal, RBC Morphology Normal, Sodium 134 L, Potassium 4.6, Chloride 96 L, Carbon Dioxide 30, Anion Gap 12.6, BUN 60 H, Creatinine 2.20 H, Estimated Creat Clear 55, Estimated GFR 29 L, Est GFR ( Amer) 35 L, Glucose 250 H, Calcium 8.6 04/06/23 10:41: POC Glucose 242 H I & O for Last 24 hours: Intake & Output 04/03/23 04/04/23 04/05/23 11/04/23 23:59 23:59 23:59 23:59 Intake Total 1590 / 1640 950 / 950 Output Total 600 / 600 1600 / 1600 Balance 990 / 1040 -650 / -650 Weight 132.903 kg 134.462 kg Assessment and Plan *Assessment and plan (1) Acute on chronic combined systolic (congestive) and diastolic (congestive) heart failure: Status: Acute Category: Medical Code(s): I50.43 - Acute on chronic combined systolic (congestive) and diastolic (congestive) heart failure (2) Acute pain of left shoulder: Status: Acute Category: Medical Code(s): M25.512 - Pain in left shoulder (3) Elevated troponin: Status: Acute Category: Medical Code(s): R79.89 - Other specified abnormal findings of blood chemistry (4) Pneumonia: Status: Acute Qualifiers: Laterality: left Lung location: lower lobe of lung Pneumonia type: due to unspecified organism Qualified Code(s): J18.9 - Pneumonia, unspecified organism Category: Medical Code(s): J18.9 - Pneumonia, unspecified organism Plan Patient is a 77-year-old male with past medical history of COPD diabetes mellitus CHF, GERD hypertension hyperlipidemia who presented to hospital due to left-sided shoulder pain. He also complained about vomiting, nonbloody. Patient otherwise denied shortness of breath active chest pain diarrhea constipation dysuria. On my evaluation, patient appears comfortable in the bed. Assessment Vomiting, left-sided shoulder pain-rule out ACS Right lower lobe opacity concerning for pneumonia COPD Diabetes mellitus CHFpEF GERD Hypertension Hyperlipidemia Plan Monitor troponin - stable, no active CP Monitor on cardiac telemetry left shoulder xray - negative for acute pathology Cardiology has been consulted from the emergency department, recommended echocardiogram which has been ordered Start empirical antibiotics with vancomycin, cefepime - continue today procalcitonin - WNL, blood cultures - ngtd Insulin sliding scale Resume home medications including aspirin, statin, Cardizem, hydralazine, torsemide DVT prophylaxis-on heparin
[2023-04-06 16:38] LABS: POC Glucose,Bedside 317 (70-110)
--- NOTE | 2023-04-06 16:47 | PC.NURSE ---
A&OX4. TOLERATING 3LNC WELL, WILL ATTEMPT TO WEAN. PT IS VERY [place]. HAS REMAINED IN BED THUS FAR THIS SHIFT. REDNESS AND EDEMA NOTED TO BLE. PT HAS HAD NO C/O THUS FAR THIS SHIFT. RESTING INTERMITTENTLY. VSS.
[2023-04-06 20:14] LABS: POC Glucose,Bedside 307 (70-110)
[2023-04-07] VITALS (10 sets, daily range): BP systolic 121–168; BP diastolic 47–91; PULSE 60–86; RESP 18–20; TEMP 36.5–37.1; O2SAT 91–95; BMI 40.2
[2023-04-07 06:45] LABS: POC Glucose,Bedside 178 (70-110)
[2023-04-07 07:37] LABS: Basophils # 0.1 K/mm3 (0-0.2); Basophils % 0.4 % (0.1-2.0); Eosinophils # 0.2 K/mm3 (0.0-0.4); Eosinophils % 1.2 % (0.1-12.0); Hematocrit 35.4 % (42.0-52.0); Hemoglobin 11.8 g/dL (14.1-18.0); Lymphocytes # 1.3 K/mm3 (0.7-4.5); Lymphocytes % 8.7 % (10-50); Mean Corpuscular HGB Conc 33.5 g/dL (31.8-35.4); Mean Corpuscular Hemoglobin 28.8 pg (27.0-31.2); Mean Corpuscular Volume 85.9 fl (80-94); Mean Platelet Volume 8.1 fl (7.4-10.4); Monocytes # 0.9 K/mm3 (0.1-1.0); Monocytes % 5.6 % (1.7-9.3); Neutrophils # 12.8 K/mm3 (1.8-7.8); Platelet Count 207 K/mm3 (142-424); Red Blood Count 4.12 M/mm3 (4.60-6.20); Red Cell Distribution Width 16.7 % (11.5-17.5); White Blood Count 15.3 K/mm3 (4.8-10.8)
[2023-04-07 07:39] LABS: MANUAL DIFFERENTIAL MANUAL DIFFERENTIAL (MANUAL DIFF)
[2023-04-07 07:45] LABS: Anion Gap 13.2 mEq/L (5-15); Blood Urea Nitrogen 68 mg/dl (9-20); Calcium 8.5 mg/dl (8.4-10.2); Carbon Dioxide 31 mmol/L (22.0-30.0); Chloride 97 mmol/L (98-107); Creatinine Clearance Estimated 47 mL/min (50-200); Estimated Glomerular Filt Rate 24 ml/min (>60); GFR (African American) 29 ML/MIN (>60); Glucose 177 mg/dl (74-100); Potassium 4.2 mmoL/L (3.5-5.1); Sodium 137 mmol/L (136-145)
[2023-04-07 09:10] LABS: Eosinophils % 3 % (0-3); Lymphocytes % 8 % (10-50); Monocytes % 5 % (2-9); Neutrophils % 84 % (42-76); Platelet Estimate Normal; RBC Morphology Normal; Total Cells Counted 100
--- NOTE | 2023-04-07 10:48 | HMH.PTEV ---
Physical Therapy Evaluation Rehab PT IP Evaluation Start: 04/06/23 11:06 Freq: ONCE Status: Active Protocol: Document 04/07/23 10:43 JUANITA (Rec: 04/07/23 10:48 JUANITA [id number]) Subjective/History History History 77 yowm adm to [facility] with PNA and sepsis. He has PMH of COPD , DM, CHF, HLD, HTN. He reports he live with his , no JOSÉ the home, he uses a RW for all mobility at baseline and has hospital bed at home already. Subjective Subjective Currently he has no c/o. He reports feeling better today and is agreeable to mobility assessment. New diagnosis of cancer in past 12 No months? Rehab PT IP Eval Objective Appearance Patient Behavior Appropriate Patient Orientation Person,Place,Time Difficulty following instructions none Speech Pattern Clear Ambulation Patient Able to Ambulate Yes Ambulation Observation IP General Gait Pattern Observation Wide Based Gait,Shuffling Step Ambulation Distance (feet) 15 Ambulation Assistive Device Rolling Walker Ambulation Ability Contact Guard/Hand Hold Balance Ability to Arise Able, uses arms to help Sitting Balance Steady, safe Standing Balance Steady, wide stance Dynamic Sitting Balance Ability Good Dynamic Standing Balance Ability Fair Transfers Bed Transfer Ability Minimal x 1 (25% assist) Chair Transfer Ability Contact Guard/Hand Hold Sit to Stand Bed Transfer Ability Contact Guard/Hand Hold Sit to Stand Chair Transfer Ability Contact Guard/Hand Hold ROM All Extremities PT ROM Status WFL MMT All Extremities PT MMT WFL Rehab PT IP prob,goals,plan Problems Date of Evaluation: 04/07/23 PT IP Problems Bed Mobility,Transfers,Gait Rehab Potential Rehab Potential Good Plan PT Intervention Plan Bed Mobility,Transfers,Gait, Therapeutic Exercise PT Plan Frequency Daily Duration LOS Discharge Goals Bed Transfer Ability Contact Guard/Hand Hold Sit to Stand Chair Transfer Ability Supervision/Stand by Ambulation Assistive Device Rolling Walker Ambulation Distance (feet) 20 Discharge Plan PT Discharge Plan Pt requires verbal cues for safety durign all transfers and ambulation, but this
--- NOTE | 2023-04-07 11:02 | EXP.PN ---
Subjective *Date: 04/07/23 *Time: 11:02 Interval history: Patient was seen and evaluated at the bedside. He has wheezing this morning, denies chest pain, shortness of breath, nausea, vomiting, abdominal pain. Patient does not have any complaints at this time. feels better overall Exam Data for Last 24 hours Vital signs and Labs for Last 24 Hours: Temp Pulse Resp BP Pulse Ox O2 Del Method O2 Flow Rate 98.4 F 63 20 130/78 94 L Nasal Cannula 2 04/07/23 08:00 04/07/23 08:00 04/07/23 08:00 04/07/23 08:00 04/07/23 08:00 04/07/23 10:41 04/07/23 10:41 Laboratory Results - last 24 hr 04/06/23 16:24: POC Glucose 317 H* 04/06/23 20:04: POC Glucose 307 H* 04/07/23 06:37: POC Glucose 178 H 04/07/23 07:10: WBC 15.3 H D, RBC 4.12 L, Hgb 11.8 L, Hct 35.4 L, MCV 85.9, MCH 28.8, MCHC 33.5, RDW 16.7, Plt Count 207, MPV 8.1, Neut % (Auto) 84.0 H, Lymph % (Auto) 8.7 L, Harvey % (Auto) 5.6, Eos % (Auto) 1.2, Baso % (Auto) 0.4, Neut # (Auto) 12.8 H, Lymph # (Auto) 1.3, Harvey # (Auto) 0.9, Eos # (Auto) 0.2, Baso # (Auto) 0.1, Total Counted 100, Neutrophils % (Manual) 84 H, Lymphocytes % (Manual) 8 L, Monocytes % (Manual) 5, Eosinophils % (Manual) 3, Platelet Estimate Normal, RBC Morphology Normal, Sodium 137, Potassium 4.2, Chloride 97 L, Carbon Dioxide 31 H, Anion Gap 13.2, BUN 68 H, Creatinine 2.60 H, Estimated Creat Clear 47, Estimated GFR 24 L, Est GFR ( Amer) 29 L, Glucose 177 H D, Calcium 8.5 I & O for Last 24 hours: Intake & Output 04/04/23 04/05/23 04/06/23 04/07/23 23:59 23:59 23:59 22:59 Intake Total 1590 / 1640 1370 / 1370 360 / 360 Output Total 600 / 600 2550 / 2550 590 / 590 Balance 990 / 1040 -1180 / -1180 -230 / -230 Weight 132.903 kg 134.462 kg 134.83 kg Constitutional Constitutional: no acute distress *Routine HEENT Exam Head: Present normocephalic Eye: Present EOMI and PERRL ENT: Present mucous membranes moist *Routine Neck Exam Neck: Present supple; Absent lymphadenopathy *Routine Respiratory Exam Respiratory: Present wheezes *Routine Cardiovascular Exam Cardiovascular: Present RRR *Routine Abdominal Exam Abdominal: Present soft and normoactive bowel sounds; Absent tenderness *Routine Extremities Exam Extremities: Absent cyanosis, clubbing or edema *Routine Skin Exam Skin: Present warm; Absent rash *Routine Neurological Exam Neurological: Present alert and oriented X3 Assessment and Plan *Assessment and plan (1) Acute on chronic combined systolic (congestive) and diastolic (congestive) heart failure: Status: Acute Category: Medical Code(s): I50.43 - Acute on chronic combined systolic (congestive) and diastolic (congestive) heart failure (2) Acute pain of left shoulder: Status: Acute Category: Medical Code(s): M25.512 - Pain in left shoulder (3) Elevated troponin: Status: Acute Category: Medical Code(s): R79.89 - Other specified abnormal findings of blood chemistry (4) Pneumonia: Status: Acute Qualifiers: Laterality: left Lung location: lower lobe of lung Pneumonia type: due to unspecified organism Qualified Code(s): J18.9 - Pneumonia, unspecified organism Category: Medical Code(s): J18.9 - Pneumonia, unspecified organism Plan Patient is a 77-year-old male with past medical history of COPD diabetes mellitus CHF, GERD hypertension hyperlipidemia who presented to hospital due to left-sided shoulder pain. He also complained about vomiting, nonbloody. Patient otherwise denied shortness of breath active chest pain diarrhea constipation dysuria. On my evaluation, patient appears comfortable in the bed. Assessment Vomiting, left-sided shoulder pain-rule out ACS Right lower lobe opacity concerning for pneumonia JOSE COPD Diabetes mellitus CHFpEF GERD Hypertension Hyperlipidemia Plan Monitor troponin - stable, no active CP, ACS rules out, Echo reviewed - no wall motion abnormality, LVEF
[2023-04-07 11:03] LABS: POC Glucose,Bedside 281 (70-110)
[2023-04-07 16:33] LABS: POC Glucose,Bedside 244 (70-110)
--- NOTE | 2023-04-07 17:09 | PC.NURSE ---
PT A&OX4. TOLERATING 2LNC WELL. HAS BEEN UP TO THE CHAIR THIS SHIFT. AMBULATES WELL WITH WALKER AND X1 ASSISTANCE. PT HAS HAD NO NEEDS OR C/O THUS FAR. VSS.
[2023-04-07 20:16] LABS: POC Glucose,Bedside 241 (70-110)
[2023-04-08] VITALS (10 sets, daily range): BP systolic 140–158; BP diastolic 69–83; PULSE 61–73; RESP 18–20; TEMP 36.1–37.7; O2SAT 92–94; BMI 40.6
--- NOTE | 2023-04-08 05:43 | PC.NURSE ---
pt remains on 2l/nc, sat up in chair through the night, pt assist of 2 with walker, weak
[2023-04-08 06:06] LABS: POC Glucose,Bedside 157 (70-110)
[2023-04-08 07:03] LABS: Basophils % 0.4 % (0.1-2.0); Eosinophils # 0.3 K/mm3 (0.0-0.4); Eosinophils % 2.8 % (0.1-12.0); Hematocrit 33.5 % (42.0-52.0); Hemoglobin 11.3 g/dL (14.1-18.0); Lymphocytes # 1.2 K/mm3 (0.7-4.5); Lymphocytes % 10.7 % (10-50); Mean Corpuscular HGB Conc 33.9 g/dL (31.8-35.4); Mean Corpuscular Hemoglobin 29.1 pg (27.0-31.2); Mean Corpuscular Volume 85.9 fl (80-94); Mean Platelet Volume 8.2 fl (7.4-10.4); Monocytes # 0.7 K/mm3 (0.1-1.0); Monocytes % 6.3 % (1.7-9.3); Neutrophils # 8.9 K/mm3 (1.8-7.8); Neutrophils % 79.8 % (37.0-80.0); Platelet Count 230 K/mm3 (142-424); Red Blood Count 3.89 M/mm3 (4.60-6.20); Red Cell Distribution Width 16.8 % (11.5-17.5); White Blood Count 11.1 K/mm3 (4.8-10.8)
[2023-04-08 07:09] LABS: Anion Gap 12.4 mEq/L (5-15); Blood Urea Nitrogen 66 mg/dl (9-20); Calcium 8.6 mg/dl (8.4-10.2); Carbon Dioxide 32 mmol/L (22.0-30.0); Chloride 99 mmol/L (98-107); Creatinine Clearance Estimated 49 mL/min (50-200); Estimated Glomerular Filt Rate 25 ml/min (>60); GFR (African American) 31 ML/MIN (>60); Glucose 158 mg/dl (74-100); Potassium 4.4 mmoL/L (3.5-5.1); Sodium 139 mmol/L (136-145)
--- NOTE | 2023-04-08 09:36 | HMH.OTEV ---
OT Inpatient Evaluation Rehab OT IP Evaluation Start: 04/06/23 11:06 Freq: ONCE Status: Active Protocol: Document 04/08/23 09:31 THANG (Rec: 04/08/23 09:36 [id number] Rehab OT IP Assessment Subjective History Pt oriented x 2 on arrival. Pt very [place]. Pt is a 77 yowm adm to [facility] with PNA and sepsis . He has PMH of COPD, DM, CHF, HLD, HTN. He reports he live with his , no JOSÉ the home , he uses a RW for all mobility at baseline and has hospital bed at home already. Pt also reports he requires assistance from his with some ADLs such as lower body dressing and showering. He is independent with feeding. Pt is dependent upon his for completion of all IADLs ( cleaning, cooking, laundry, grocery shopping). Subjective I am going to need help getting up. Objective Patient Orientation Person,Birthday Upper Extremity Gross ROM WFL Bed Mobility bed mobility-scooting,bed mobility - supine/sit Assist Level Moderate x 1 (50% assist) Transfer Training Sit/Stand/Step Transfer Assist Level Minimal x 2 (25% assist) Chair Transfer Ability Minimal x 2 (25% assist) Chair Transfer Technique Stand Step Pivot Chair Transfer Assistive Devices Rolling Walker Rehab OT IP prob,goals,plan Problems Date of Evaluation: 04/08/23 OT IP Problems Bed Mobility,Transfers,Balance ,Self care,Safety Rehab Potential Rehab Potential Good Equipment Needs Assistive Devices Rolling / Wheeled Walker Plan OT intervention Plan Bed Mobility,Transfers,Balance ,Self care,Safety,Therapeutic Exercise OT Plan Frequency BID Duration LOS Discharge Goals Bed Mobility Ability Assistance x1 Sit to Stand Chair Transfer Ability Minimal x 1 (25% assist) Chair Transfer Ability Minimal x 1 (25% assist) Chair Transfer Technique Sit to/from Ambulatory Chair Transfer Assistive Devices Rolling Walker Feeding Ability Assist with Tray Set Up Lower Body Dressing Ability Assistance X1 Upper Body Dressing Ability
--- NOTE | 2023-04-08 09:55 | PC.NURSE ---
Nimisha 60 units verified by Mignon.
[2023-04-08 12:10] LABS: POC Glucose,Bedside 171 (70-110)
--- NOTE | 2023-04-08 12:10 | EXP.CARD.CON ---
History of Present Illness History of Present Illness Consult date: 04/08/23 Requesting physician: Elissa Edwards Chief complaint: left arm pain History of present illness: This is a 77-year-old white gentleman who presented to the emergency department with complaints of the left shoulder pain. He has a known history of hypertension, hyperlipidemia, COPD, diabetes and CHF. The patient states that he woke up around 1:30 AM on the day of admission with severe pain in his left shoulder. He states that this was an aching pain. He states that it radiated down the entire left arm. He denied any associated chest pain or shortness of breath. He states that the pain was severe and lasted for several hours. He decided to come to the emergency department due to the severe pain. He did rule out for an [place]. His BNP was negative. The patient denies lower extremity edema but on exam he does have lower extremity edema present. The patient also reports having an episode of vomiting prior to arrival to the hospital. He denies any fever, chills, nausea, diarrhea. The patient reports that since being in the hospital being treated for pneumonia his left shoulder pain has resolved. [facility] Disclaimer: The information contained in this section may have been updated after the patient was seen, as this information can be updated by other users. Medical History (Updated 04/08/23 @ 15:12 by Neda Soto APRN) (HFpEF) heart failure with preserved ejection fraction Abdominal aortic aneurysm (AAA) Abnormal electrocardiogram [ECG] [EKG] Allergies Arthritis Cataract Cellulitis Congestive heart failure COPD (chronic obstructive pulmonary disease) Diabetes mellitus, type 2 Edema History of cataract History of COVID-19 History of gastroesophageal reflux (GERD) History of stroke Hyperlipidemia Hypertension Pneumonia Pulmonary hypertension Skin cancer Sleep apnea Stenosis of carotid artery Surgical History History of cholecystectomy History of colonoscopy History of knee replacement History of left hip replacement Family History Other No significant family history Social History Smoking Status: Former smoker alcohol intake: former current occupational status: retired Travel in the last 8 weeks: None household members: spouse housing: house caffeine: Yes Review of Systems Review of Systems Review of systems:: pertinent systems reviewed and negative unless documented below Constitutional Constitutional: Reports system reviewed and no additional complaints, except as documented, Denies headache(s), Reports lethargy and Denies weakness Eyes Eyes: Reports system reviewed and no additional complaints, except as documented ENT Ears, Nose, Mouth, and Throat: Reports system reviewed and no additional complaints, except as documented, Denies dizziness and Denies headache(s) *Cardiovascular Cardiovascular: Reports system reviewed and no additional complaints, except as documented, Denies chest pain and Denies dyspnea *Respiratory Respiratory: Reports system reviewed and no additional complaints, except as documented and Denies dyspnea *Gastrointestinal Gastrointestinal: Reports system reviewed and no additional complaints, except as documented *Genitourinary Genitourinary: Reports system reviewed and no additional complaints, except as documented *Musculoskeletal Musculoskeletal: Reports system reviewed and no additional complaints, except as documented, Reports arthralgias (Left shoulder pain), Denies numbness and Denies tingling Integumentary/Breasts Skin/Breast: Reports system reviewed and no additional complaints, except as documented *Neurologic Neurologic: Reports system reviewed and no additional complaints, except as documented, Denies dizziness, Denies headache(s), Denies numbness, De
[2023-04-08 14:40] LABS: Chloride 99 mmol/L (98-107); Potassium 4.3 mmoL/L (3.5-5.1); Sodium 138 mmol/L (136-145)
[2023-04-08 14:43] LABS: Anion Gap 12.3 mEq/L (5-15); Blood Urea Nitrogen 67 mg/dl (9-20); Calcium 8.2 mg/dl (8.4-10.2); Carbon Dioxide 31 mmol/L (22.0-30.0); Creatinine Clearance Estimated 53 mL/min (50-200); Estimated Glomerular Filt Rate 28 ml/min (>60); GFR (African American) 34 ML/MIN (>60); Glucose 222 mg/dl (74-100)
--- NOTE | 2023-04-08 15:38 | EXP.ACUTE.PN ---
Subjective *Date: 04/08/23 *Time: 15:38 Interval history: Patient feeling better however still requiring 3 L nasal cannula oxygen. States he wears oxygen intermittently at home sometimes all day sometimes not at all. Baseline is 2 L. No nausea or vomiting. No chest pain. Cough nonproductive. Ambulating independently. Medical Exam Vital signs and Labs for Last 24 Hours: Vital Signs Temp Pulse Pulse Resp BP Pulse Ox O2 Del Method 04/08/23 15:06 98.3 F 64 18 146/72 H 94 L Nasal Cannula 04/08/23 14:34 70 04/08/23 14:34 Nasal Cannula 04/08/23 13:27 Room Air 04/08/23 11:21 98.4 F 61 18 154/75 H 94 L Nasal Cannula 04/08/23 11:14 Room Air 04/08/23 09:00 Nasal Cannula 04/08/23 08:00 Nasal Cannula 04/08/23 07:44 99.8 F H 71 20 140/70 93 L Nasal Cannula 04/08/23 07:36 Nasal Cannula 04/08/23 07:00 Nasal Cannula 04/08/23 06:28 94 L Nasal Cannula 04/08/23 05:00 Nasal Cannula 04/08/23 04:00 97.0 F L 71 18 157/69 H 92 L Nasal Cannula 04/08/23 03:00 Nasal Cannula 04/08/23 00:00 99.4 F 73 18 155/74 H 94 L Nasal Cannula 04/08/23 01:00 Nasal Cannula 04/07/23 23:00 Nasal Cannula 04/07/23 21:00 Nasal Cannula 04/07/23 22:32 92 L Nasal Cannula 04/07/23 20:00 98.8 F 74 18 123/69 91 L Nasal Cannula 04/07/23 18:32 Nasal Cannula 04/07/23 17:34 Nasal Cannula 04/07/23 16:35 Nasal Cannula 04/07/23 16:00 94 L Nasal Cannula O2 Flow Rate FiO2 04/08/23 15:06 3 04/08/23 14:34 04/08/23 14:34 2 04/08/23 13:27 04/08/23 11:21 3 04/08/23 11:14 04/08/23 09:00 2 04/08/23 08:00 2 04/08/23 07:44 3 04/08/23 07:36 2 04/08/23 07:00 2 04/08/23 06:28 3 04/08/23 05:00 2 04/08/23 04:00 2 04/08/23 03:00 2 04/08/23 00:00 2.5 04/08/23 01:00 2 04/07/23 23:00 2 04/07/23 21:00 2 04/07/23 22:32 2 04/07/23 20:00 2 04/07/23 18:32 2 04/07/23 17:34 2 28 04/07/23 16:35 2 04/07/23 16:00 2 Intake and Output 04/07/23 04/08/23 04/08/23 23:59 07:59 15:59 Intake Total 570 / 1410 450 / 1490 1040 / 1490 Output Total 850 / 2070 500 / 900 400 / 900 Balance -280 / -660 -50 / 590 640 / 590 Intake: Intake, Oral Amount 270 / 1110 450 / 990 540 / 990 Intake, Total IV Amount 300 / 300 500 / 500 Lactated Ringers 1000ML 500 ml 500 / 500 @ 100 mls/hr IV .Q5H ABHISHEK Rx#: [id number] Piperacillin/Tazo 3.375 gm In 0 50 / 50 .9 % Sodium Chloride 50 ml @ 100 mls/hr IV Q6H ABHISHEK Rx#: [id number] Vancomycin HCl 2,000 mg In 0.9 250 / 250 % Sodium Chloride 250 ml @ 125 mls/hr IV Q24H ABHISHEK Rx#:[id number] Output: Output, Urine Amount 850 / 2070 500 / 900 400 / 900 Other: Number of Unmeasured Voids 0 1 1 Weight 134.83 kg 136.123 kg Patient Weight 04/08/23 23:59 Weight 136.123 kg Laboratory Results - last 24 hr 04/07/23 16:13: POC Glucose 244 H 04/07/23 20:05: POC Glucose 241 H 04/08/23 05:59: POC Glucose 157 H 04/08/23 06:22: WBC 11.1 H D, RBC 3.89 L, Hgb 11.3 L, Hct 33.5 L, MCV 85.9, MCH 29.1, MCHC 33.9, RDW 16.8, Plt Count 230, MPV 8.2, Neut % (Auto) 79.8, Lymph % (Auto) 10.7, Otero % (Auto) 6.3, Eos % (Auto) 2.8, Baso % (Auto) 0.4, Neut # (Auto) 8.9 H, Lymph # (Auto) 1.2, Otero # (Auto) 0.7, Eos # (Auto) 0.3, Baso # (Auto) 0.0, Sodium 139, Potassium 4.4, Chloride 99, Carbon Dioxide 32 H, Anion Gap 12.4, BUN 66 H, Creatinine 2.50 H, Estimated Creat Clear 49, Estimated GFR 25 L, Est GFR ( Amer) 31 L, Glucose 158 H, Calcium 8.6 04/08/23 12:01: POC Glucose 171 H 04/08/23 14:10: Sodium 138, Potassium 4.3, Chloride 99, Carbon Dioxide 31 H, Anion Gap 12.3, BUN 67 H, Creatinine 2.30 H, Estimated Creat Clear 53, Estimated GFR 28 L, Est GFR ( Amer) 34 L, Glucose 222 H D, Calcium 8.2 L I & O for Labs for Last 24 Hours: Intake & Output 04/06/23 04/07/23 1
[2023-04-08 17:10] LABS: POC Glucose,Bedside 214 (70-110)
[2023-04-08 20:14] LABS: POC Glucose,Bedside 224 (70-110)
[2023-04-09] VITALS (26 sets, daily range): BP systolic 125–162; BP diastolic 50–92; PULSE 50–88; RESP 16–21; TEMP 36.3–36.9; O2SAT 3–97; BMI 40.6
--- NOTE | 2023-04-09 | CA_ITS ---
APPROVED REPORT Exam: Pharmacologic Technologist: Medina Lopes Ht: 6 ft 0 in Wt: 300 lbs BSA: 2.53 m2 HR: 55 bpm BP: 125/56 mmHg Rhythm: NSR Indications: Left arm pain, Abnormal EKG Medical History Medications: Omeprazole,,,,, Levothyroxine,,,,, Hydralazine,,,,, Aspirin,,,,, Propranolol,,,,, Allopurinol,,,,, Atorvastatin,,,,, INSULIN,,,,, Montelukast,,,,, Vitamin D2,,,,, DilTiazem,,,,, TorSEMIDE,,,,, Stress Test Details Test: LEXISCAN HR Resting HR: 53 bpm Max Heart Rate (APMHR): 144 bpm Max HR Achieved: 62 bpm Target HR (85% APMHR): 122 bpm % of APMHR: 43 Recovery HR: 60 bpm BP Resting BP: 125.0/56.0 mmHg Max BP: 125.0/56.0 mmHg Recovery BP: 120.0/61.0 mmHg ECG Resting ECG: Right bundle branch block Clinical Exercise duration: 04:11 min Highest Stage Achieved: Exercise capacity: 1.0 METs Stress ECG Conclusion Symptoms: None Arrhythmias/Ectopy: None ST-T Changes: No significant ST changes Conclusion: Unremarkable Lexiscan stress test. Myoview images reported separately. Test Summary REST . . . . . . . Resting REST 05:47 . . 53 . 125/ 56 . . Stage 1 . . . . . . . Myoview Injected Stage 1 01:00 . . 55 . . . . Stage 2 01:00 . . 58 . . . . Stage 3 01:00 . . 61 . 103/ 46 . . Stage 4 01:00 . . 61 . . . . Stage 4 01:11 . . 62 . . . Stop exercise at 04:11 RECOVERY 01:00 . . 61 . 106/ 52 . . RECOVERY 02:00 . . 59 . 106/ 52 . . RECOVERY 03:00 . . 60 . 114/ 61 . . RECOVERY 04:00 . . 59 . 114/ 53 . . RECOVERY 05:00 . . 60 . 120/ 61 . . RECOVERY 05:13 . . 60 . 120/ 61 . . Electronically signed by : Fiona Adams MD 04/09/2023 12:17:45
--- NOTE | 2023-04-09 | IR_ITS ---
APPROVED REPORT Patient Location: Inpatient Iron Cutter: LISANDRA Winslow RT (R) PROCEDURES Selective coronary angiogram INDICATION Unstable angina, Abnormal stress test Informed consent was obtained prior to the procedure. COMPLICATIONS None Estimated Blood Loss: Less than 10 ML TECHNIQUE One percent lidocaine used to anesthetize the right anterior aspect of the wrist. The right radial artery was accessed via the Seldinger technique. A 6 Croatian sheath was placed in the right radial artery. 2.5 mg of Verapamil, 800 mcg of nitroglycerin, 1mg Lidocaine and 5000 U Heparin were given through the arterial sheath. The papa catheter was also used to perform left heart catheterization, left ventriculogram and selective coronary angiogram. At the end of the procedure the sheath was removed good hemostasis was achieved using Traclet band, patient was transferred to the postop holding area in stable condition. ANGIOGRAPHIC RESULTS The left main artery Normal The left anterior descending artery Mild proximal and mid vessel 10% diffuse luminal irregularities The circumflex artery Nondominant with mild diffuse 10 to 20% luminal irregularities The right coronary artery Dominant with mild diffuse 10 to 20% luminal irregularities The TSAI ventriculogram reveals Not performed The left ventricular end-diastolic pressure Not measured IMPRESSION Mild nonflow limiting coronary artery disease as described above PLAN 1. Medical management coronary disease 2. Evaluation per primary cardiology team Electronically signed by : Jared Pickens MD 04/09/2023 17:41:50
--- NOTE | 2023-04-09 05:05 | PC.NURSE ---
pt rested well, 24 hr urine started @ 2200. npo after mn for stress test and us of aorta. no voiced complaints through the night
[2023-04-09 06:05] LABS: POC Glucose,Bedside 87 (70-110)
[2023-04-09 06:07] LABS: Basophils % 0.4 % (0.1-2.0); Eosinophils # 0.3 K/mm3 (0.0-0.4); Eosinophils % 3.4 % (0.1-12.0); Hematocrit 32.8 % (42.0-52.0); Lymphocytes # 1.3 K/mm3 (0.7-4.5); Lymphocytes % 13.6 % (10-50); Mean Corpuscular HGB Conc 33.5 g/dL (31.8-35.4); Mean Corpuscular Hemoglobin 29.5 pg (27.0-31.2); Mean Corpuscular Volume 88.1 fl (80-94); Mean Platelet Volume 8.2 fl (7.4-10.4); Monocytes # 0.7 K/mm3 (0.1-1.0); Monocytes % 7.6 % (1.7-9.3); Platelet Count 215 K/mm3 (142-424); Red Blood Count 3.73 M/mm3 (4.60-6.20); Red Cell Distribution Width 16.7 % (11.5-17.5); White Blood Count 9.3 K/mm3 (4.8-10.8)
[2023-04-09 06:58] LABS: Anion Gap 13.5 mEq/L (5-15); Blood Urea Nitrogen 66 mg/dl (9-20); Calcium 8.5 mg/dl (8.4-10.2); Carbon Dioxide 30 mmol/L (22.0-30.0); Chloride 100 mmol/L (98-107); Chol/HDL Ratio 2.8 (1-3.5); Cholesterol 83 mg/dl (140-200); Creatinine Clearance Estimated 48 mL/min (50-200); Estimated Glomerular Filt Rate 25 ml/min (>60); GFR (African American) 31 ML/MIN (>60); Glucose 87 mg/dl (74-100); HDL Cholesterol 30 mg/dl (40-60); Potassium 4.5 mmoL/L (3.5-5.1); Sodium 139 mmol/L (136-145); Triglycerides 70 mg/dl (30-150); VLDL Cholesterol 14 mg/dL (0-40)
--- NOTE | 2023-04-09 07:00 | NM_ITS ---
APPROVED REPORT Exam: Nuclear Stress Test Indication: chest natali..high bp..abn ekg Patient Location: Inpatient Stress Tech: Medina Lopes [facility] Tech:LISANDRA Butler RT(R)(N) Ht: 5 ft 10 in Wt: 205 lbs HR: 53 bpm BP: 125/56 mmHg BSA: 2.11 m2 Rhythm: NSR TID: 1.31 BMI: 29.4 History: chest natali..high bp..abn ekg Procedure: Patient received 0.4 mg of intravenous Lexiscan, resting heart rate 53 bpm, resting blood pressure 125/56 mmHg, with Lexiscan maximum heart rate achieved was 62 bpm which is 85 % of the maximum predicted heart rate and blood pressure was 125/56 mmHg. With Lexiscan, patient denied any complaint of chest pain. The patient was not able to lay on his abdomen for prone images. Cardiac Stress and Resting SPECT Images: Cardiac Stress and Resting SPECT images were obtained using technetium 99m Myoview 30.9 mCi stress and 10.15 mCi at rest. The patient is unable to lie on his abdomen. Therefore, prone stress imaging could not be performed. This may affect the diagnostic interpretation of the study findings. Resting and stress imaging in supine position demonstrate medium sized, moderate, partially reversible perfusion defect in the basal to mid inferior and inferolateral LV huffman. There is increased transient ischemic dilatation ratio (TID 1.31), suggestive of possible multivessel disease or balanced ischemia. Gated imaging demonstrates normal global LV systolic function. There is mild hypokinesis of the basal inferior wall. LVEF is calculated at 54%. Conclusion: Medium sized, moderate, partially reversible perfusion defect in the basal to mid inferior and inferolateral LV huffman. Increased transient ischemic dilatation ratio (TID 1.31), suggestive of possible multivessel disease or balanced ischemia. Gated imaging demonstrates normal global LV systolic function. There is mild hypokinesis of the basal inferior wall. LVEF is calculated at 54%. Electronically signed by : Fiona Adams MD 04/09/2023 12:20:41
--- NOTE | 2023-04-09 07:00 | CA_ITS ---
FINAL REPORT TECHNIQUE: Cardoso scale, color and spectral doppler images of the bilateral carotid arteries were obtained. CLINICAL HISTORY: marco antonio FINDINGS: Peak systolic velocity in the right internal carotid artery is 124 cm/sec. The internal carotid to common carotid artery ratio is 1.3. There is no significant carotid artery stenosis and no significant plaque formation. The right vertebral artery is normal in direction. Peak systolic velocity in the left internal carotid artery is 159 cm/sec. The internal carotid to common carotid artery ratio is 1.7. There is no significant carotid artery stenosis. There is mild to moderate plaque formation in the left common carotid and and internal carotid arteries. The left vertebral artery is normal in direction. IMPRESSION: Less than 50% carotid artery stenosis on the right with no significant plaque. Less than 50% carotid artery stenosis on the left with mild to moderate plaque formation in the CCA and proximal ICA. Reviewed, Interpreted and Dictated by Yvonne Frazier MD Transcribed by Laure Gates Authenticated and . [facility]
[2023-04-09 07:08] LABS: Direct LDL Cholesterol 43.31 mg/dL (100-129)
--- NOTE | 2023-04-09 08:00 | US_ITS ---
FINAL REPORT TECHNIQUE: Ultrasound images of the abdominal aorta were obtained. CLINICAL HISTORY: aaa COMPARISON: None FINDINGS: ULTRASOUND OF THE ABDOMINAL AORTA Difficult exam due to bowel gas. The aorta measures up to 3.19 cm. The bifurcation is normal. IMPRESSION: No evidence of abdominal aortic aneurysm. CT could allow for more precise exam. Reviewed, Interpreted and Dictated by William Pena MD Transcribed by Jannie Alvarado Authenticated and [facility]
--- NOTE | 2023-04-09 11:29 | SW/DCPLANNER ---
Addendum entered by Palak Dodson 04/10/23 11:51: Deepika alarcon/ [facility] stated that services will begin this week for this patient. Addendum entered by Palak Dodson 04/10/23 10:39: The plan for this patient is to discharge home today. Patient information/order will be faxed to [facility]: once reviewed I will follow up w/ Rozina at [facility]. Original Note: I spoke w/ this patient regarding plans once medically stable for discharge. PT/OT evaluated patient and recommended home health services. Patient stated that he has used home health in the past but could not recall the agency and would like to use them again. I spoke w/ Rozina at [facility] and she stated that patient has used their agency in the past. Patient is agreeable to use same agency at discharge. Patient information/order will be faxed to [facility] at time of discharge. Per MD patient will discharge home today.
[2023-04-09 13:01] LABS: Glucose,Random 85 mg/dL (74-100)
--- NOTE | 2023-04-09 13:05 | PC.NURSE ---
Pt. arrived back from his cardiac stress test with a fsbg of 50, juice and pb and crackers given. Fsbg of 61 and more juice and pb and crackers given and now a fsbg of 107.
[2023-04-09 13:16] LABS: POC Glucose,Bedside 61 (70-110)
[2023-04-09 13:16] LABS: POC Glucose,Bedside 50 (70-110)
[2023-04-09 13:16] LABS: POC Glucose,Bedside 107 (70-110)
--- NOTE | 2023-04-09 13:24 | EXP.CARD.PN ---
Subjective Subjective Date: 04/09/23 Time: 12:30 Principal diagnosis: L arm pain, abnormal EKG Interval history: This is a 78-year-old gentleman who presented to the emergency department with left shoulder pain. The patient also had an episode of vomiting just did not feel well. He ruled out for an AL but did have an abnormal EKG. The patient underwent Lexiscan Myoview stress testing today which is abnormal for a medium sized moderate partially reversible perfusion defect in the basal to mid inferior and inferior lateral huffman. There is also increased transient ischemic dilatation suggestive of possible multivessel disease or balanced ischemia. This morning he states his left arm pain has improved. He does have some shortness of breath at times on exertion. This does improve with rest. He denies any chest pain or pressure. He denies any fever, chills, nausea, vomiting, diarrhea, PND orthopnea.. Exam Data for Last 24 hours Vital signs and Labs for Last 24 Hours: Temp Pulse Resp BP Pulse Ox O2 Del Method O2 Flow Rate 98.3 F 88 21 126/54 L 94 L Room Air 3 04/09/23 12:00 04/09/23 12:00 04/09/23 12:00 04/09/23 12:00 04/09/23 12:00 04/09/23 12:45 04/09/23 12:00 FiO2 28 04/07/23 17:34 Laboratory Results - last 24 hr 04/08/23 14:10: Sodium 138, Potassium 4.3, Chloride 99, Carbon Dioxide 31 H, Anion Gap 12.3, BUN 67 H, Creatinine 2.30 H, Estimated Creat Clear 53, Estimated GFR 28 L, Est GFR ( Amer) 34 L, Glucose 222 H D, Calcium 8.2 L 04/08/23 16:50: POC Glucose 214 H 04/08/23 20:06: POC Glucose 224 H 04/09/23 05:40: WBC 9.3, RBC 3.73 L, Hgb 11.0 L, Hct 32.8 L, MCV 88.1, MCH 29.5, MCHC 33.5, RDW 16.7, Plt Count 215, MPV 8.2, Neut % (Auto) 75.0, Lymph % (Auto) 13.6, [place] % (Auto) 7.6, Eos % (Auto) 3.4, Baso % (Auto) 0.4, Neut # (Auto) 7.0, Lymph # (Auto) 1.3, [place] # (Auto) 0.7, Eos # (Auto) 0.3, Baso # (Auto) 0.0, Sodium 139, Potassium 4.5, Chloride 100, Carbon Dioxide 30, Anion Gap 13.5, BUN 66 H, Creatinine 2.50 H, Estimated Creat Clear 48, Estimated GFR 25 L, Est GFR ( Amer) 31 L, Glucose 87 D, Calcium 8.5, Triglycerides 70, Cholesterol 83 L, LDL Cholesterol Direct 43.31 L, VLDL Cholesterol 14, HDL Cholesterol 30 L, Cholesterol/HDL Ratio 2.8 04/09/23 05:50: POC Glucose 87 04/09/23 12:08: POC Glucose 50 L 04/09/23 12:18: Random Glucose 85 04/09/23 12:27: POC Glucose 61 L 04/09/23 13:00: POC Glucose 107 I & O for Last 24 hours: Intake & Output 04/07/23 04/07/23 04/08/23 04/09/23 00:59 23:59 23:59 23:59 Intake Total 2680 / 2680 0 / 0 Output Total 1500 / 1500 300 / 300 Balance 1180 / 1180 -300 / -300 Weight 300 lb 1.6 oz 300 lb 5 oz Microbiology Reports for the Last 24 Hours: Microbiology 04/05/23 10:35 Blood Blood Culture - Preliminary 04/05/23 10:10 Blood Blood Culture - Preliminary 04/06/23 12:54 Sputum - Expectorated Sputum Gram Stain - Final 04/06/23 12:54 Sputum - Expectorated Sputum Sputum Culture - Preliminary Narrative: Lexiscan shows: Medium sized, moderate, partially reversible perfusion defect in the basal to mid inferior and inferolateral LV huffman. Increased transient ischemic dilatation ratio (TID 1.31), suggestive of possible multivessel disease or balanced ischemia. Gated imaging demonstrates normal global LV systolic function. There is mild hypokinesis of the basal inferior wall. LVEF is calculated at 54% Constitutional Constitutional: no acute distress and morbidly obese *Routine HEENT Exam Head: Present normocephalic and atraumatic ENT: Present mucous membranes moist *Routine Neck Exam Neck: Present supple, full ROM and normal carotid upstroke; Absent JVD, carotid bruit or lymphadenopathy *Routine Respiratory Exam Respiratory: Present wheezes (Expiratory wheezes noted), normal respiratory effort and symmetric chest movement *Routine Cardiovascular Exam Cardiovascular: Present RRR, Normal S1 and Normal S2; Absent murmur or gallop *Routine Abdo
[2023-04-09 16:18] LABS: POC Glucose,Bedside 166 (70-110)
--- NOTE | 2023-04-09 18:46 | EXP.ACUTE.PN ---
Subjective *Date: 04/09/23 *Time: 18:49 Interval history: Patient stable on 3L today. Not complaining of any chest pain. Taken for stress test however which showed reversible defect. Plan for left heart cath this afternoon. Today's patient's birthday, requested to go home, informed him that unfortunately he is not stable enough to discharge. No nausea or vomiting. Has had some loose stools through the day. Medical Exam Vital signs and Labs for Last 24 Hours: Vital Signs Temp Pulse Pulse Resp BP Pulse Ox O2 Del Method 04/09/23 18:30 97.6 F 54 L 16 125/56 L 96 Nasal Cannula 04/09/23 18:15 97.6 F 56 L 16 149/63 H 96 Nasal Cannula 04/09/23 18:10 97.6 F 57 L 16 137/68 96 Nasal Cannula 04/09/23 18:05 97.6 F 52 L 16 136/72 96 Nasal Cannula 04/09/23 18:00 97.6 F 55 L 16 143/72 H 96 Nasal Cannula 04/09/23 18:11 Nasal Cannula 04/09/23 16:00 60 04/09/23 16:30 Nasal Cannula 04/09/23 15:10 98 F 57 L 18 140/67 94 L Nasal Cannula 04/09/23 08:00 95 Nasal Cannula 04/09/23 14:36 Nasal Cannula 04/09/23 12:05 60 04/09/23 12:45 Room Air 04/09/23 12:00 98.3 F 88 21 126/54 L 94 L Nasal Cannula 04/09/23 08:00 70 04/09/23 08:00 98.4 F 58 L 20 143/74 H 97 Nasal Cannula 04/09/23 07:00 Nasal Cannula 04/09/23 05:00 Nasal Cannula 04/09/23 06:30 59 L 04/09/23 06:30 59 L 04/09/23 04:00 98.1 F 59 L 20 132/53 L 92 L Nasal Cannula 04/09/23 04:00 60 04/09/23 03:00 Nasal Cannula 04/09/23 01:00 Nasal Cannula 04/09/23 00:00 70 04/09/23 00:00 98.3 F 63 20 129/51 L 95 Nasal Cannula 04/08/23 23:00 Nasal Cannula 04/08/23 21:00 Nasal Cannula 04/08/23 20:00 Nasal Cannula 04/08/23 20:00 70 04/08/23 19:45 98.5 F 69 20 158/83 H 93 L Nasal Cannula O2 Flow Rate 04/09/23 18:30 3 04/09/23 18:15 3 04/09/23 18:10 3 04/09/23 18:05 3 04/09/23 18:00 3 04/09/23 18:11 3.5 04/09/23 16:00 04/09/23 16:30 3 04/09/23 15:10 3 04/09/23 08:00 3 04/09/23 14:36 3 04/09/23 12:05 04/09/23 12:45 04/09/23 12:00 3 04/09/23 08:00 04/09/23 08:00 04/09/23 07:00 2 04/09/23 05:00 2 04/09/23 06:30 04/09/23 06:30 04/09/23 04:00 3 04/09/23 04:00 04/09/23 03:00 3 04/09/23 01:00 3 04/09/23 00:00 04/09/23 00:00 3 04/08/23 23:00 3 04/08/23 21:00 3 04/08/23 20:00 3 04/08/23 20:00 04/08/23 19:45 3 Intake and Output 04/09/23 04/09/23 04/09/23 07:59 15:59 23:59 Intake Total 0 / 0 Output Total 300 / 550 250 / 550 Balance -300 / -550 -250 / -550 Intake: Intake, Oral Amount 0 / 0 Output: Output, Urine Amount 300 / 550 250 / 550 Other: Number of Voids 1 Number of Unmeasured Voids 1 Number of Bowel Movements 4 Weight 136.219 kg Patient Weight 04/09/23 23:59 Weight 136.219 kg Laboratory Results - last 24 hr 04/08/23 20:06: POC Glucose 224 H 04/09/23 05:40: WBC 9.3, RBC 3.73 L, Hgb 11.0 L, Hct 32.8 L, MCV 88.1, MCH 29.5, MCHC 33.5, RDW 16.7, Plt Count 215, MPV 8.2, Neut % (Auto) 75.0, Lymph % (Auto) 13.6, [place] % (Auto) 7.6, Eos % (Auto) 3.4, Baso % (Auto) 0.4, Neut # (Auto) 7.0, Lymph # (Auto) 1.3, [place] # (Auto) 0.7, Eos # (Auto) 0.3, Baso # (Auto) 0.0, Sodium 139, Potassium 4.5, Chloride 100, Carbon Dioxide 30, Anion Gap 13.5, BUN 66 H, Creatinine 2.50 H, Estimated Creat Clear 48, Estimated GFR 25 L, Est GFR ( Amer) 31 L, Glucose 87 D, Calcium 8.5, Triglycerides 70, Cholesterol 83 L, LDL Cholesterol Direct 43.31 L, VLDL Cholesterol 14, HDL Cholesterol 30 L, Cholesterol/HDL Ratio 2.8 04/09/23 05:50: POC Glucose 87 04/09/23 12:08: POC Glucose 50 L 04/09/23 12:18: Random Glucose 85 04/09/23 12:27: POC Glucose 61 L 04/09/23 13:00: POC Glucose 107 04/09/23 16:10: POC Glucose 166 H I & O for Labs for Last 24 Hours: Intake & Output 04/07/23 04/07/2304/08
[2023-04-09 19:54] LABS: POC Glucose,Bedside 136 (70-110)
[2023-04-09 22:55] LABS: Total Volume,Urine 500 mL (250-2400)
[2023-04-09 23:39] LABS: Total Protein 24 Hour,Urine 1400 mg/24 hr (40-90)
[2023-04-10] VITALS: BP 138/59; PULSE 67; RESP 17; TEMP 36.4; O2SAT 92
[2023-04-10 04:00] VITALS: BP 182/87; PULSE 70; PULSE 73; RESP 20; TEMP 36.8; O2SAT 94; BMI 40.9
--- NOTE | 2023-04-10 05:19 | PC.NURSE ---
radial site from heart catherization without hematoma, redness or s/s of infection. prt currently on 3l/nc
[2023-04-10 06:05] VITALS: O2SAT 92
[2023-04-10 06:21] LABS: Basophils % 0.1 % (0.1-2.0); Eosinophils % 0.1 % (0.1-12.0); Hematocrit 34.9 % (42.0-52.0); Hemoglobin 11.4 g/dL (14.1-18.0); Lymphocytes # 0.5 K/mm3 (0.7-4.5); Lymphocytes % 4.4 % (10-50); Mean Corpuscular HGB Conc 32.7 g/dL (31.8-35.4); Mean Corpuscular Hemoglobin 29.1 pg (27.0-31.2); Mean Platelet Volume 8.3 fl (7.4-10.4); Monocytes # 0.3 K/mm3 (0.1-1.0); Monocytes % 2.2 % (1.7-9.3); Neutrophils # 10.7 K/mm3 (1.8-7.8); Neutrophils % 93.3 % (37.0-80.0); Platelet Count 230 K/mm3 (142-424); Red Blood Count 3.92 M/mm3 (4.60-6.20); Red Cell Distribution Width 16.5 % (11.5-17.5); White Blood Count 11.4 K/mm3 (4.8-10.8)
[2023-04-10 06:26] LABS: MANUAL DIFFERENTIAL MANUAL DIFFERENTIAL (MANUAL DIFF)
[2023-04-10 06:30] LABS: Alanine Aminotransferase 44 U/L (12-78); Albumin Level 3.6 g/dl (3.5-5.0); Albumin/Globulin Ratio 1.1 (1.1-1.8); Alkaline Phosphatase 100 U/L (38-126); Anion Gap 15.6 mEq/L (5-15); Aspartate Amino Transferase 41 U/L (17-59); Bilirubin,Total 0.3 mg/dl (0.2-1.3); Blood Urea Nitrogen 75 mg/dl (9-20); Calcium 8.7 mg/dl (8.4-10.2); Carbon Dioxide 29 mmol/L (22.0-30.0); Chloride 96 mmol/L (98-107); Creatinine Clearance Estimated 49 mL/min (50-200); Estimated Glomerular Filt Rate 25 ml/min (>60); GFR (African American) 31 ML/MIN (>60); Globulin 3.3 g/dL (1.3-3.2); Magnesium 2.6 mg/dl (1.6-2.3); Potassium 5.6 mmoL/L (3.5-5.1); Sodium 135 mmol/L (136-145); Total Protein,Serum 6.9 g/dl (6.3-8.2)
[2023-04-10 06:44] LABS: POC Glucose,Bedside 405 (70-110)
[2023-04-10 06:46] LABS: Glucose 419 mg/dl (74-100)
[2023-04-10 07:30] VITALS: BP 181/82; PULSE 75; RESP 20; TEMP 36.6; O2SAT 94
[2023-04-10 07:37] LABS: Lymphocytes % 4 % (10-50); Monocytes % 1 % (2-9); Neutrophils % 95 % (42-76); Platelet Estimate Normal; RBC Morphology Normal; Total Cells Counted 100
[2023-04-10 08:00] VITALS: PULSE 80
--- NOTE | 2023-04-10 10:58 | EXP.CARD.PN ---
Subjective Subjective Date: 04/10/23 Time: 09:00 Principal diagnosis: L arm pain, abnormal EKG Interval history: This is a 78-year-old gentleman who presented to the emergency department for left shoulder pain. He also had an episode of vomiting. The patient underwent Lexiscan Myoview stress testing which was abnormal. He underwent left cardiac catheterization yesterday which showed mild nonocclusive coronary artery disease. This morning the patient is adamant that he wants to go home today. He denies any chest pain or pressure. He states his left arm pain has resolved. He does complain of some shortness of breath at times with exertion. He states that this is mild and chronic for him. He denies any fever, chills, nausea, vomiting, diarrhea, PND or orthopnea. Left cardiac catheterization shows The left main artery Normal The left anterior descending artery Mild proximal and mid vessel 10% diffuse luminal irregularities The circumflex artery Nondominant with mild diffuse 10 to 20% luminal irregularities The right coronary artery Dominant with mild diffuse 10 to 20% luminal irregularities The TSAI ventriculogram reveals Not performed The left ventricular end-diastolic pressure Not measured IMPRESSION Mild nonflow limiting coronary artery disease as described above PLAN 1. Medical management coronary disease 2. Evaluation per primary cardiology team Exam Data for Last 24 hours Vital signs and Labs for Last 24 Hours: Temp Pulse Resp BP Pulse Ox O2 Del Method O2 Flow Rate 97.8 F 80 20 181/82 H 94 L Nasal Cannula 3 04/10/23 07:30 04/10/23 08:00 04/10/23 07:30 04/10/23 07:30 04/10/23 07:30 04/10/23 09:00 04/10/23 09:00 FiO2 28 04/07/23 17:34 Laboratory Results - last 24 hr 04/08/23 22:00: Urine Total Volume 500, Ur Total Protein 24 Hr 1400 H, Urine Total Protein 280.0 H 04/09/23 12:08: POC Glucose 50 L 04/09/23 12:18: Random Glucose 85 04/09/23 12:27: POC Glucose 61 L 04/09/23 13:00: POC Glucose 107 04/09/23 16:10: POC Glucose 166 H 04/09/23 19:43: POC Glucose 136 H 04/10/23 05:57: WBC 11.4 H, RBC 3.92 L, Hgb 11.4 L, Hct 34.9 L, MCV 89.0, MCH 29.1, MCHC 32.7, RDW 16.5, Plt Count 230, MPV 8.3, Neut % (Auto) 93.3 H, Lymph % (Auto) 4.4 L, [place] % (Auto) 2.2, Eos % (Auto) 0.1, Baso % (Auto) 0.1, Neut # (Auto) 10.7 H, Lymph # (Auto) 0.5 L, [place] # (Auto) 0.3, Eos # (Auto) 0.0, Baso # (Auto) 0.0, Total Counted 100, Neutrophils % (Manual) 95 H, Lymphocytes % (Manual) 4 L, Monocytes % (Manual) 1 L, Platelet Estimate Normal, RBC Morphology Normal, Sodium 135 L, Potassium 5.6 H D, Chloride 96 L, Carbon Dioxide 29, Anion Gap 15.6 H, BUN 75 H, Creatinine 2.50 H, Estimated Creat Clear 49, Estimated GFR 25 L, Est GFR ( Amer) 31 L, Glucose 419 H*, Calcium 8.7, Magnesium 2.6 H, Total Bilirubin 0.3, AST 41, ALT 44, Alkaline Phosphatase 100, Total Protein 6.9, Albumin 3.6, Globulin 3.3 H, Albumin/Globulin Ratio 1.1 04/10/23 06:07: POC Glucose 405 H* I & O for Last 24 hours: Intake & Output 04/07/23 04/08/23 04/09/23 04/10/23 23:59 23:59 23:59 23:59 Intake Total 2680 / 2680 0 / 0 270 / 270 Output Total 1500 / 1500 790 / 790 1275 / 1275 Balance 1180 / 1180 -790 / -790 -1005 / -1005 Weight 300 lb 1.6 oz 300 lb 5 oz 302 lb 6 oz Microbiology Reports for the Last 24 Hours: Microbiology 04/06/23 12:54 Sputum - Expectorated Sputum Gram Stain - Final 04/06/23 12:54 Sputum - Expectorated Sputum Sputum Culture - Final 04/05/23 10:35 Blood Blood Culture - Preliminary 04/05/23 10:10 Blood Blood Culture - Preliminary Constitutional Constitutional: no acute distress and morbidly obese *Routine HEENT Exam Head: Present normocephalic and atraumatic ENT: Present mucous membranes moist *Routine Neck Exam Neck: Present supple, full ROM and normal carotid upstroke; Absent JVD, carotid bruit or lymphadenopathy *Routine Respiratory Exam Respiratory: Present wheezes (Expiratory wheezes noted), normal respiratory
--- NOTE | 2023-04-10 11:51 | EXP.DC.SUM ---
General Admission date:: 04/06/23 Discharge date: 04/10/23 HPI HPI HPI: Patient is a 77-year-old male with past medical history of COPD diabetes mellitus CHF, GERD hypertension hyperlipidemia who presented to hospital due to left-sided shoulder pain. He also complained about vomiting, nonbloody. Patient otherwise denied shortness of breath active chest pain diarrhea constipation dysuria. On my evaluation, patient appears comfortable in the bed. Hospital Course Hospital Course Hospital Course: Patient is a 77-year-old male with past medical history of COPD diabetes mellitus CHF, GERD hypertension hyperlipidemia who presented to hospital due to left-sided shoulder pain. He also complained about vomiting, nonbloody. Patient otherwise denied shortness of breath active chest pain diarrhea constipation dysuria. Patient currently being treated for pneumonia, heart failure, JOSE. Patient improved clinically and is back to his baseline oxygen requirement. Will establish with home health, order sent. Meeting criteria for discharge home. Problems addressed during admission as follows: Pneumonia: Acute on chronic hypoxemic respiratory failure: COPD -PSI/port score of 105 on admission, chest imaging with right lower lobe opacification, 6 L oxygen on admission. Able to wean oxygen with diuresis and treatment for pneumonia to 2 L which is his baseline. Completed empiric course of levofloxacin for pneumonia. Given stable oxygen requirement, no further antibiotics at discharge. Recommend continuing home breathing treatments at discharge. Heart failure with preserved ejection fraction Pulmonary hypertension HTN -Cardiology consulted, appreciate their recommendations. Echocardiogram shows normal EF with mildly dilated RV and biatrial dilatation. Stress test performed showing reversible defect on Lexiscan. Taken for left heart cath, mild disease. No stents placed. Recommend continued medical management. Continue diuresis with torsemide 20 mg twice daily. Continue home propranolol 40 mg twice daily. Diltiazem increased to 240 mg daily for hypertension. Also Dralzine 50 mg 3 times a day. Continue aspirin 81 mg daily. Of note ultrasound of AAA obtained, pending at discharge. Carotid ultrasounds obtained showing less than 50% stenosis bilaterally. Hyperlipidemia: Continue statin, goal LDL less than 100 at 43 during admission. JOSE on CKD -Baseline creatinine 1.9-2.0. Creatinine has been stable at 2.5 during admission. Concerned that this may be his new baseline. Making adequate urine. 24-hour urine protein obtained. Results still pending at discharge. Discussed need for nephrology, patient is hesitant to go back to [facility] whom he has seen in [facility] due to cost. Will defer further discussion to PCP given patient's questionably worsening chronic kidney disease. Diabetes mellitus: Sliding scale insulin, fingersticks ACHS during admission. Continue home regimen at discharge and pain Tresiba 60 ice daily. would benefit from further adjustment as an outpatient. Gout: Continue 100 mg allopurinol daily GERD: Continue pantoprazole 40 mg nightly Neuropathy: Continue Lyrica 25 mg 3 times daily Stable for discharge home. Recommend close follow-up with PCP. Spent 35 minutes in discharge counseling with patient and family, documentation, chart review, medication management, and direct care with patient. Exam Data for Last 24 hours Vital signs and Labs for Last 24 Hours: Temp Pulse Resp BP Pulse Ox O2 Del Method O2 Flow Rate 98.1 F 59 L 20 132/53 L 92 L Nasal Cannula 2 04/09/23 04:00 04/09/23 06:30 04/09/23 04:00 04/09/23 04:00 04/09/23 04:00 04/09/23 07:00 04/09/23 07:00 FiO2 28 04/07/23 17:34 Laboratory Results - last 24 hr 04/08/23 12:01: POC Glucose 171 H 04/08/23 14:10: Sodium 138, Potassium 4.3, Chloride 99, Carbon Dioxide 31 H, Anion Gap 12.3, BUN 67 H, Creatinine 2.30 H, Estimated Creat Clear 53,
[2023-04-10 12:00] VITALS: BP 160/96; PULSE 68; RESP 18; TEMP 36.6; O2SAT 98
[2023-04-10 12:05] LABS: POC Glucose,Bedside 351 (70-110)
--- NOTE | 2023-04-11 13:30 | CARE MANAGER ---
Contacted patient related to hospital discharge. He states that he is ok. Therapy from home health has been there to see him. He states he has follow up appointment today with PCP. He denies any questions or concerns. ANA Garcia
[2023-04-12 14:44] LABS: Albumin, U 66.5 % (.); Alpha-1-Globulin, U 1.2 % (.); Alpha-2-Globulin, U 6.9 % (.); Beta Globulin, U 11.5 % (.); M-Spike, % Not Observed % (Not Observed); Protein,Total,Urine 154.5 mg/dL (Not Estab.)
== END 2023-04-10 13:02 | disposition home or self-care (01) | DRG 193 ==
LOC: ER 14:07 → 2ND 14:43
PROVIDERS: Internal Medicine; Internal Medicine Adolescent Medicine; Nurse Practitioner Family; Admitting Provider Internal Medicine; Emergency Provider Emergency Medicine; Visit Provider Internal Medicine
PROC: B2111ZZ Fluoroscopy of Multiple Coronary Arteries using Low Osmolar Contrast (ICD-10-PCS; principal; 2023-04-09 15:30)
DX: J18.9 Pneumonia, unspecified organism (principal); I50.43 Acute on chronic combined systolic (congestive) and diastolic (congestive) heart failure; J96.21 Acute and chronic respiratory failure with hypoxia; J44.0 Chronic obstructive pulmonary disease with (acute) lower respiratory infection; N17.9 Acute kidney failure, unspecified; Z68.41 Body mass index [BMI] 40.0-44.9, adult; I25.110 Atherosclerotic heart disease of native coronary artery with unstable angina pectoris; I13.0 Hypertensive heart and chronic kidney disease with heart failure and stage 1 through stage 4 chronic kidney disease, or unspecified chronic kidney disease; Z86.73 Personal history of transient ischemic attack (TIA), and cerebral infarction without residual deficits; M19.90 Unspecified osteoarthritis, unspecified site; Z87.891 Personal history of nicotine dependence; Z85.828 Personal history of other malignant neoplasm of skin; E78.5 Hyperlipidemia, unspecified; M25.512 Pain in left shoulder; R77.8 Other specified abnormalities of plasma proteins; R11.10 Vomiting, unspecified; Z79.4 Long term (current) use of insulin; I27.20 Pulmonary hypertension, unspecified; I65.29 Occlusion and stenosis of unspecified carotid artery; I71.40 Abdominal aortic aneurysm, without rupture, unspecified; E66.01 Morbid (severe) obesity due to excess calories; M10.9 Gout, unspecified; E11.40 Type 2 diabetes mellitus with diabetic neuropathy, unspecified; E11.22 Type 2 diabetes mellitus with diabetic chronic kidney disease; N18.9 Chronic kidney disease, unspecified; E87.5 Hyperkalemia; K21.9 Gastro-esophageal reflux disease without esophagitis; Z96.659 Presence of unspecified artificial knee joint; Z96.649 Presence of unspecified artificial hip joint
CPT/HCPCS: 36415; 71045; 71260; 73030; 74177; 76770; 78452; 80048; 80053; 80061; 81001; 82803; 82947; 82962; 83605; 83690; 83735; 83880; 84145; 84155; 84156; 84166; 84484; 85007; 85025; 87040; 87070; 87205; 93005; 93017; 93306; 93454; 93880; 94640; 97110; 97163; 97166; 97530; 99152; 99285; A9502; C1725; C1760; C1769; J1644; J2543; J2785; J3370; Q9967

== ENCOUNTER 2023-05-14 10:42 | Observation (INO) | payer MEDICARE, SELFPAY ==
[2023-05-14] VITALS (14 sets, daily range): BP systolic 118–184; BP diastolic 64–84; PULSE 67–87; RESP 18–24; TEMP 36.5–36.7; O2SAT 68–98; BMI 39.3; BMI 40.1
--- NOTE | 2023-05-14 10:47 | XR_ITS ---
FINAL REPORT CLINICAL HISTORY: CP COMPARISON: 04/05/2023 FINDINGS: The heart is mildly enlarged. The mediastinum is within normal limits. There is scarring in the left perihilar region. There is no pleural effusion. There is no pneumothorax. The bony thorax is intact. IMPRESSION: No acute cardiopulmonary process. Reviewed, Interpreted and Dictated by William Pena MD Transcribed by Lavelle Gomez Authenticated and . [facility]
--- NOTE | 2023-05-14 10:58 | PC.NURSE ---
DR. RIVAS AT BEDSIDE
--- NOTE | 2023-05-14 10:58 | PC.NURSE ---
rad at bedside
--- NOTE | 2023-05-14 10:59 | ED_ITS ---
Discharge Plan Disposition Patient Disposition: Admitted Condition: Fair Chief Complaint: Shortness of Breath/Dyspnea Prescriptions Prescriptions: No Action Ozempic 0.25 mg or 0.5 mg (2 mg/3 mL) pen injector 0.25 mg SQ WEEKLY Qty: 3 2RF Rx Instructions: for 4 weeks allopurinol 100 MG tablet 100 mg PO DAILY omeprazole 20 MG capsule,delayed release(DR/EC) 20 mg PO DAILY ergocalciferol (vitamin D2) 50,000 UNIT capsule 50,000 unit PO WEEKLY Patient Comments: TAKE 1 CAPSULE BY MOUTH ONE TIME PER WEEK insulin aspart U-100 100 UNIT/ML insulin pen 10 units SQ TID Patient Comments: SUBCUTANEOUS (INJECT UNDER THE SKIN) 10 UNITS 3 TIMES DAILY (BEFORE MEALS). torsemide 20 mg tablet 20 mg PO BID Patient Comments: TAKE 1 TABLET BY MOUTH 2 TIMES DAILY. levothyroxine 50 mcg tablet 50 mcg PO DAILY Patient Comments: TAKE 1 TABLET BY MOUTH DAILY. TAKE ON EMPTY STOMACH 30-45 MIN SEPARATE FROM OTHER FOOD/MEDICATIONS. Trelegy Ellipta 100-62.5-25 mcg blister with device 1 inh INHALATION DAILY Patient Comments: INHALE 1 PUFF INTO THE LUNGS ONCE DAILY. propranolol 80 mg capsule,extended release 24 hr 80 mg PO DAILY hydralazine 50 mg tablet 50 mg PO TID Patient Comments: TAKE 1 TABLET BY MOUTH 3 TIMES DAILY insulin degludec [Tresiba FlexTouch U-200] 200 unit/mL (3 mL) insulin pen 60 unit SQ BID diltiazem HCl 240 mg capsule,extended release 24 hr 240 mg PO DAILY 30 Days Qty: 30 0RF atorvastatin 40 MG tablet 40 mg PO HS potassium chloride 10 MEQ tablet extended release 10 meq PO DAILY aspirin 81 MG tablet,chewable 81 mg PO DAILY montelukast 10 MG tablet 10 mg PO PM pregabalin 25 MG capsule 25 mg PO TID Referrals Follow up/Referrals: Provider,Referral, MD [Primary Care Provider] - See instructions Clinical Impressions Clinical Impression: COPD (chronic obstructive pulmonary disease) Discharge ED Provider: Magdi Walsh General Adult HPI General Chief complaint: Shortness of Breath/Dyspnea Stated complaint: SOA Time Seen by Provider: 05/14/23 10:47 Mode of Arrival: EMS Source of Information: Patient and EMS Limitations: No Limitations Description of Symptoms (Recalled from ER Triage Doc. by RN): PT BROUGHT VIA EMS FOR COUGH, CONGESTION, LOW O2 SAT. PT WEARS O2 AT 3L/NC. EMS REPORTS SAT 91% ON ARRIVAL. PT DENIES PAIN History of Present Illness HPI narrative: Patient has a PMHx significant for heart failure, COPD emphysema, type 2 di abetes, hyperlipidemia, hypertension, pulmonary hypertension, GOSIA, CAD, carotid artery stenosis, peripheral vascular disease who presents to the ED with complaints of cough, congestion, shortness of breath. Patient notes that for the past week, he has been feeling fatigued, generalized malaise, having shortness of breath cough, congestion, rhinorrhea. Patient notes that overnight, shortness of breath significantly worsened and this morning felt extremely short of breath on his home 3 L nasal cannula. On EMS arrival, the patient was satting 91%. Patient was given a DuoNeb and 125 mg of IV Solu- Medrol. Patient denies any fevers, chills Related Data Home Medications Medication Instructions Recorded Confirmed allopurinol 100 mg tablet 100 mg PO DAILY Gout 10/07/20 04/17/23 ergocalciferol (vitamin D2) 1,250 50,000 unit PO WEEKLY Supplement 10/07/20 04/17/23 mcg (50,000 unit) capsule insulin aspart U-100 100 unit/mL 10 units SQ TID Diabetes 10/07/20 04/17/23 (3 mL) subcutaneous pen omeprazole 20 mg capsule,delayed 20 mg PO DAILY Acid Reflux 10/07/20 04/17/23 release aspirin 81 mg chewable tablet 81 mg PO DAILY Heart Health 01/04/22 04/17/23 atorvastatin 40 mg tablet 40 mg PO HS Cholesterol 01/04/22 04/17/23 montelukast 10 mg tablet 10 mg PO PM Allergy Symptoms 01/04/22 04/17/23 potassium chloride 10 mEq 10 meq PO DAILY Supplement 01/04/22 04/17/23 tablet,extended release pregabalin 25 mg capsule 25 mg PO TID Pain 01/04/22 04/17/23 fluticasone fur. 100 mcg-umeclid 1 inh inhalation DAILY Breathing 04/05/23 04/17/23 62.5 mcg-vilant 25 mcg Problems inhalat.powder (Trelegy Ellipta) hydralazine 50 mg tablet 50 mg PO TID High Blood Pressure 04/05/23 04/17/23 insulin degludec 200 unit/mL (3 60 unit SQ BID Diabetes 04/05/23 04/17/23 mL) subcutaneous pen (Tresiba FlexTouch U-200 insulin) levothyroxine 50 mcg tablet 50 mcg PO DAILY Thyroid 04/05/23 04/17/23 propranolol 80 mg capsule,24 80 mg PO DAILY High Blood Pressure 04/05/23 04/17/23 hr,extended release torsemide 20 mg tablet 20 mg PO BID Fluid 04/05/23 04/17/23 Previous Rx's Medication Instructions Recorded diltiazem HCl 240 mg capsule,24 240 mg PO DAILY 30 days #30 caps 04/10/23 hr,extended release semaglutide 0.25 mg or 0.5 mg (2 0.25 mg (0.368 mL) SQ WEEKLY #3 mL 04/17/23 mg/3 mL) subcutaneous pen injector (Ozempic) Allergies Allergy/AdvReac Type Severity Reaction Status Date / Time latex [LATEX] Allergy Unknown Unknown Verified 04/17/23 14:20 allergy reaction Iodinated Contrast Media Allergy Unknown Verified 04/17/23 14:20 allergy reaction PFSH [facility] Disclaimer: The information contained in this section may have been updated after the patient was seen, as this information can be updated by other users. Medical History (HFpEF) heart failure with preserved ejection fraction Abdominal aortic aneurysm (AAA) Abnormal cardiovascular stress test Abnormal electrocardiogram [ECG] [EKG] Allergies Arthritis Atypical angina CAD in [place] artery Cataract Cellulitis Congestive heart failure COPD (chronic obstructive pulmonary disease) Diabetes mellitus, type 2 Edema History of cataract History of COVID-19 History of gastroesophageal reflux (GERD) History of stroke Hyperkalemia Hyperlipidemia Hypertension Pneumonia Pulmonary hypertension Skin cancer Sleep apnea Stenosis of carotid artery Surgical History History of cholecystectomy History of colonoscopy History of knee replacement History of left hip replacement Family History Other No significant family history Social History Smoking Status: Former smoker alcohol intake: former current occupational status: retired Travel in the last 8 weeks: None household members: spouse housing: house caffeine: Yes ROS Obtained: Yes All systems reviewed & no additional complaints except as documented Physical Exam General General appearance: alert and obese Head Head exam: atraumatic, normocephalic and normal inspection Eye Eye exam: Present normal appearance, PERRL and EOMI; Absent scleral icterus or nystagmus ENT ENT exam: Present normal exam, mucous membranes moist and normal external ear exam Neck Neck exam: Present normal inspection, full ROM and trachea midline Chest Chest inspection: Present normal inspection and symmetric chest wall rise; Absent tenderness Respiratory Respiratory exam: Present wheezes; Absent respiratory distress or accessory muscle use Cardiovascular Cardiovascular exam: Present regular rate, normal rhythm and normal heart sounds Abdominal Exam Abdominal exam: Present soft; Absent distention, tenderness, guarding, rebound, rigidity, trauma, ascites or pulsatile mass exam: Present deferred Extremities Exam Extremities exam: Present normal inspection, full ROM and edema; Absent tenderness Back Exam Back exam: Present normal inspection and full ROM; Absent tenderness Neurological Exam Neurological exam: Present alert, oriented X3 and normal gait; Absent motor sensory deficit Psychiatric Psychiatric exam: Present normal affect and normal mood Skin Skin exam: Present warm, dry and normal color Medical Decision Making Medical Records Medical records reviewed: Yes I reviewed the patient's medical records. Jefry Inquiry Pt receiving controlled substance: No Vital Signs: 05/14/23 10:42 05/14/23 11:24 05/14/23 11:30 Temperature 98.0 F Temperature Source Oral Pulse Rate 68 67 Pulse Rate [Radial] 70 Respiratory Rate 22 20 19 Blood Pressure 171/71 H 168/74 H Blood Pressure [Right Arm] 153/64 H Blood Pressure Mean 86 93 Blood Pressure Mean [Right Arm] 93 Blood Pressure Source [Right Arm] Automatic Cuff Blood Pressure Position [Right Arm] Sitting 02 Sat by Pulse Oximetry 95 98 94 L Oxygen Delivery Method Nasal Cannula Nasal Cannula Oxygen Flow Rate (LPM) 3 3 05/14/23 12:00 Temperature Temperature Source Pulse Rate 70 Pulse Rate [Radial] Respiratory Rate 20 Blood Pressure 169/72 H Blood Pressure [Right Arm] Blood Pressure Mean 96 Blood Pressure Mean [Right Arm] Blood Pressure Source [Right Arm] Blood Pressure Position [Right Arm] 02 Sat by Pulse Oximetry 68 L Oxygen Delivery Method Nasal Cannula Oxygen Flow Rate (LPM) 3 Lab Data Lab results reviewed: Yes I reviewed the patient's lab results. Lab Results 05/14/23 10:47: VBG pH 7.33, VBG pCO2 62.2 H, VBG pO2 37.3, VBG HCO3 32.0 H, VBG Total CO2 33.9 H, VBG O2 Saturation 69.4, VBG Base Excess 6.0 H 05/14/23 10:55: WBC 11.1 H, RBC 4.13 L, Hgb 11.5 L, Hct 35.2 L, MCV 85.4, MCH 27.9, MCHC 32.7, RDW 16.2, Plt Count 263, MPV 8.0, Neut % (Auto) 77.5, Lymph % (Auto) 14.7, Sharkey % (Auto) 5.5, Eos % (Auto) 2.0, Baso % (Auto) 0.4, Neut # (Auto) 8.6 H, Lymph # (Auto) 1.6, Sharkey # (Auto) 0.6, Eos # (Auto) 0.2, Baso # (Auto) 0.0, Sodium 141, Potassium 4.3, Chloride 100, Carbon Dioxide 36 H, BUN 60 H, Creatinine 2.40 H, Estimated Creat Clear 49, Estimated GFR 26 L, Est GFR (A frican Amer) 32 L, Glucose 127 H, Calcium 8.6, Total Bilirubin 0.5, AST 36, ALT 30, Alkaline Phosphatase 104, Troponin I 0.02, NT-Pro-B Natriuret Pep 1050 H, Total Protein 7.2, Albumin 3.9 05/14/23 11:10: Lactate 0.9, SARS-CoV-2 (PCR) Not detected, Influenza A Untype (PCR) Not detected, Influenza Type B (PCR) Not detected 05/14/23 10:55 05/14/23 10:55 Orders (Tests/Meds): ED MEDICATIONS Generic Name Dose Route Start Last Admin Trade Name Freq PRN Reason Stop Dose Admin Sodium Chloride 10 ml 05/14/23 11:01 Sodium Chloride 0.9% 10ml Flush Syringe IV 06/13/23 11:00 NEEDED PRN Maintain IV Site Discontinued Medications Generic Name Dose Route Start Last Admin Trade Name Freq PRN Reason Stop Dose Admin Albuterol/Ipratropium 9 ml 05/14/23 10:47 05/14/23 11:10 Ipratropium/Albuterol 3 Ml Neb IH 05/14/23 10:48 9 ml ONCE ONE Administration ORDERS Category Date Time Status CXR --portable [XR chest portable] Stat Exams 05/14/23 10:47 Completed BNP [Brain Natriuretic Peptide] Stat Lab 05/14/23 10:55 Results CBC w/Auto Diff [Complete Blood Count Auto Diff] Stat Lab 05/14/23 10:55 Completed CMP [Comprehensive Metabolic Panel] Stat Lab 05/14/23 10:55 Results Lactic Acid Stat Lab 05/14/23 11:10 Completed Rapid PCR Covid and Flu A/B Stat Lab 05/14/23 11:10 Completed Troponin I Q3H Lab 05/14/23 10:55 Results Troponin I Q3H Lab 05/14/23 14:00 Ordered VBG [Venous Blood Gas] Stat RT 05/14/23 10:47 Completed 12-lead EKG Request [ECG Request] Stat Y 05/14/23 10:47 Ordered Medical Decision Narrative: In summary, Patient has a PMHx significant for heart failure, COPD emphysema, type 2 diabetes, hyperlipidemia, hypertension, pulmonary hypertension, GOSIA, CAD, carotid artery stenosis, peripheral vascular disease who presents to the ED with complaints of cough, congestion, shortness of breath. Patient notes that for the past week, he has been feeling fatigued, generalized malaise, having shortne ss of breath cough, congestion, rhinorrhea. Patient notes that overnight, shortness of breath significantly worsened and this morning felt extremely short of breath on his home 3 L nasal cannula. On EMS arrival, the patient was satting 91%. Patient was given a DuoNeb and 125 mg of IV Solu-Medrol. Patient denies any fevers, chills. On physical examination, the patient was morbidly obese, with 4+ pitting edema bilateral lower extremities, rales in the lower lobes, decreased air movement and diffuse end expiratory wheezing on pulmonary exam. The DDx includes, but is not limited to, ACS, PE, CHF exacerbation, asthma vs COPD exacerbation, arrhythmia, pneumothorax, pneumonia, pleural effusion, acute metabolic derangement, acute hematologic derangement, viral syndrome, pericarditis/myocarditis, thoracic aortic dissection, musculoskeletal chest pain, costochondritis or other acute infectious process. All of these have been considered, however ruling out the most morbid conditions drove my clinical assessment and thus the following laboratory and/or radiographic evaluation was conducted to the appropriate extent based on history and physical examination. All ordered laboratory studies independently reviewed and interpreted by myself and pertinent for: - CBC was notable for mild leukocytosis to 11, no actionable anemia or thrombocytopenia - VBG was notable for mild hypercapnia to 62, but compensated pH. - CMP was notable for baseline creatinine of 2.4, no acute on chronic kidney injury. - BNP was elevated at 1050, troponin was within normal limits EKG independently reviewed and interpreted as follows: - EKG: Regular rate and rhythm. No actionable ST elevations or interval a bnormalities with normal QTc X-ray/CT/US studies independently reviewed and interpreted by myself and notable for: - Chest XR was unremarkable for any signs of an acute pulmonary process, including pneumonia, ARDS, pleural effusion, pulmonary edema, pneumothorax, or pneumomediastinum. No obvious osseous injuries. Interventions/Medications Received in the ED: - 3 DuoNebs Reassessment: On re-evaluation of patient, patient continued complain of shortness of breath despite improved pulm exam. Consults: At this time it was felt that the patient should be evaluated by for possible admission. After I had an interactive discussion with the team, assumed primary responsibility for patient care and agreed to admit the patient to their service. Magdi Walsh MD Emergency Medicine Critical Care Critical Care Time Critical Care Time: No
--- NOTE | 2023-05-14 11:05 | PC.NURSE ---
RT @ BS for neb tx
[2023-05-14 11:09] LABS: Basophils % 0.4 % (0.1-2.0); Eosinophils # 0.2 K/mm3 (0.0-0.4); Hematocrit 35.2 % (42.0-52.0); Hemoglobin 11.5 g/dL (14.1-18.0); Lymphocytes # 1.6 K/mm3 (0.7-4.5); Lymphocytes % 14.7 % (10-50); Mean Corpuscular HGB Conc 32.7 g/dL (31.8-35.4); Mean Corpuscular Hemoglobin 27.9 pg (27.0-31.2); Mean Corpuscular Volume 85.4 fl (80-94); Monocytes # 0.6 K/mm3 (0.1-1.0); Monocytes % 5.5 % (1.7-9.3); Neutrophils # 8.6 K/mm3 (1.8-7.8); Neutrophils % 77.5 % (37.0-80.0); Platelet Count 263 K/mm3 (142-424); Red Blood Count 4.13 M/mm3 (4.60-6.20); Red Cell Distribution Width 16.2 % (11.5-17.5); White Blood Count 11.1 K/mm3 (4.8-10.8)
[2023-05-14] MEDS: IPRATROPIUM/ALBUTEROL 3 ML NEB 9 ML IH (11:10)
[2023-05-14 11:12] LABS: Chloride 100 mmol/L (98-107)
[2023-05-14 11:13] LABS: Potassium 4.3 mmoL/L (3.5-5.1); Sodium 141 mmol/L (136-145)
[2023-05-14 11:16] LABS: Alanine Aminotransferase 30 U/L (12-78); Alkaline Phosphatase 104 U/L (38-126); Aspartate Amino Transferase 36 U/L (17-59); Bilirubin,Total 0.5 mg/dl (0.2-1.3); Blood Urea Nitrogen 60 mg/dl (9-20); Calcium 8.6 mg/dl (8.4-10.2); Creatinine Clearance Estimated 49 mL/min (50-200); Estimated Glomerular Filt Rate 26 ml/min (>60); GFR (African American) 32 ML/MIN (>60); Glucose 127 mg/dl (74-100); Total Protein,Serum 7.2 g/dl (6.3-8.2)
[2023-05-14 11:18] LABS: Coronavirus 19, PCR Not Detected (NotDetected); Influenza A, PCR Not Detected (NotDetected); Influenza B, PCR Not Detected (NotDetected)
[2023-05-14 11:19] LABS: VBG Oxygen Saturation 69.4 % (50-70); VBG PCO2 62.2 mmol/L (35-51); VBG PH 7.33 mmol/L (7.31-7.41); VBG PO2 37.3 mmol/L (28-40); VBG Total CO2 33.9 mmol/L (23-27)
--- NOTE | 2023-05-14 11:23 | ECG_ITS ---
APPROVED REPORT Exam: Resting ECG HR:67 bpm ECG Measurements Heart Rate 67 AXES OH 207 P -75 QRSd 149 QRS -71 QT 412 T 72 QTc 428 Conclusion SINUS RHYTHM INTRAVENTRICULAR CONDUCTION DELAY [130+ ms QRS DURATION] LEFT VENTRICULAR HYPERTROPHY AND ST-T CHANGE [VOLTAGE CRITERIA PLUS ST/T ABNORMALITY] INFERIOR MYOCARDIAL INFARCTION , OF INDETERMINATE AGE [40+ ms Q WAVE AND/OR ST/T ABNORMALITY IN II/aVF] ANTEROLATERAL MYOCARDIAL INFARCTION , OF INDETERMINATE AGE [40+ ms Q WAVE IN I/aVL/V3-V6] ABNORMAL ECG UNCONFIRMED REPORT Electronically signed by : Collins Muñoz MD 05/14/2023 16:51:27
[2023-05-14 11:25] LABS: NT Pro Brain Natriuretic Pep. 1050 pg/mL (0-450)
[2023-05-14 11:28] LABS: Troponin I 0.02 ng/ml (0.00-0.034)
[2023-05-14 11:29] LABS: Lactic Acid 0.9 mmol/L (0.7-2.1)
--- NOTE | 2023-05-14 12:21 | PC.NURSE ---
URINAL EMPTIED AND WARM BLANKET PROVIDED. CALL LIGHT WITHIN REACH
--- NOTE | 2023-05-14 12:38 | PC.NURSE ---
Dr Walsh speaking to Dr helm
--- NOTE | 2023-05-14 12:40 | PC.NURSE ---
CARE MANAGEMENT NOTIFIED OF ADMISSION
--- NOTE | 2023-05-14 12:42 | EXP.HP ---
History of Present Illness *Admission Date: 05/14/23 *Reason for visit:: dyspnea, cough *History of present illness: Mr. Eng is a 78-year-old male with history of heart failure, COPD, diabetes, hyperlipidemia, CKD, carotid artery stenosis, AAA, peripheral vascular disease. He presented to the ER via EMS because of increased cough and congestion that has been worsening over the past week. Normally wears 3 L at home. States he has been feeling more short of breath and dyspneic with exertion. Noticing some increased swelling in his legs. Still taking his medications at home as prescribed. Denies any chest pain. Cough is nonproductive. He feels that he has become more fatigued over the past week. As shortness of breath is worse overnight, especially last night with extreme worsening this morning on his 3 L nasal cannula. He was given DuoNebs in the ambulance and 125 mg of Solu-Medrol on his way to the ER. He denies any fever, chills, nausea, vomiting, diarrhea. In the ER, workup concerning for COPD exacerbation and CHF with elevated BNP. Creatinine 2.4 which is within the range of his baseline. White cell count of 11,000. Electrolytes normal with potassium of 4.3 and sodium 141. Medicine was consulted for admission and further management of his CHF and COPD exacerbations. On arrival to the floor, patient has significant edema in his legs. He sounds rhonchorous and crackly. Tolerating 3 L nasal cannula with sats in the low 90s. Appears dyspneic during interview. [facility] Disclaimer: The information contained in this section may have been updated after the patient was seen, as this information can be updated by other users. Medical History (HFpEF) heart failure with preserved ejection fraction Abdominal aortic aneurysm (AAA) Abnormal cardiovascular stress test Abnormal electrocardiogram [ECG] [EKG] Allergies Arthritis Atypical angina CAD in [place] artery Cataract Cellulitis Congestive heart failure COPD (chronic obstructive pulmonary disease) Diabetes mellitus, type 2 Edema History of cataract History of COVID-19 History of gastroesophageal reflux (GERD) History of stroke Hyperkalemia Hyperlipidemia Hypertension Pneumonia Pulmonary hypertension Skin cancer Sleep apnea Stenosis of carotid artery Surgical History History of cholecystectomy History of colonoscopy History of knee replacement History of left hip replacement Family History No significant family history Social History Smoking Status: Former smoker alcohol intake: former current occupational status: retired Travel in the last 8 weeks: None household members: spouse housing: house caffeine: Yes Review of Systems Review of Systems Review of systems (narrative): 14 point review of systems performed, pertinent positives and negatives as per [facility] Meds Home Medications and Allergies Home Medications Medication Instructions Recorded Confirmed Type allopurinol 100 mg tablet 100 mg PO DAILY Gout 10/07/20 05/14/23 History ergocalciferol (vitamin D2) 1,250 50,000 unit PO WEEKLY Supplement 10/07/20 05/14/23 History mcg (50,000 unit) capsule insulin aspart U-100 100 unit/mL 20 units SQ TID Diabetes 10/07/20 05/14/23 History (3 mL) subcutaneous pen omeprazole 20 mg capsule,delayed 20 mg PO DAILY Acid Reflux 10/07/20 05/14/23 History release aspirin 81 mg chewable tablet 81 mg PO DAILY Heart Health 01/04/22 05/14/23 History atorvastatin 40 mg tablet 40 mg PO HS Cholesterol 01/04/22 05/14/23 History montelukast 10 mg tablet 10 mg PO PM Allergy Symptoms 01/04/22 05/14/23 History potassium chloride 10 mEq 10 meq PO DAILY Supplement 01/04/22 05/14/23 History tablet,extended release pregabalin 25 mg capsule 25 mg PO TID Pain 01/04/22 05/14/23 History fluticasone fur. 100 mcg-umeclid 1 inh inhalation DAILY Breathing 04/05/23 05/14/23 History 62.5 mcg-vilant 25 mcg Problems inhalat.powder (Trelegy Ellipta) hydralazine 50 mg tablet 50 mg PO TID High Blood Pressure 04/05/23 05/14/23 History insulin degludec 200 unit/mL (3 60 unit SQ BID Diabetes 04/05/23 05/14/23 History mL) subcutaneous pen (Tresiba FlexTouch U-200 insulin) levothyroxine 50 mcg tablet 50 mcg PO DAILY Thyroid 04/05/23 05/14/23 History propranolol 80 mg capsule,24 80 mg PO DAILY High Blood Pressure 04/05/23 05/14/23 History hr,extended release torsemide 20 mg tablet 20 mg PO BID Fluid 04/05/23 05/14/23 History diltiazem HCl 240 mg capsule,24 240 mg PO DAILY 30 days #30 caps 04/10/23 05/14/23 Rx hr,extended release semaglutide 0.25 mg or 0.5 mg (2 0.25 mg (0.368 mL) SQ WEEKLY #3 mL 04/17/23 05/14/23 Rx mg/3 mL) subcutaneous pen injector (Ozempic) albuterol sulfate 2.5 mg/3 mL 2.5 mg inhalation QID 05/14/23 05/14/23 History (0.083 %) solution for nebulization albuterol sulfate 90 mcg/actuation 3 inh inhalation QID 05/14/23 05/14/23 History aerosol inhaler New Prescriptions to Start Prescriptions: Allergies Allergy/AdvReac Type Severity Reaction Status Date / Time latex [LATEX] Allergy Unknown Unknown Verified 04/17/23 14:20 allergy reaction Iodinated Contrast Media Allergy Unknown Verified 04/17/23 14:20 allergy reaction Exam Data for Last 24 hours Vital signs and Labs for Last 24 Hours: Temp Pulse Resp BP Pulse Ox O2 Del Method O2 Flow Rate 98.0 F 70 20 169/72 H 68 L Nasal Cannula 3 05/14/23 10:42 05/14/23 12:00 05/14/23 12:00 05/14/23 12:00 05/14/23 12:00 05/14/23 12:00 05/14/23 12:00 Laboratory Results - last 24 hr 05/14/23 10:47: VBG pH 7.33, VBG pCO2 62.2 H, VBG pO2 37.3, VBG HCO3 32.0 H, VBG Total CO2 33.9 H, VBG O2 Saturation 69.4, VBG Base Excess 6.0 H 05/14/23 10:55: WBC 11.1 H, RBC 4.13 L, Hgb 11.5 L, Hct 35.2 L, MCV 85.4, MCH 27.9, MCHC 32.7, RDW 16.2, Plt Count 263, MPV 8.0, Neut % (Auto) 77.5, Lymph % (Auto) 14.7, [place] % (Auto) 5.5, Eos % (Auto) 2.0, Baso % (Auto) 0.4, Neut # (Auto) 8.6 H, Lymph # (Auto) 1.6, [place] # (Auto) 0.6, Eos # (Auto) 0.2, Baso # (Auto) 0.0, Sodium 141, Potassium 4.3, Chloride 100, Carbon Dioxide 36 H, BUN 60 H, Creatinine 2.40 H, Estimated Creat Clear 49, Estimated GFR 26 L, Est GFR ( Amer) 32 L, Glucose 127 H, Calcium 8.6, Total Bilirubin 0.5, AST 36, ALT 30, Alkaline Phosphatase 104, Troponin I 0.02, NT-Pro-B Natriuret Pep 1050 H, Total Protein 7.2, Albumin 3.9 05/14/23 11:10: Lactate 0.9, SARS-CoV-2 (PCR) Not detected, Influenza A Untype (PCR) Not detected, Influenza Type B (PCR) Not detected I & O for Last 24 hours: Intake & Output 05/11/23 05/12/23 05/13/23 05/14/23 23:59 23:59 23:59 23:59 Weight 131.542 kg Constitutional Constitutional: mild distress, morbidly obese, chronically ill appearing and cooperative *Routine HEENT Exam Head: Present normocephalic Eye: Present EOMI and PERRL ENT: Present mucous membranes moist *Routine Neck Exam Neck: Present supple; Absent lymphadenopathy *Routine Respiratory Exam Respiratory: Present prolonged expiratory phase, wheezes, crackles and distant breath sounds; Absent rhonchi *Routine Cardiovascular Exam Cardiovascular: Present RRR *Routine Abdominal Exam Abdominal: Present soft and normoactive bowel sounds; Absent tenderness *Routine Rectal Exam Rectal:: deferred *Routine Genitalia Exam Genitalia:: normal male *Routine Extremities Exam Extremities: Present edema (3+ dense woody edema to thighs); Absent cyanosis or clubbing Comments: Chronic stasis changes in lower legs *Routine Skin Exam Skin: Present warm; Absent rash *Routine Neurological Exam Neurological: Present alert, oriented X3 and moving all extremities; Absent altered mental status Assessment and Plan *Assessment and plan (1) Acute on chronic combined systolic (congestive) and diastolic (congestive) heart failure: Status: Acute Category: Medical Code(s): I50.43 - Acute on chronic combined systolic (congestive) and diastolic (congestive) heart failure (2) COPD (chronic obstructive pulmonary disease): Status: Acute Qualifiers: COPD type: unspecified COPD Qualified Code(s): J44.9 - Chronic obstructive pulmonary disease, unspecified Category: Medical Code(s): J44.9 - Chronic obstructive pulmonary disease, unspecified (3) CKD (chronic kidney disease): Status: Acute Qualifiers: Chronic kidney disease stage: unspecified stage Qualified Code(s): N18.9 - Chronic kidney disease, unspecified Category: Medical Code(s): N18.9 - Chronic kidney disease, unspecified (4) CAD in [place] artery: Status: Acute Category: Medical Code(s): I25.10 - Atherosclerotic heart disease of [place] coronary artery without angina pectoris (5) (HFpEF) heart failure with preserved ejection fraction: Status: Acute Qualifiers: Heart failure chronicity: acute on chronic Qualified Code(s): I50.33 - Acute on chronic diastolic (congestive) heart failure Category: Medical Code(s): I50.30 - Unspecified diastolic (congestive) heart failure (6) Diabetes mellitus, type 2: Status: Chronic Qualifiers: Diabetes mellitus complication status: without complication Diabetes mellitus [facility] insulin use: with [facility] use Qualified Code(s): E11.9 - Type 2 diabetes mellitus without complications; 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 Category: Medical Code(s): E11.9 - Type 2 diabetes mellitus without complications (7) Abdominal aortic aneurysm (AAA): Status: Acute Qualifiers: Abdominal aorta location: unspecified Presence of rupture: without rupture Qualified Code(s): I71.40 - Abdominal aortic aneurysm, without rupture, unspecified Category: Medical Code(s): I71.40 - Abdominal aortic aneurysm, without rupture, unspecified (8) Hypertension: Status: Acute Qualifiers: Hypertension type: primary hypertension Qualified Code(s): I10 - Essential (primary) hypertension Category: Medical Code(s): I10 - Essential (primary) hypertension (9) Hyperlipidemia: Status: Acute Qualifiers: Hyperlipidemia type: mixed hyperlipidemia Qualified Code(s): E78.2 - Mixed hyperlipidemia Category: Medical Code(s): E78.5 - Hyperlipidemia, unspecified (10) Morbid obesity: Status: Chronic Category: Medical Code(s): E66.01 - Morbid (severe) obesity due to excess calories Plan Patient is a 78-year-old male with past medical history of COPD diabetes mellitus CHF, GERD hypertension hyperlipidemia who presented to hospital due to dyspnea. Discussed case with ER, request admission for CHF and COPD exacerbation. Medicine agreed to admit for further management. Patient appears to be volume overloaded. Chest imaging personally reviewed, increased congestion bilaterally. Initiated on diuresis. Problems addressed as follows: Acute on chronic hypoxemic respiratory failure: COPD -Chest imaging reviewed showing bilateral congestion. -Continue supplemental oxygen with goal sats greater 90%. Currently on 3 L. -Prednisone 40 mg p.o. initiated, will treat for 5 days total - WBC count stable at 11, this is improved from last visit. Holding on antibiotics at this time. -DuoNebs every 6 hours Heart failure with preserved ejection fraction Pulmonary hypertension HTN -BNP elevated 1050 -Chart review showed echo from last visit with normal EF with mildly dilated RV and biatrial dilatation. Stress test performed showing reversible defect on Lexiscan. Taken for left heart cath, mild disease. No stents placed. Recommend continued medical management. -Will continue diuresis this visit. Initiated on Bumex 2 mg upon arrival. -Continue 2 mg twice daily starting tomorrow. - Continue home propranolol 40 mg twice daily. Diltiazem increased to 240 mg daily for hypertension. - Hydralazine 50 mg 3 times a day. Continue aspirin 81 mg daily. - ultrasound of AAA obtained last visit in april diameter 3.2 cm. Does not meet criteria for aneurysm at this time. -Review of chart from last visit shows carotid ultrasounds obtained showing less than 50% stenosis bilaterally. Hyperlipidemia: Continue statin, goal LDL less than 100 CKD - Previous baseline creatinine 2.0. Creatinine 2.4, BUN 60. Within range of where his creatinine and BUN have been running the past few months per chart review. - Concerned that this may be his new baseline. Making adequate urine. -Patient has been hesitant to see [facility] consultant. Has a good understanding of his chronic kidney disease. No interest in dialysis at this time. -Repeat CMP, magnesium ordered for the morning. Diabetes mellitus: A1c improved from last check, 7.3 today. Given comorbidities, this is within ADA goal of less than 8. Continue sliding scale insulin, fingersticks ACHS during admission. Continue insulin glargine as formulary conversion at 45 units twice daily. Gout: Continue 100 mg allopurinol daily GERD: Continue pantoprazole 40 mg nightly Neuropathy: Continue Lyrica 25 mg 3 times daily Obesity complicates all aspects of his care Full code Diabetic diet
--- NOTE | 2023-05-14 13:11 | PC.NURSE ---
REPORT GIVEN TO CRISTIAN PENG, RN
[2023-05-14 13:59] LABS: Hemoglobin A1C 7.3 % (4.0-6.0)
[2023-05-14] MEDS: predniSONE 20MG TAB 40 MG PO (14:08)
[2023-05-14 14:22] LABS: Albumin Level 3.9 g/dl (3.5-5.0); Albumin/Globulin Ratio 1.2 (1.1-1.8); Anion Gap 9.3 mEq/L (5-15); Carbon Dioxide 36 mmol/L (22.0-30.0); Globulin 3.3 g/dL (1.3-3.2)
[2023-05-14] MEDS: BUMETANIDE 1MG/4ML VIAL 2 MG IV (15:01)
--- NOTE | 2023-05-14 15:12 | PC.NURSE ---
Rounded on patient. No needs or concerns at this time.
[2023-05-14 15:27] LABS: Troponin I 0.02 ng/ml (0.00-0.034)
--- NOTE | 2023-05-14 15:27 | P.CONPHA_ITS ---
Pharmacy Intervention Comments: Med reconciliation completed using external fill history and patient/ interview. Mr Eng said we would have to ask his about his medications. Several of his medications did not show recent fills, but Ms Eng says this is because they switched to [facility] where they get pre-packed med ications.
[2023-05-14] MEDS: humaLOG 100 UNITS/ML 3ML VIAL (SSI) SQ ×2 (16:34→20:59)
[2023-05-14] MEDS: MONTELUKAST SODIUM 10MG TAB 10 MG PO (17:57)
[2023-05-14] MEDS: IPRATROPIUM/ALBUTEROL 3 ML NEB IH ×2 (18:09→23:11)
--- NOTE | 2023-05-14 18:28 | PC.NURSE ---
Patient new admit from ER. Patient has c/o shortness of air and cough. VSS, patient on 3L oxygen per [place].
[2023-05-14] MEDS: PANTOPRAZOLE 40MG TABLET 40 MG PO (20:59)
[2023-05-14] MEDS: ATORVASTATIN 40MG TABLET 40 MG PO (20:59)
[2023-05-14] MEDS: PREGABALIN 25MG CAPSULE 25 MG PO (20:59)
[2023-05-14] MEDS: HYDRALAZINE HCL 25MG TABLET 50 MG PO (20:59)
[2023-05-14] MEDS: INSULIN GLARGINE 100 UNITS/ML 3ML FLEXPEN 45 UNIT SQ (21:00)
[2023-05-15] VITALS (8 sets, daily range): BP systolic 150–187; BP diastolic 73–92; PULSE 72–92; RESP 17–22; TEMP 36.5–37; O2SAT 91–98; BMI 39.2
[2023-05-15 02:03] LABS: POC Glucose,Bedside 302 (70-110)
[2023-05-15] MEDS: FLUTICASONE/UMECLIDIN/VILANTER 100/62.5/25MCG INHALER 1 PUFF IH (06:21)
[2023-05-15] MEDS: IPRATROPIUM/ALBUTEROL 3 ML NEB IH ×3 (06:21→18:04)
[2023-05-15 06:25] LABS: Chloride 97 mmol/L (98-107); Potassium 4.5 mmoL/L (3.5-5.1); Sodium 136 mmol/L (136-145)
[2023-05-15 06:28] LABS: Alanine Aminotransferase 45 U/L (12-78); Albumin Level 3.8 g/dl (3.5-5.0); Albumin/Globulin Ratio 1.1 (1.1-1.8); Alkaline Phosphatase 111 U/L (38-126); Anion Gap 12.5 mEq/L (5-15); Aspartate Amino Transferase 45 U/L (17-59); Bilirubin,Total 0.5 mg/dl (0.2-1.3); Blood Urea Nitrogen 60 mg/dl (9-20); Calcium 8.8 mg/dl (8.4-10.2); Carbon Dioxide 31 mmol/L (22.0-30.0); Creatinine Clearance Estimated 53 mL/min (50-200); Estimated Glomerular Filt Rate 29 ml/min (>60); GFR (African American) 35 ML/MIN (>60); Globulin 3.4 g/dL (1.3-3.2); Glucose 269 mg/dl (74-100); Magnesium 1.9 mg/dl (1.6-2.3); Total Protein,Serum 7.2 g/dl (6.3-8.2)
[2023-05-15] MEDS: humaLOG 100 UNITS/ML 3ML VIAL (SSI) SQ ×4 (06:46→20:35)
[2023-05-15] MEDS: LEVOTHYROXINE 50MCG (0.05MG) TAB 50 MCG PO (06:47)
[2023-05-15 06:49] LABS: POC Glucose,Bedside 264 (70-110)
[2023-05-15 07:41] LABS: Hematocrit 33.7 % (42.0-52.0); Hemoglobin 10.8 g/dL (14.1-18.0); Lymphocytes # 0.8 K/mm3 (0.7-4.5); Lymphocytes % 5.8 % (10-50); Mean Corpuscular HGB Conc 32.1 g/dL (31.8-35.4); Mean Corpuscular Hemoglobin 27.2 pg (27.0-31.2); Mean Corpuscular Volume 84.7 fl (80-94); Mean Platelet Volume 8.3 fl (7.4-10.4); Monocytes # 0.3 K/mm3 (0.1-1.0); Monocytes % 2.6 % (1.7-9.3); Neutrophils # 11.9 K/mm3 (1.8-7.8); Neutrophils % 91.5 % (37.0-80.0); Platelet Count 268 K/mm3 (142-424); Red Blood Count 3.97 M/mm3 (4.60-6.20); Red Cell Distribution Width 16.3 % (11.5-17.5); White Blood Count 13.1 K/mm3 (4.8-10.8)
[2023-05-15 07:48] LABS: MANUAL DIFFERENTIAL MANUAL DIFFERENTIAL (MANUAL DIFF)
[2023-05-15] MEDS: DOXYCYCLINE HYCLATE 100 MG in 0.9 % SODIUM CHLORIDE 250 ML 166.667000000000002 MG IV ×2 (08:48→20:37)
[2023-05-15] MEDS: BUMETANIDE 1MG/4ML VIAL 2 MG IV ×2 (08:48→17:19)
[2023-05-15] MEDS: predniSONE 20MG TAB 40 MG PO (08:48)
[2023-05-15] MEDS: POTASSIUM CHLORIDE 10MEQ TABLET.ER 10 MEQ PO (08:48)
[2023-05-15] MEDS: dilTIAZem ER 240MG CAPSULE 240 MG PO (08:48)
[2023-05-15] MEDS: ALLOPURINOL 100MG TABLET 100 MG PO (08:49)
[2023-05-15] MEDS: HYDRALAZINE HCL 25MG TABLET 50 MG PO ×3 (08:49→20:35)
[2023-05-15] MEDS: ASPIRIN 81MG CHEWABLE TABLET 81 MG PO (08:49)
[2023-05-15] MEDS: PREGABALIN 25MG CAPSULE 25 MG PO ×3 (09:27→21:20)
[2023-05-15 09:40] LABS: Lymphocytes % 6 % (10-50); Monocytes % 3 % (2-9); Neutrophils % 91 % (42-76); Platelet Estimate Normal; RBC Morphology Normal; Total Cells Counted 100
[2023-05-15 11:25] LABS: POC Glucose,Bedside 253 (70-110)
[2023-05-15 11:33] LABS: POC Glucose,Bedside 220 (70-110)
[2023-05-15] MEDS: PROPRANOLOL 20MG TAB 20 MG PO ×3 (13:08→20:34)
--- NOTE | 2023-05-15 13:23 | P.PN_ITS ---
Subjective *Date: 05/15/23 *Time: 13:23 Interval history: Patient still feels short of breath when he tries to lay flat. Denies any fevers overnight. Has diuresed well. -3 L since admission. Glucose still elevated on morning labs. No chest pain, nausea, vomiting, diarrhea. Stable on 3 L nasal cannula oxygen Medical Exam Vital signs and Labs for Last 24 Hours: Vital Signs Temp Pulse Pulse Resp BP BP Pulse Ox 05/15/23 08:00 05/15/23 07:40 98.6 F 91 H 19 166/80 H 96 05/15/23 07:00 05/15/23 06:21 90 05/15/23 06:21 86 05/15/23 06:21 98 05/15/23 05:00 05/15/23 04:00 97.7 F 92 H 22 150/74 H 96 05/15/23 03:00 05/15/23 01:00 05/14/23 23:00 05/14/23 21:00 05/14/23 23:35 82 05/14/23 23:35 76 05/14/23 23:04 05/14/23 20:00 97.7 F 83 22 168/73 H 96 05/14/23 18:38 05/14/23 18:38 87 05/14/23 18:37 78 05/14/23 13:30 05/14/23 16:00 97.8 F 76 24 184/84 H 96 05/14/23 14:06 98.1 F 78 20 118/68 96 05/14/23 13:40 97.9 F 70 20 171/78 H 05/14/23 13:30 171/78 H 98 O2 Del Method O2 Flow Rate FiO2 05/15/23 08:00 Nasal Cannula 2 05/15/23 07:40 Nasal Cannula 4 05/15/23 07:00 Nasal Cannula 3 05/15/23 06:21 05/15/23 06:21 05/15/23 06:21 Nasal Cannula 3 05/15/23 05:00 Nasal Cannula 3 05/15/23 04:00 Nasal Cannula 3 05/15/23 03:00 Nasal Cannula 3 05/15/23 01:00 Nasal Cannula 3 05/14/23 23:00 Nasal Cannula 3 05/14/23 21:00 Nasal Cannula 3 05/14/23 23:35 05/14/23 23:35 05/14/23 23:04 Nasal Cannula 3 05/14/23 20:00 Nasal Cannula 3 05/14/23 18:38 Nasal Cannula 3 32 05/14/23 18:38 05/14/23 18:37 05/14/23 13:30 Nasal Cannula 05/14/23 16:00 Nasal Cannula 3 05/14/23 14:06 Nasal Cannula 3 05/14/23 13:40 Nasal Cannula 3 05/14/23 13:30 Intake and Output 05/14/23 05/15/23 05/15/23 23:59 07:59 15:59 Intake Total 480 / 600 270 / 510 240 / 510 Output Total 2850 / 3050 800 / 800 Balance -2370 / -2450 -530 / -290 240 / -290 Intake: Intake, Oral Amount 480 / 600 270 / 510 240 / 510 Output: Output, Urine Amount 2850 / 3050 800 / 800 Other: Number of Voids 2 Number of Unmeasured Voids 1 1 Weight 131.587 kg 131.5 kg Patient Weight 05/15/23 23:59 Weight 131.5 kg Laboratory Results - last 24 hr 05/14/23 10:55: Carbon Dioxide 36 H, Anion Gap 9.3, Hemoglobin A1c 7.3 H, Albumin 3.9, Globulin 3.3 H, Albumin/Globulin Ratio 1.2 05/14/23 14:45: Troponin I 0.02 05/14/23 16:29: POC Glucose 253 H 05/14/23 20:14: POC Glucose 302 H* 05/15/23 05:49: WBC 13.1 H, RBC 3.97 L, Hgb 10.8 L, Hct 33.7 L, MCV 84.7, MCH 27.2, MCHC 32.1, RDW 16.3, Plt Count 268, MPV 8.3, Neut % (Auto) 91.5 H, Lymph % (Auto) 5.8 L, [place] % (Auto) 2.6, Eos % (Auto) 0.0 L, Baso % (Auto) 0.0 L, Neut # (Auto) 11.9 H, Lymph # (Auto) 0.8, [place] # (Auto) 0.3, Eos # (Auto) 0.0, Baso # (Auto) 0.0, Total Counted 100, Neutrophils % (Manual) 91 H, Lymphocytes % (Manual) 6 L, Monocytes % (Manual) 3, Platelet Estimate Normal, RBC Morphology Normal, Sodium 136, Potassium 4.5, Chloride 97 L, Carbon Dioxide 31 H, Anion Gap 12.5, BUN 60 H, Creatinine 2.20 H, Estimated Creat Clear 53, Estimated GFR 29 L, Est GFR ( Amer) 35 L, Glucose 269 H D, Calcium 8.8, Magnesium 1.9, Total Bilirubin 0.5, AST 45, ALT 45 D, Alkaline Phosphatase 111, Total Protein 7.2, Albumin 3.8, Globulin 3.4 H, Albumin/Globulin Ratio 1.1 05/15/23 06:41: POC Glucose 264 H 05/15/23 11:22: POC Glucose 220 H I & O for Labs for Last 24 Hours: Intake & Output 05/12/23 05/13/23 05/14/23 05/15/23 23:59 23:59 23:59 23:59 Intake Total 600 / 600 510 / 510 Output Total 2850 / 3050 800 / 800 Balance -2250 / -2450 -290 / -290 Weight 134.405 kg 131.5 kg Constitutional: Present no acute distress, morbidly obese, chronically ill appearing and cooperative Head: Present atraumatic and normocephalic ENT: Present normal exam Neck: Present normal inspection Respiratory: Present wheezes, crackles (In bases) and normal respiratory effort; Absent rhonchi Cardiac: Present Reg Rate and Rhythm GI: Present soft and normal bowel sounds; Absent distention or tenderness (male): Present normal inspection Extremities: Present normal inspection, full ROM and edema (3+ bilateral lower extremity edema to knees) Comment:: Chronic stasis dermatitis Skin: Present intact; Absent erythema Neuro: Present Grossly Intact, alert, awake, oriented x 3 and moves all extremities Assessment and Plan *Assessment and plan (1) Acute on chronic combined systolic (congestive) and diastolic (congestive) heart failure: Status: Acute Category: Medical Code(s): I50.43 - Acute on chronic combined systolic (congestive) and diastolic (congestive) heart failure (2) COPD (chronic obstructive pulmonary disease): Status: Acute Qualifiers: COPD type: unspecified COPD Qualified Code(s): J44.9 - Chronic obstructive pulmonary disease, unspecified Category: Medical Code(s): J44.9 - Chronic obstructive pulmonary disease, unspecified (3) CKD (chronic kidney disease): Status: Acute Qualifiers: Chronic kidney disease stage: unspecified stage Qualified Code(s): N18.9 - Chronic kidney disease, unspecified Category: Medical Code(s): N18.9 - Chronic kidney disease, unspecified (4) CAD in [place] artery: Status: Acute Category: Medical Code(s): I25.10 - Atherosclerotic heart disease of [place] coronary artery without angina pectoris (5) (HFpEF) heart failure with preserved ejection fraction: Status: Acute Qualifiers: Heart failure chronicity: acute on chronic Qualified Code(s): I50.33 - Acute on chronic diastolic (congestive) heart failure Category: Medical Code(s): I50.30 - Unspecified diastolic (congestive) heart failure (6) Diabetes mellitus, type 2: Status: Chronic Qualifiers: Diabetes mellitus long-term insulin use: with long term care administrator use Diabetes mellitus complication status: without complication Qualified Code(s): E11.9 - Type 2 diabetes mellitus without complications; Z79.4 - group home (current) use of insulin Category: Medical Code(s): E11.9 - Type 2 diabetes mellitus without complications (7) Abdominal aortic aneurysm (AAA): Status: Acute Qualifiers: Abdominal aorta location: unspecified Presence of rupture: without rupture Qualified Code(s): I71.40 - Abdominal aortic aneurysm, without rupture, unspecified Category: Medical Code(s): I71.40 - Abdominal aortic aneurysm, without rupture, unspecified (8) Hypertension: Status: Acute Qualifiers: Hypertension type: primary hypertension Qualified Code(s): I10 - Essential (primary) hypertension Category: Medical Code(s): I10 - Essential (primary) hypertension (9) Hyperlipidemia: Status: Acute Qualifiers: Hyperlipidemia type: mixed hyperlipidemia Qualified Code(s): E78.2 - Mixed hyperlipidemia Category: Medical Code(s): E78.5 - Hyperlipidemia, unspecified (10) Morbid obesity: Status: Chronic Category: Medical Code(s): E66.01 - Morbid (severe) obesity due to excess calories Plan Patient is a 78-year-old male with past medical history of COPD diabetes mellitus CHF, GERD hypertension hyperlipidemia who presented to hospital due to dyspnea. Discussed case with ER, request admission for CHF and COPD exacerbation. Medicine agreed to admit for further management. Patient appears to be volume overloaded. Chest imaging personally reviewed, increased congestion bilaterally. Initiated on diuresis. Showing response but still dyspneic. Continues to necessitate inpatient management for continued diuresis. Problems addressed as follows: Acute on chronic hypoxemic respiratory failure: COPD -Continue supplemental oxygen with goal sats greater 90%. Currently on 3 L. -Prednisone 40 mg p.o. initiated, will treat for 5 days total -Initiate doxycycline 100 mg twice daily. -White cell count increased to 13.1. Repeat CBC ordered for the morning -DuoNebs every 6 hours Heart failure with preserved ejection fraction Pulmonary hypertension HTN -BNP elevated 1050 -Chart review showed echo from last visit with normal EF with mildly dilated RV and biatrial dilatation. Stress test performed showing reversible defect on Lexiscan. Taken for left heart cath, mild disease. No stents placed. Recommend continued medical management. -Strict I's and O's, -3 L so far, continue Bumex 2 mg twice daily - Continue home propranolol, Diltiazem increased to 240 mg daily for hypertension. - Hydralazine 50 mg 3 times a day. Continue aspirin 81 mg daily. Hyperlipidemia: Continue statin, goal LDL less than 100 CKD - Previous baseline creatinine 2.0. Creatinine 2.4, BUN 60 on admission. 2.2 and 60 this morning respectively. - Concerned that this may be his new baseline. Making adequate urine. 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 Has a good understanding of his chronic kidney disease. No interest in dialysis at this time. -Repeat CMP, magnesium ordered for the morning. Diabetes mellitus: A1c improved from last check, 7.3 today. Given comorbidities, this is within ADA goal of less than 8. Continue sliding scale insulin increased to high intensity, fingersticks ACHS during admission. Continue insulin glargine as formulary conversion increased to 55 units today. Gout: Continue 100 mg allopurinol daily GERD: Continue pantoprazole 40 mg nightly Neuropathy: Continue Lyrica 25 mg 3 times daily Obesity complicates all aspects of his care Full code Diabetic diet
[2023-05-15 17:10] LABS: POC Glucose,Bedside 195 (70-110)
[2023-05-15] MEDS: INSULIN GLARGINE 100 UNITS/ML 3ML FLEXPEN 55 UNIT SQ (17:17)
[2023-05-15] MEDS: MONTELUKAST SODIUM 10MG TAB 10 MG PO (18:25)
--- NOTE | 2023-05-15 19:18 | PC.NURSE ---
Patient is continuing to diurese well. Patient is also having a productive cough. No c/o pain, VSS
[2023-05-15] MEDS: ATORVASTATIN 40MG TABLET 40 MG PO (20:34)
[2023-05-15] MEDS: PANTOPRAZOLE 40MG TABLET 40 MG PO (20:34)
[2023-05-16 00:18] VITALS: PULSE 77
[2023-05-16] MEDS: IPRATROPIUM/ALBUTEROL 3 ML NEB IH ×2 (00:18→06:42)
[2023-05-16 02:39] LABS: POC Glucose,Bedside 273 (70-110)
[2023-05-16 04:00] VITALS: BP 168/80; PULSE 71; RESP 16; TEMP 36.6; O2SAT 94; BMI 39.8
[2023-05-16 06:10] LABS: POC Glucose,Bedside 142 (70-110)
[2023-05-16 06:29] LABS: Potassium 4.4 mmoL/L (3.5-5.1); Sodium 140 mmol/L (136-145)
[2023-05-16 06:30] LABS: Chloride 98 mmol/L (98-107)
[2023-05-16 06:31] LABS: Alanine Aminotransferase 34 U/L (12-78); Aspartate Amino Transferase 34 U/L (17-59); Basophils % 0.1 % (0.1-2.0); Blood Urea Nitrogen 71 mg/dl (9-20); Creatinine Clearance Estimated 47 mL/min (50-200); Estimated Glomerular Filt Rate 25 ml/min (>60); GFR (African American) 31 ML/MIN (>60); Hemoglobin 11.1 g/dL (14.1-18.0); Lymphocytes # 1.4 K/mm3 (0.7-4.5); Lymphocytes % 8.9 % (10-50); Mean Corpuscular HGB Conc 32.5 g/dL (31.8-35.4); Mean Corpuscular Hemoglobin 27.9 pg (27.0-31.2); Mean Corpuscular Volume 85.7 fl (80-94); Mean Platelet Volume 8.1 fl (7.4-10.4); Monocytes # 0.7 K/mm3 (0.1-1.0); Monocytes % 4.7 % (1.7-9.3); Neutrophils # 13.5 K/mm3 (1.8-7.8); Neutrophils % 86.3 % (37.0-80.0); Platelet Count 309 K/mm3 (142-424); Red Blood Count 3.97 M/mm3 (4.60-6.20); Red Cell Distribution Width 16.5 % (11.5-17.5); White Blood Count 15.6 K/mm3 (4.8-10.8)
[2023-05-16 06:32] LABS: Albumin/Globulin Ratio 1.3 (1.1-1.8); Alkaline Phosphatase 95 U/L (38-126); Anion Gap 12.4 mEq/L (5-15); Bilirubin,Total 0.5 mg/dl (0.2-1.3); Calcium 8.9 mg/dl (8.4-10.2); Carbon Dioxide 34 mmol/L (22.0-30.0); Globulin 3.2 g/dL (1.3-3.2); Glucose 134 mg/dl (74-100); Magnesium 2.2 mg/dl (1.6-2.3); Total Protein,Serum 7.2 g/dl (6.3-8.2)
[2023-05-16 06:40] VITALS: PULSE 60; PULSE 61; O2SAT 91
[2023-05-16 06:42] LABS: MANUAL DIFFERENTIAL MANUAL DIFFERENTIAL (MANUAL DIFF)
[2023-05-16] MEDS: FLUTICASONE/UMECLIDIN/VILANTER 100/62.5/25MCG INHALER 1 PUFF IH (06:42)
[2023-05-16 07:06] LABS: Hypochromasia 1+; Lymphocytes % 6 % (10-50); Microcytosis 1+; Monocytes % 3 % (2-9); Neutrophils % 91 % (42-76); Platelet Estimate Normal; Total Cells Counted 100
[2023-05-16 07:07] LABS: Anisocytosis 2+; Macrocytosis 1+
[2023-05-16 07:23] VITALS: BP 156/78; PULSE 70; RESP 20; TEMP 36.4; O2SAT 95
--- NOTE | 2023-05-16 08:26 | EXP.DC.SUM ---
General Admission date:: 05/14/23 Discharge date: 05/16/23 HPI HPI HPI: Mr. Eng is a 78-year-old male with history of heart failure, COPD, diabetes, hyperlipidemia, CKD, carotid artery stenosis, AAA, peripheral vascular disease. He presented to the ER via EMS because of increased cough and congestion that has been worsening over the past week. Normally wears 3 L at home. States he has been feeling more short of breath and dyspneic with exertion. Noticing some increased swelling in his legs. Still taking his medications at home as prescribed. Denies any chest pain. Cough is nonproductive. He feels that he has become more fatigued over the past week. As shortness of breath is worse overnight, especially last night with extreme worsening this morning on his 3 L nasal cannula. He was given DuoNebs in the ambulance and 125 mg of Solu-Medrol on his way to the ER. He denies any fever, chills, nausea, vomiting, diarrhea. In the ER, workup concerning for COPD exacerbation and CHF with elevated BNP. Creatinine 2.4 which is within the range of his baseline. White cell count of 11,000. Electrolytes normal with potassium of 4.3 and sodium 141. Medicine was consulted for admission and further management of his CHF and COPD exacerbations. On arrival to the floor, patient has significant edema in his legs. He sounds rhonchorous and crackly. Tolerating 3 L nasal cannula with sats in the low 90s. Appears dyspneic during interview. Hospital Course Hospital Course Hospital Course: Patient is a 78-year-old male with past medical history of COPD diabetes mellitus CHF, GERD hypertension hyperlipidemia who presented to hospital due to dyspnea. Discussed case with ER, request admission for CHF and COPD exacerbation. Medicine agreed to admit for further management. Patient responded to diuresis and antibiotics. Suspect symptoms predominantly from heart failure exacerbation compounding COPD. Stable for discharge home with close follow-up as an outpatient. Home health ordered at discharge. Problems addressed as follows: Acute on chronic hypoxemic respiratory failure: COPD -Continued supplemental oxygen for goal saturations greater 90%. Patient requiring 3 L through most of his hospitalization. Stable on his baseline oxygen at discharge. Initiated on steroids and antibiotics with doxycycline and prednisone. Will complete 5-day course total. White cell count mildly elevated at 15 on day of discharge, suspect secondary to steroid effect. Continue DuoNebs during admission. Resume home inhaler regimen at discharge. Heart failure with preserved ejection fraction Pulmonary hypertension HTN -BNP elevated 1050 on admission. Chart review showed echo from last visit with normal EF with mildly dilated RV and biatrial dilatation. Stress test performed showing reversible defect on Lexiscan. Taken for left heart cath, mild disease. No stents placed. Recommend continued medical management. Patient was monitored with strict I's and O's during admission. Diuresed aggressively with -4 L fluid balance during admission. Continued home propranolol and diltiazem. Continued hydralazine and aspirin. Transitioned diuretics to Bumex at time of discharge. Will continue 2 mg p.o. twice daily. Hyperlipidemia: Continue statin, goal LDL less than 100 CKD -Most recent creatinine has been between 2.2 and 2.5. His kidney function has remained at this level during admission with diuresis. Making adequate urine. Patient has been hesitant to see township clerk. Has a good understanding of his chronic kidney disease. No interest in dialysis at this time. Repeat CMP and magnesium in 1 week. Diabetes mellitus: A1c improved from last check, 7.3 this admission.. Given comorbidities, this is within ADA goal of less than 8. Continue home regimen at discharge. Gout: Continue 100 mg allopurinol daily GERD: Continue pantoprazole 40 mg nightly Neuropathy: Continue Lyrica 25 mg 3 times daily Stable for discharge home. Spent 30 minutes in discharge counseling, documentation, chart review, and direct care with patient. Exam Data for Last 24 hours Vital signs and Labs for Last 24 Hours: Temp Pulse Resp BP Pulse Ox O2 Del Method O2 Flow Rate 97.6 F 70 20 156/78 H 95 Nasal Cannula 3 05/16/23 07:23 05/16/23 07:23 05/16/23 07:23 05/16/23 07:23 05/16/23 07:23 05/16/23 07:23 05/16/23 07:23 FiO2 32 05/14/23 18:38 Laboratory Results - last 24 hr 05/14/23 16:29: POC Glucose 253 H 05/15/23 05:49: Total Counted 100, Neutrophils % (Manual) 91 H, Lymphocytes % (Manual) 6 L, Monocytes % (Manual) 3, Platelet Estimate Normal, RBC Morphology Normal 05/15/23 11:22: POC Glucose 220 H 05/15/23 17:00: POC Glucose 195 H 05/15/23 19:57: POC Glucose 273 H 05/16/23 05:58: WBC 15.6 H, RBC 3.97 L, Hgb 11.1 L, Hct 34.0 L, MCV 85.7, MCH 27.9, MCHC 32.5, RDW 16.5, Plt Count 309, MPV 8.1, Neut % (Auto) 86.3 H, Lymph % (Auto) 8.9 L, [place] % (Auto) 4.7, Eos % (Auto) 0.0 L, Baso % (Auto) 0.1, Neut # (Auto) 13.5 H, Lymph # (Auto) 1.4, [place] # (Auto) 0.7, Eos # (Auto) 0.0, Baso # (Auto) 0.0, Total Counted 100, Neutrophils % (Manual) 91 H, Lymphocytes % (Manual) 6 L, Monocytes % (Manual) 3, Platelet Estimate Normal, Hypochromasia 1+, Anisocytosis 2+, Microcytosis 1+, Macrocytosis 1+, Sodium 140, Potassium 4.4, Chloride 98, Carbon Dioxide 34 H, Anion Gap 12.4, BUN 71 H, Creatinine 2.50 H, Estimated Creat Clear 47, Estimated GFR 25 L, Est GFR ( Amer) 31 L, Glucose 134 H, POC Glucose 142 H, Calcium 8.9, Magnesium 2.2 D, Total Bilirubin 0.5, AST 34, ALT 34, Alkaline Phosphatase 95, Total Protein 7.2, Albumin 4.0, Globulin 3.2, Albumin/Globulin Ratio 1.3 I & O for Last 24 hours: Intake & Output 05/13/23 05/14/23 05/15/23 05/16/23 23:59 23:59 23:59 23:59 Intake Total 600 / 600 980 / 1285 845 / 845 Output Total 2850 / 3050 2400 / 2700 1100 / 1100 Balance -2250 / -2450 -1420 / -1415 -255 / -255 Weight 134.405 kg 131.5 kg 133.356 kg Constitutional Constitutional: no acute distress, morbidly obese and chronically ill appearing *Routine HEENT Exam Head: Present normocephalic and atraumatic ENT: Present mucous membranes moist *Routine Neck Exam Neck: Present supple, full ROM and normal carotid upstroke; Absent JVD, carotid bruit or lymphadenopathy *Routine Respiratory Exam Respiratory: Present normal respiratory effort and symmetric chest movement; Absent rhonchi, wheezes or crackles *Routine Cardiovascular Exam Cardiovascular: Present RRR, Normal S1 and Normal S2; Absent murmur or gallop *Routine Abdominal Exam Abdominal: Present soft and normoactive bowel sounds; Absent tenderness, distended or organomegaly *Routine Extremities Exam Extremities: Present edema (1+ bilateral lower extremity edema), full ROM, pulses intact and normal capillary refill; Absent cyanosis or clubbing Comments: chronic stasis changes *Routine Skin Exam Skin: Present intact and warm; Absent erythema *Routine Neurological Exam Neurological: Present alert, oriented X3 and CN II-XII intact; Absent sensory deficit or motor deficit Routine Psychiatric Exam Psychiatric: Present normal affect Results Data Completed and Pending Labs on day of discharge: Labs from last 24 hours 05/16/23 05/15/23 05/15/23 05:58 19:57 17:00 WBC 15.6 H RBC 3.97 L Hgb 11.1 L Hct 34.0 L MCV 85.7 MCH 27.9 MCHC 32.5 RDW 16.5 Plt Count 309 MPV 8.1 Neut % (Auto) 86.3 H Lymph % (Auto) 8.[address] [place] % (Auto) 4.7 Eos % (Auto) 0.0 L Baso % (Auto) 0.1 Neut # (Auto) 13.5 H Lymph # (Auto) 1.4 [place] # (Auto) 0.7 Eos # (Auto) 0.0 Baso # (Auto) 0.0 Total Counted 100 Neutrophils % (Manual) 91 H Lymphocytes % (Manual) 6 L Monocytes % (Manual) 3 Platelet Estimate Normal RBC Morphology Hypochromasia 1+ Anisocytosis 2+ Microcytosis 1+ Macrocytosis 1+ Sodium 140 Potassium 4.4 Chloride 98 Carbon Dioxide 34 H Anion Gap 12.4 BUN 71 H Creatinine 2.50 H Estimated Creat Clear 47 Estimated GFR 25 L Est GFR ( Amer) 31 L Glucose 134 H POC Glucose 142 H 273 H 195 H Calcium 8.9 Magnesium 2.2 D Total Bilirubin 0.5 AST 34 ALT 34 Alkaline Phosphatase 95 Total Protein 7.2 Albumin 4.0 Globulin 3.2 Albumin/Globulin Ratio 1.3 05/15/23 05/15/23 05/14/23 11:22 05:49 16:29 WBC RBC Hgb Hct MCV MCH MCHC RDW Plt Count MPV Neut % (Auto) Lymph % (Auto) [place] % (Auto) Eos % (Auto) Baso % (Auto) Neut # (Auto) Lymph # (Auto) [place] # (Auto) Eos # (Auto) Baso # (Auto) Total Counted 100 Neutrophils % (Manual) 91 H Lymphocytes % (Manual) 6 L Monocytes % (Manual) 3 Platelet Estimate Normal RBC Morphology Normal Hypochromasia Anisocytosis Microcytosis Macrocytosis Sodium Potassium Chloride Carbon Dioxide Anion Gap BUN Creatinine Estimated Creat Clear Estimated GFR Est GFR ( Amer) Glucose POC Glucose 220 H 253 H Calcium Magnesium Total Bilirubin AST ALT Alkaline Phosphatase Total Protein Albumin Globulin Albumin/Globulin Ratio DS: Diagnosis Discharge Diagnosis (1) Acute on chronic combined systolic (congestive) and diastolic (congestive) heart failure: Status: Acute Code(s): I50.43 - Acute on chronic combined systolic (congestive) and diastolic (congestive) heart failure (2) COPD (chronic obstructive pulmonary disease): Status: Acute Code(s): J44.9 - Chronic obstructive pulmonary disease, unspecified Qualifiers: COPD type: unspecified COPD Qualified Code(s): J44.9 - Chronic obstructive pulmonary disease, unspecified (3) CKD (chronic kidney disease): Status: Acute Code(s): N18.9 - Chronic kidney disease, unspecified Qualifiers: Chronic kidney disease stage: unspecified stage Qualified Code(s): N18.9 - Chronic kidney disease, unspecified (4) 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: Status: Acute Code(s): I25.10 - Atherosclerotic heart disease of tribal coronary artery without angina pectoris (5) (HFpEF) heart failure with preserved ejection fraction: Status: Acute Code(s): I50.30 - Unspecified diastolic (congestive) heart failure Qualifiers: Heart failure chronicity: acute on chronic Qualified Code(s): I50.33 - Acute on chronic diastolic (congestive) heart failure (6) Diabetes mellitus, type 2: Status: Chronic Code(s): E11.9 - Type 2 diabetes mellitus without complications Qualifiers: Diabetes mellitus complication status: without complication Diabetes mellitus extermination inspector insulin use: with extermination inspector use Qualified Code(s): E11.9 - Type 2 diabetes mellitus without complications; Z79.4 - MCFP (current) use of insulin (7) Abdominal aortic aneurysm (AAA): Status: Acute Code(s): I71.40 - Abdominal aortic aneurysm, without rupture, unspecified Qualifiers: Abdominal aorta location: unspecified Presence of rupture: without rupture Qualified Code(s): I71.40 - Abdominal aortic aneurysm, without rupture, unspecified (8) Hypertension: Status: Acute Code(s): I10 - Essential (primary) hypertension Qualifiers: Hypertension type: primary hypertension Qualified Code(s): I10 - Essential (primary) hypertension (9) Hyperlipidemia: Status: Acute Code(s): E78.5 - Hyperlipidemia, unspecified Qualifiers: Hyperlipidemia type: mixed hyperlipidemia Qualified Code(s): E78.2 - Mixed hyperlipidemia (10) Morbid obesity: Status: Chronic Code(s): E66.01 - Morbid (severe) obesity due to excess calories Meds Home Medications and Allergies Home Medications Medication Instructions Recorded Confirmed Type allopurinol 100 mg tablet 100 mg PO DAILY Gout 10/07/20 05/14/23 History ergocalciferol (vitamin D2) 1,250 50,000 unit PO WEEKLY Supplement 10/07/20 05/14/23 History mcg (50,000 unit) capsule insulin aspart U-100 100 unit/mL 20 units SQ TID Diabetes 10/07/20 05/14/23 History (3 mL) subcutaneous pen omeprazole 20 mg capsule,delayed 20 mg PO DAILY Acid Reflux 10/07/20 05/14/23 History release aspirin 81 mg chewable tablet 81 mg PO DAILY Heart Health 01/04/22 05/14/23 History atorvastatin 40 mg tablet 40 mg PO HS Cholesterol 01/04/22 05/14/23 History montelukast 10 mg tablet 10 mg PO PM Allergy Symptoms 01/04/22 05/14/23 History potassium chloride 10 mEq 10 meq PO DAILY Supplement 01/04/22 05/14/23 History tablet,extended release pregabalin 25 mg capsule 25 mg PO TID Pain 01/04/22 05/14/23 History fluticasone fur. 100 mcg-umeclid 1 inh inhalation DAILY Breathing 04/05/23 05/14/23 History 62.5 mcg-vilant 25 mcg Problems inhalat.powder (Trelegy Ellipta) hydralazine 50 mg tablet 50 mg PO TID High Blood Pressure 04/05/23 05/14/23 History insulin degludec 200 unit/mL (3 60 unit SQ BID Diabetes 04/05/23 05/14/23 History mL) subcutaneous pen (Tresiba FlexTouch U-200 insulin) levothyroxine 50 mcg tablet 50 mcg PO DAILY Thyroid 04/05/23 05/14/23 History propranolol 80 mg capsule,24 80 mg PO DAILY High Blood Pressure 04/05/23 05/14/23 History hr,extended release diltiazem HCl 240 mg capsule,24 240 mg PO DAILY 30 days #30 caps 04/10/23 05/14/23 Rx hr,extended release semaglutide 0.25 mg or 0.5 mg (2 0.25 mg (0.368 mL) SQ WEEKLY #3 mL 04/17/23 05/14/23 Rx mg/3 mL) subcutaneous pen injector (Ozempic) albuterol sulfate 2.5 mg/3 mL 2.5 mg inhalation QID 05/14/23 05/14/23 History (0.083 %) solution for nebulization albuterol sulfate 90 mcg/actuation 3 inh inhalation QID 05/14/23 05/14/23 History aerosol inhaler bumetanide 2 mg tablet 2 mg PO DAILY 30 days #30 tabs 05/16/23 Rx doxycycline hyclate 100 mg capsule 100 mg PO BID 4 days #7 caps 05/16/23 Rx prednisone 20 mg tablet 40 mg PO DAILY 2 days #4 tabs 05/16/23 Rx New Prescriptions to Start Prescriptions: Juan Abrams doxycycline hyclate Juan Goldman James Allergies Allergy/AdvReac Type Severity Reaction Status Date / Time latex [LATEX] Allergy Unknown Unknown Verified 04/17/23 14:20 allergy reaction Iodinated Contrast Media Allergy Unknown Verified 04/17/23 14:20 allergy reaction Discharge Plan Disposition Patient Disposition: Home Health Service Condition: Fair Discharge Order Discharge Orders: Discharge Order (Routine); Ordered 05/16/23 Ordered By: Juan Goldman Follow up Plan Follow up with: Eric Bell [Referring] - 05/28/23 2:00 pm Clayton Adams MD [Staff Physician] - 05/23/23 1:30 pm Prescriptions/Medication Reconciliation: New prednisone 20 mg Tablet 40 mg PO DAILY 2 Days Qty: 4 0RF doxycycline hyclate 100 mg capsule 100 mg PO BID 4 Days Qty: 7 0RF bumetanide 2 mg tablet 2 mg PO DAILY 30 Days Qty: 30 0RF Continued Ozempic 0.25 mg or 0.5 mg (2 mg/3 mL) pen injector 0.25 mg SQ WEEKLY Qty: 3 2RF Rx Instructions: for 4 weeks allopurinol 100 MG tablet 100 mg PO DAILY omeprazole 20 MG capsule,delayed release(DR/EC) 20 mg PO DAILY ergocalciferol (vitamin D2) 50,000 UNIT capsule 50,000 unit PO WEEKLY Patient Comments: TAKE 1 CAPSULE BY MOUTH ONE TIME PER WEEK insulin aspart U-100 100 UNIT/ML insulin pen 20 units SQ TID Patient Comments: SUBCUTANEOUS (INJECT UNDER THE SKIN) 10 UNITS 3 TIMES DAILY (BEFORE MEALS). levothyroxine 50 mcg tablet 50 mcg PO DAILY Patient Comments: TAKE 1 TABLET BY MOUTH DAILY. TAKE ON EMPTY STOMACH 30-45 MIN SEPARATE FROM OTHER FOOD/MEDICATIONS. Trelegy Ellipta 100-62.5-25 mcg blister with device 1 inh INHALATION DAILY Patient Comments: INHALE 1 PUFF INTO THE LUNGS ONCE DAILY. propranolol 80 mg capsule,extended release 24 hr 80 mg PO DAILY hydralazine 50 mg tablet 50 mg PO TID Patient Comments: TAKE 1 TABLET BY MOUTH 3 TIMES DAILY insulin degludec [Tresiba FlexTouch U-200] 200 unit/mL (3 mL) insulin pen 60 unit SQ BID diltiazem HCl 240 mg capsule,extended release 24 hr 240 mg PO DAILY 30 Days Qty: 30 0RF albuterol sulfate 2.5 mg /3 mL (0.083 %) solution for nebulization 2.5 mg inhalation QID Patient Comments: INHALE CONTENTS OF 1 VIAL (3 MLS) PER NEBULIZER EVERY 4 HOURS NEEDED FOR WHEEZING albuterol sulfate 90 mcg/actuation Hfa Aerosol Inhaler 3 inh INHALATION QID atorvastatin 40 MG tablet 40 mg PO HS potassium chloride 10 MEQ tablet extended release 10 meq PO DAILY aspirin 81 MG tablet,chewable 81 mg PO DAILY montelukast 10 MG tablet 10 mg PO PM pregabalin 25 MG capsule 25 mg PO TID Discontinued torsemide 20 mg tablet 20 mg PO BID Patient Comments: TAKE 1 TABLET BY MOUTH 2 TIMES DAILY. Problem Reconciliation Problems Reviewed?: Yes Patient Discharge Instructions ACTIVITY: Continue current activity DIET: continue same diet Patient Instructions: DI for Heart Failure, DI for Chronic Obstructive Pulmonary Disease Providers Primary Care Provider: Provider,Referral Admit Provider: Juan Goldman Attending Provider: Juan Goldman
[2023-05-16] MEDS: INSULIN GLARGINE 100 UNITS/ML 3ML FLEXPEN 55 UNIT SQ (09:14)
[2023-05-16] MEDS: DOXYCYCLINE HYCLATE 100 MG in 0.9 % SODIUM CHLORIDE 250 ML 166.667000000000002 MG IV (09:14)
[2023-05-16] MEDS: ASPIRIN 81MG CHEWABLE TABLET 81 MG PO (09:15)
[2023-05-16] MEDS: HYDRALAZINE HCL 25MG TABLET 50 MG PO (09:15)
[2023-05-16] MEDS: POTASSIUM CHLORIDE 10MEQ TABLET.ER 10 MEQ PO (09:15)
[2023-05-16] MEDS: BUMETANIDE 1MG/4ML VIAL 2 MG IV (09:15)
[2023-05-16] MEDS: dilTIAZem ER 240MG CAPSULE 240 MG PO (09:15)
[2023-05-16] MEDS: LEVOTHYROXINE 50MCG (0.05MG) TAB 50 MCG PO (09:15)
[2023-05-16] MEDS: ALLOPURINOL 100MG TABLET 100 MG PO (09:15)
[2023-05-16] MEDS: predniSONE 20MG TAB 40 MG PO (09:16)
[2023-05-16] MEDS: PROPRANOLOL 20MG TAB 20 MG PO (09:16)
[2023-05-16] MEDS: PREGABALIN 25MG CAPSULE 25 MG PO (09:17)
--- NOTE | 2023-05-16 09:41 | PC.NURSE ---
pt is up in chair this am. He is using the urinal independently. encouraged him to elevate his legs. 3lnc. pt denies SOA @ rest. will continue to monitor.
--- NOTE | 2023-05-16 10:45 | SW/DCPLANNER ---
Addendum entered by Palka Dodson 05/16/23 11:19: Deepika w/ [facility] stated that services will resume for this patient. Original Note: Patient is currently established w/ [facility]. Updated patient information/order to resume services will be faxed this AM. The plan for this patient is to discharge home w/ this afternoon.
--- NOTE | 2023-05-16 11:30 | PC.NURSE ---
Courtesy Round Patient awake sitting up in chair . Emptied trash ,linens,and urinal at this time. Refilled ice pitcher . Patient voiced no other needs at this time
--- NOTE | 2023-05-20 15:36 | CARE MANAGER ---
Spoke with patient's in regards to recent discharge. She states that he is doing well and had no concerns at time of call.
== END 2023-05-16 12:55 | disposition home health service (06) ==
LOC: ER 12:41 → 2ND 12:52
PROVIDERS: Admitting Provider Internal Medicine Adolescent Medicine; Emergency Provider Emergency Medicine; Visit Provider Internal Medicine Adolescent Medicine
DX: I50.43 Acute on chronic combined systolic (congestive) and diastolic (congestive) heart failure (principal); N18.9 Chronic kidney disease, unspecified; I25.10 Atherosclerotic heart disease of native coronary artery without angina pectoris; E11.22 Type 2 diabetes mellitus with diabetic chronic kidney disease; Z79.4 Long term (current) use of insulin; I71.40 Abdominal aortic aneurysm, without rupture, unspecified; E78.2 Mixed hyperlipidemia; I13.0 Hypertensive heart and chronic kidney disease with heart failure and stage 1 through stage 4 chronic kidney disease, or unspecified chronic kidney disease; E66.01 Morbid (severe) obesity due to excess calories; J43.9 Emphysema, unspecified; I65.29 Occlusion and stenosis of unspecified carotid artery; E11.51 Type 2 diabetes mellitus with diabetic peripheral angiopathy without gangrene; G47.33 Obstructive sleep apnea (adult) (pediatric); Z99.81 Dependence on supplemental oxygen; I27.20 Pulmonary hypertension, unspecified; M19.90 Unspecified osteoarthritis, unspecified site; Z86.73 Personal history of transient ischemic attack (TIA), and cerebral infarction without residual deficits; Z85.828 Personal history of other malignant neoplasm of skin; M10.9 Gout, unspecified
CPT/HCPCS: 36415; 71045; 80053; 82803; 82962; 83036; 83605; 83735; 83880; 84484; 85007; 85025; 87636; 93005; 94640; 94760; 94761; 99285; G0378

== ENCOUNTER → 2023-05-23 12:53 | Outpatient (CLI) | payer MEDICARE, SELFPAY ==
[2023-05-23 13:23] LABS: Chloride 96 mmol/L (98-107); Potassium 3.6 mmoL/L (3.5-5.1); Sodium 138 mmol/L (136-145)
[2023-05-23 13:26] LABS: Anion Gap 13.6 mEq/L (5-15); Carbon Dioxide 32 mmol/L (22.0-30.0); Estimated Glomerular Filt Rate 25 ml/min (>60); GFR (African American) 31 ML/MIN (>60)
[2023-05-23 13:27] LABS: Calcium 8.9 mg/dl (8.4-10.2); Glucose 80 mg/dl (74-100)
[2023-05-23 13:43] LABS: Blood Urea Nitrogen 93 mg/dl (9-20)
== END ==
PROVIDERS: PCP Family Medicine; Visit Provider Physician Assistant
DX: I25.10 Atherosclerotic heart disease of native coronary artery without angina pectoris (principal); N18.9 Chronic kidney disease, unspecified; Z87.891 Personal history of nicotine dependence
CPT/HCPCS: 36415; 80048

== ENCOUNTER 2023-06-12 03:09 | Observation (INO) | payer MEDICARE, SELFPAY ==
[2023-06-12] VITALS (12 sets, daily range): BP systolic 128–181; BP diastolic 67–77; PULSE 65–96; RESP 18–26; TEMP 36.5–36.8; O2SAT 90–96; BMI 39.2
--- NOTE | 2023-06-12 03:12 | XR_ITS ---
PROCEDURE INFORMATION: Exam: XR Chest Exam date and time: 06/12/2023 3:22 AM Age: 78 years old Clinical indication: Shortness of breath; Additional info: Worsening SOA, chf, copd TECHNIQUE: Imaging protocol: Radiologic exam of the chest. Views: 1 view. COMPARISON: 1. CR XR CHEST PORTABLE 05/14/2023 10:[address] CHEST W CON 04/05/2023 9:39 AM FINDINGS: Tubes, catheters and devices: Monitor leads project over the chest. Lungs: Low lung volumes with chronic lingular and bibasilar atelectasis or scarring. Pleural spaces: No significant costophrenic angle blunting. No pneumothorax. Heart/Mediastinum: Heart size appears prominent but is likely exaggerated by the portable AP technique. Vasculature: Ectatic, tortuous and calcified thoracic aorta. Bones/joints: No acute osseous abnormality. Soft tissues: Large body habitus. IMPRESSION: Low lung volumes with chronic lingular and bibasilar atelectasis or scarring. Possible superimposed retrocardiac left basilar pneumonia cannot be excluded.
[2023-06-12 03:19] LABS: Coronavirus 19, PCR Not Detected (NotDetected); Influenza A, PCR Not Detected (NotDetected); Influenza B, PCR Not Detected (NotDetected)
--- NOTE | 2023-06-12 03:24 | HMH.EDGENADL ---
Discharge Plan Disposition Patient Disposition: Admitted Condition: Good Chief Complaint: Extremity Problem,Nontraumatic Clinical Impressions Clinical Impression: Acute on chronic combined systolic (congestive) and diastolic (congestive) heart failure, Hypertension, Diabetes mellitus, type 2 Respiratory failure with hypoxia and hypercapnia Qualifiers: Chronicity: acute on chronic Qualified Code(s): J96.21 - Acute and chronic respiratory failure with hypoxia Discharge ED Provider: Chester Eugene Adult HPI General Chief complaint: Extremity Problem,Nontraumatic Stated complaint: CHF Time Seen by Provider: 06/12/23 03:11 History of Present Illness HPI narrative: 78-year-old male with extensive past medical history presents with worsening shortness of breath and swelling at home. He was told by the home health nurse yesterday that he needed to come to the hospital because he was doing worse. He did not come in yesterday. Tonight he was feeling more short of breath and so decided to come in. He denies any fevers at home. He denies any worsening cough. He reports he is not peeing as much. He is a very poor historian. Normal vital signs en route with EMS. Related Data Home Medications Medication Instructions Recorded Confirmed ergocalciferol (vitamin D2) 1,250 50,000 unit PO WEEKLY Supplement 10/07/20 06/12/23 mcg (50,000 unit) capsule insulin aspart U-100 100 unit/mL 20 units SQ TID Diabetes 10/07/20 06/12/23 (3 mL) subcutaneous pen omeprazole 20 mg capsule,delayed 20 mg PO DAILY Acid Reflux 10/07/20 06/12/23 release aspirin 81 mg chewable tablet 81 mg PO DAILY Heart Health 01/04/22 06/12/23 montelukast 10 mg tablet 10 mg PO PM Allergy Symptoms 01/04/22 06/12/23 potassium chloride 10 mEq 10 meq PO DAILY Supplement 01/04/22 06/12/23 tablet,extended release pregabalin 25 mg capsule 25 mg PO TID Pain 01/04/22 06/12/23 fluticasone fur. 100 mcg-umeclid 1 inh inhalation DAILY Breathing 04/05/23 06/12/23 62.5 mcg-vilant 25 mcg Problems inhalat.powder (Trelegy Ellipta) hydralazine 50 mg tablet 50 mg PO TID High Blood Pressure 04/05/23 06/12/23 insulin degludec 200 unit/mL (3 60 unit SQ BID Diabetes 04/05/23 06/12/23 mL) subcutaneous pen (Tresiba FlexTouch U-200 insulin) levothyroxine 50 mcg tablet 50 mcg PO DAILY Thyroid 04/05/23 06/12/23 propranolol 80 mg capsule,24 80 mg PO DAILY High Blood Pressure 04/05/23 06/12/23 hr,extended release albuterol sulfate 2.5 mg/3 mL 2.5 mg inhalation QID 05/14/23 06/12/23 (0.083 %) solution for nebulization albuterol sulfate 90 mcg/actuation 3 inh inhalation QID 05/14/23 06/12/23 aerosol inhaler torsemide 20 mg tablet 20 mg PO BID 06/12/23 06/12/23 Previous Rx's Medication Instructions Recorded diltiazem HCl 240 mg capsule,24 240 mg PO DAILY 30 days #30 caps 04/10/23 hr,extended release semaglutide 0.25 mg or 0.5 mg (2 0.25 mg (0.368 mL) SQ WEEKLY #3 mL 04/17/23 mg/3 mL) subcutaneous pen injector (Ozempic) bumetanide 2 mg tablet 2 mg PO DAILY 30 days #30 tabs 05/16/23 Allergies Allergy/AdvReac Type Severity Reaction Status Date / Time latex [LATEX] Allergy Unknown Unknown Verified 04/17/23 14:20 allergy reaction Iodinated Contrast Media Allergy Unknown Verified 04/17/23 14:20 allergy reaction PFSH [facility] Disclaimer: The information contained in this section may have been updated after the patient was seen, as this information can be updated by other users. Medical History (HFpEF) heart failure with preserved ejection fraction Abdominal aortic aneurysm (AAA) Abnormal cardiovascular stress test Abnormal electrocardiogram [ECG] [EKG] Allergies Arthritis Atypical angina CAD in [place] artery Cataract Cellulitis Congestive heart failure COPD (chronic obstructive pulmonary disease) Diabetes mellitus, type 2 Edema History of cataract History of COVID-19 History of gastroesophageal reflux (GERD) History of stroke Hyperkalemia Hyperlipidemia Hypertension Pneumonia Pulmonary hypertension Skin cancer Sleep apnea Stenosis of carotid artery Surgical History History of cholecystectomy History of colonoscopy History of knee replacement History of left hip replacement Family History No significant family history Social History Smoking Status: Former smoker alcohol intake: former current occupational status: retired Travel in the last 8 weeks: None household members: spouse housing: house caffeine: Yes ROS Obtained: Yes All systems reviewed & no additional complaints except as documented Physical Exam General General appearance: alert and in no apparent distress Head Head exam: atraumatic and normocephalic Eye Eye exam: Present normal appearance, PERRL and EOMI ENT ENT exam: Present normal oropharynx and normal external ear exam Neck Neck exam: Present normal inspection and full ROM Chest Chest inspection: Present normal inspection and symmetric chest wall rise; Absent tenderness Respiratory Respiratory exam: Present other (Decreased breath sounds in the posterior lung joyce, no significant wheezing or rhonchi noted. Mild dyspnea noted.) Cardiovascular Cardiovascular exam: Present regular rate and normal rhythm Abdominal Exam Abdominal exam: Present soft and distention; Absent tenderness or guarding Extremities Exam Extremities exam: Present edema (Marked bilateral lower extremity edema with chronic venous stasis changes noted) Back Exam Back exam: Present normal inspection; Absent tenderness Neurological Exam Neurological exam: Present alert and oriented X3; Absent motor sensory deficit Psychiatric Psychiatric exam: Present normal affect and normal mood Skin Skin exam: Present warm, dry and normal color Lymphatic Lymphatic Findings: no adenopathy Medical Decision Making Medical Records Medical records reviewed: Yes I reviewed the patient's medical records. Jefry Inquiry Pt receiving controlled substance: No Jefry was queried for this patient: No Vital Signs: 06/12/23 03:09 06/12/23 04:11 06/12/23 04:12 Temperature 98.2 F Temperature Source Oral Pulse Rate 68 66 Pulse Rate [Radial] 68 Respiratory Rate 23 Blood Pressure [Right Arm] 130/77 Blood Pressure Mean [Right Arm] 94 Blood Pressure Source [Right Arm] Automatic Cuff Blood Pressure Position [Right Arm] Sitting 02 Sat by Pulse Oximetry 90 L Oxygen Delivery Method Nasal Cannula Lab Data Lab results reviewed: Yes I reviewed the patient's lab results. Lab Results 06/12/23 03:15: VBG pH 7.33, VBG pCO2 63.2 H, VBG pO2 62.0 H, VBG HCO3 32.9 H, VBG Total CO2 34.8 H, VBG O2 Saturation 89.8 H, VBG Base Excess 7.0 H, SARS-CoV-2 (PCR) Not detected, Influenza A Untype (PCR) Not detected, Influenza Type B (PCR) Not detected 06/12/23 03:18: WBC 11.2 H, RBC 4.06 L, Hgb 11.2 L, Hct 34.8 L, MCV 85.6, MCH 27.6, MCHC 32.3, RDW 17.1, Plt Count 275, MPV 8.5, Neut % (Auto) 77.5, Lymph % (Auto) 12.3, [place] % (Auto) 7.5, Eos % (Auto) 1.9, Baso % (Auto) 0.7, Neut # (Auto) 8.7 H, Lymph # (Auto) 1.4, [place] # (Auto) 0.8, Eos # (Auto) 0.2, Baso # (Auto) 0.1, Sodium 139, Potassium 4.1, Chloride 98, Carbon Dioxide 35 H, Anion Gap 10.1, BUN 54 H, Creatinine 2.20 H, Estimated Creat Clear 53, Estimated GFR 29 L, Est GFR ( Amer) 35 L, Glucose 61 L, Calcium 9.3, Magnesium 2.1, Total Bilirubin 0.7, AST 35, ALT 25, Alkaline Phosphatase 106, Troponin I 0.03, NT-Pro-B Natriuret Pep 2220 H, Total Protein 7.2, Albumin 3.7, Globulin 3.5 H, Albumin/Globulin Ratio 1.1 06/12/23 03:34: Urine Color Yellow, Urine Appearance Clear, Urine pH 5.5, Ur Specific [place] 1.020, Urine Protein 1+, Urine Glucose (UA) Negative, Urine Ketones Negative, Urine Blood Negative, Urine Nitrate Negative, Urine Bilirubin Negative, Urine Urobilinogen 0.2, Ur Leukocyte Esterase Negative, Urine RBC None, Urine WBC None, Ur Squamous Epith Cells Occasional, Urine Bacteria Trace, Hyaline Casts Occasional 06/12/23 03:18 06/12/23 03:18 Orders (Tests/Meds): ED MEDICATIONS Discontinued Medications Generic Name Dose Route Start Last Admin Trade Name Freq PRN Reason Stop Dose Admin Albuterol/Ipratropium 3 ml 06/12/23 03:12 06/12/23 04:08 Ipratropium/Albuterol 3 Ml Neb IH 06/12/23 03:13 3 ml ONCE ONE Administration Furosemide 100 mg 06/12/23 03:30 06/12/23 03:31 Furosemide 100mg/10ml Vial IV 06/12/23 03:31 100 mg ONCE ONE Administration ORDERS Category Date Time Status CXR --portable [XR chest portable] Stat Exams 06/12/23 03:12 Taken BNP [Brain Natriuretic Peptide] Stat Lab 06/12/23 03:18 Completed CBC w/Auto Diff [Complete Blood Count Auto Diff] Stat Lab 06/12/23 03:18 Completed CMP [Comprehensive Metabolic Panel] Stat Lab 06/12/23 03:18 Completed Magnesium Stat Lab 06/12/23 03:18 Completed Rapid PCR Covid and Flu A/B Stat Lab 06/12/23 03:15 Completed Troponin I Q3H Lab 06/12/23 03:18 Completed Troponin I Q3H Lab 06/12/23 06:15 Ordered UA [Urinalysis and Microscopic] Stat Lab 06/12/23 03:34 Completed VBG [Venous Blood Gas] Stat RT 06/12/23 03:15 Completed ECG initial [place] Routine Y 06/12/23 03:35 Completed HEART Score History (anamnesis): Slightly suspicious ECG: Non-specific disturbance Age: >65 years Risk factors: Atherosclerosis history Troponin: </= normal limit HEART Score: 5 Medical Decision Narrative: 78-year-old male, presentation complicated by history of COPD on 3 L nasal cannula baseline, insulin-dependent diabetes, CHF, coronary artery disease, CKD presents with worsening shortness of breath, lower extremity swelling and debility at home.. History was obtained via conversation with EMS, patient, chart review. On arrival, patient is afebrile, hemodynamically stable, requiring 4 L nasal cannula to maintain sats greater than 90 (normally on 3 per report), moving all extremities spontaneously. Full physical exam performed and significant for marked bilateral lower extremity edema with chronic venous stasis changes noted. Decreased breath sounds bilaterally without wheezing or rhonchi. Differential includes but is not limited to CHF exacerbation, COPD, pneumonia, renal dysfunction, ACS. Patient was given 100 mg of IV Lasix, IV DuoNebs for symptomatic management and correction of underlying abnormalities. Workup initiated including CBC CMP troponin BNP UA chest x-ray EKG. On re-evaluation, patient [remains afebrile, HD stable.] Lung sounds unchanged after DuoNebs Laboratory workup independently interpreted by me and significant for initial troponin within normal limits, BNP elevated at 2200, renal function improved from baseline, no significant electrolyte derangement, white count improved from previous.. Imaging independently interpreted by me and significant for trace right pleural effusion, moderate left pleural effusion, bilateral pulmonary edema. See radiology read for full review of final results. EKG independently interpreted by me and significant for sinus rhythm, rate of 86, QRS widening at 150, EKG appears similar to prior. Steroids and antibiotics for COPD exacerbation was considered, but deemed unnecessary as patient's presentation is most consistent with CHF exacerbation. Given patient history, exam and workup, patient's presentation most likely represents CHF exacerbation. Interactive discussion had with hospitalist on-call who agreed to admit the patient for further evaluation management.. Procedures Risk/Benefits of Procedure(s) Were Explained: Yes Critical Care Critical Care Time Critical Care Time: No
[2023-06-12 03:26] LABS: VBG HCO3 32.9 mmol/L (23-30); VBG Oxygen Saturation 89.8 % (50-70); VBG PCO2 63.2 mmol/L (35-51); VBG PH 7.33 mmol/L (7.31-7.41); VBG Total CO2 34.8 mmol/L (23-27)
[2023-06-12] MEDS: FUROSEMIDE 100MG/10ML VIAL 100 MG IV (03:31)
[2023-06-12 03:33] LABS: Magnesium 2.1 mg/dl (1.6-2.3)
--- NOTE | 2023-06-12 03:35 | ECG_ITS ---
APPROVED REPORT Exam: Resting ECG HR:68 bpm ECG Measurements Heart Rate 68 AXES MT 186 P -44 QRSd 150 QRS -61 QT 434 T 74 QTc 450 Conclusion SINUS RHYTHM INTRAVENTRICULAR CONDUCTION DELAY [130+ ms QRS DURATION] LEFT VENTRICULAR HYPERTROPHY AND ST-T CHANGE [VOLTAGE CRITERIA PLUS ST/T ABNORMALITY] INFERIOR MYOCARDIAL INFARCTION , OF INDETERMINATE AGE [40+ ms Q WAVE AND/OR ST/T ABNORMALITY IN II/aVF] ANTEROLATERAL MYOCARDIAL INFARCTION , OF INDETERMINATE AGE [40+ ms Q WAVE IN I/aVL/V3-V6] ABNORMAL ECG UNCONFIRMED REPORT Electronically signed by : Collins Muñoz MD 06/12/2023 13:08:15
[2023-06-12 03:41] LABS: Microscopic, Urine URINE MICROSCOPIC (MICROSCOPIC)
[2023-06-12 03:43] LABS: NT Pro Brain Natriuretic Pep. 2220 pg/mL (0-450)
[2023-06-12 03:45] LABS: Appearance,Urine CLEAR (Clear); Bilirubin,Urine Negative (Negative); Blood, Urine Negative (Negative); Color,Urine YELLOW (Yellow); Glucose,Urine (UA) Negative (Negative); Ketones,Urine Negative (Negative); Leukocyte Esterase,Urine Negative (Negative); Nitrate,Urine Negative (Negative); PH,Urine 5.5 (5.0-8.5); Protein,Urine 1+ (Negative); Urobilinogen,Urine 0.2 EU/dl (0.2)
[2023-06-12 03:46] LABS: Troponin I 0.03 ng/ml (0.00-0.034)
[2023-06-12 04:03] LABS: Bacteria,Urine Trace /lpf; Hyaline Casts,Urine Occasional #/lpf (0); Squamous Epithelial Cell,Urine Occasional #/hpf (0-5)
[2023-06-12] MEDS: IPRATROPIUM/ALBUTEROL 3 ML NEB IH ×4 (04:08→23:17)
[2023-06-12 04:35] LABS: Basophils # 0.1 K/mm3 (0-0.2); Basophils % 0.7 % (0.1-2.0); Eosinophils # 0.2 K/mm3 (0.0-0.4); Eosinophils % 1.9 % (0.1-12.0); Hematocrit 34.8 % (42.0-52.0); Hemoglobin 11.2 g/dL (14.1-18.0); Lymphocytes # 1.4 K/mm3 (0.7-4.5); Lymphocytes % 12.3 % (10-50); Mean Corpuscular HGB Conc 32.3 g/dL (31.8-35.4); Mean Corpuscular Hemoglobin 27.6 pg (27.0-31.2); Mean Corpuscular Volume 85.6 fl (80-94); Mean Platelet Volume 8.5 fl (7.4-10.4); Monocytes # 0.8 K/mm3 (0.1-1.0); Monocytes % 7.5 % (1.7-9.3); Neutrophils # 8.7 K/mm3 (1.8-7.8); Neutrophils % 77.5 % (37.0-80.0); Platelet Count 275 K/mm3 (142-424); Red Blood Count 4.06 M/mm3 (4.60-6.20); Red Cell Distribution Width 17.1 % (11.5-17.5); White Blood Count 11.2 K/mm3 (4.8-10.8)
[2023-06-12 04:36] LABS: Chloride 98 mmol/L (98-107); Potassium 4.1 mmoL/L (3.5-5.1); Sodium 139 mmol/L (136-145)
[2023-06-12 04:38] LABS: Alanine Aminotransferase 25 U/L (12-78); Aspartate Amino Transferase 35 U/L (17-59); Blood Urea Nitrogen 54 mg/dl (9-20); Creatinine Clearance Estimated 53 mL/min (50-200); Estimated Glomerular Filt Rate 29 ml/min (>60); GFR (African American) 35 ML/MIN (>60)
[2023-06-12 04:39] LABS: Albumin Level 3.7 g/dl (3.5-5.0); Albumin/Globulin Ratio 1.1 (1.1-1.8); Alkaline Phosphatase 106 U/L (38-126); Anion Gap 10.1 mEq/L (5-15); Bilirubin,Total 0.7 mg/dl (0.2-1.3); Calcium 9.3 mg/dl (8.4-10.2); Carbon Dioxide 35 mmol/L (22.0-30.0); Globulin 3.5 g/dL (1.3-3.2); Glucose 61 mg/dl (74-100); Total Protein,Serum 7.2 g/dl (6.3-8.2)
--- NOTE | 2023-06-12 05:20 | P.HP_ITS ---
History of Present Illness *Admission Date: 06/12/23 *Reason for visit:: Shortness of breath *History of present illness: This is a chronically ill 78-year-old male with past medical history of COPD, hypertension, pulmonary hypertension, CKD, HLD, DM, GERD who presents to the emergency department with complaints of shortness of breath. He states that he has had decreasing energy over the last several days with an increase in shortness of breath. He was told by his home health nurse to come to the emergency department yesterday but refused and stated that tonight he became more short of breath so he decided to come in. He denies cough or fever. Reports that he is not urinating as much is normal. Emergency department workup significant for CHF exacerbation with BNP of 2220. Chest x-ray with notable cardiomegaly. Pulmonary edema noted. He currently is on home 4 L nasal cannula. He received IV Lasix in the emergency department and admitted to the hospital service for further evaluation management. [facility] Disclaimer: The information contained in this section may have been updated after the patient was seen, as this information can be updated by other users. Medical History (HFpEF) heart failure with preserved ejection fraction Abdominal aortic aneurysm (AAA) Abnormal cardiovascular stress test Abnormal electrocardiogram [ECG] [EKG] Allergies Arthritis Atypical angina CAD in [place] artery Cataract Cellulitis Congestive heart failure COPD (chronic obstructive pulmonary disease) Diabetes mellitus, type 2 Edema History of cataract History of COVID-19 History of gastroesophageal reflux (GERD) History of stroke Hyperkalemia Hyperlipidemia Hypertension Pneumonia Pulmonary hypertension Skin cancer Sleep apnea Stenosis of carotid artery Surgical History History of cholecystectomy History of colonoscopy History of knee replacement History of left hip replacement Family History Other No significant family history Social History Smoking Status: Former smoker alcohol intake: former current occupational status: retired Travel in the last 8 weeks: None household members: spouse housing: house caffeine: Yes Review of Systems Review of Systems Review of systems:: unable to obtain Review of systems (narrative): Patient is a poor historian but does endorse shortness of breath and bilateral lower extremity edema Meds Home Medications and Allergies Home Medications Medication Instructions Recorded Confirmed Type ergocalciferol (vitamin D2) 1,250 50,000 unit PO WEEKLY 10/07/20 06/12/23 H istory mcg (50,000 unit) capsule insulin aspart U-100 100 unit/mL 30 units SQ TIDWMEAL 10/07/20 06/12/23 History (3 mL) subcutaneous pen omeprazole 20 mg capsule,delayed 20 mg PO DAILY 10/07/20 06/12/23 History release aspirin 81 mg chewable tablet 81 mg PO DAILY 01/04/22 06/12/23 History montelukast 10 mg tablet 10 mg PO HS 01/04/22 06/12/23 History potassium chloride 10 mEq 10 meq PO DAILY 01/04/22 06/12/23 History tablet,extended release pregabalin 25 mg capsule 25 mg PO TID 01/04/22 06/12/23 History fluticasone fur. 100 mcg-umeclid 1 inh inhalation AM 04/05/23 06/12/23 History 62.5 mcg-vilant 25 mcg inhalat.powder (Trelegy Ellipta) hydralazine 50 mg tablet 50 mg PO TID 04/05/23 06/12/23 History insulin degludec 200 unit/mL (3 50 unit SQ BID 04/05/23 06/12/23 History mL) subcutaneous pen (Tresiba FlexTouch U-200 insulin) levothyroxine 50 mcg tablet 50 mcg PO AM 04/05/23 06/12/23 History propranolol 80 mg capsule,24 80 mg PO DAILY 04/05/23 06/12/23 History hr,extended release diltiazem HCl 240 mg capsule,24 240 mg PO DAILY 30 days #30 caps 04/10/23 06/12/23 Rx hr,extended release semaglutide 0.25 mg or 0.5 mg (2 0.25 mg (0.368 mL) SQ WEEKLY #3 mL 04/17/23 06/12/23 Rx mg/3 mL) subcutaneous pen injector (Ozempic) albuterol sulfate 2.5 mg/3 mL 2.5 mg inhalation Q4HP PRN Wheezing 05/14/2306/03 History (0.083 %) solution for nebulization albuterol sulfate 90 mcg/actuation 2 puff inhalation Q6HP PRN Wheezing 05/14/23 06/12/23 History aerosol inhaler (Proventil HFA) bumetanide 2 mg tablet 2 mg PO DAILY 30 days #30 tabs 05/16/23 06/12/23 Rx allopurinol 100 mg tablet 100 mg PO DAILY 06/12/23 06/12/23 History atorvastatin 40 mg tablet 40 mg PO HS 06/12/23 06/12/23 History guaifenesin 600 mg tablet, 600 mg PO BID 06/12/23 06/12/23 History extended release 12 hr New Prescriptions to Start Prescriptions: Allergies Allergy/AdvReac Type Severity Reaction Status Date / Time latex [LATEX] Allergy Unknown Unknown Verified 04/17/23 14:20 allergy reaction Iodinated Contrast Media Allergy Unknown Verified 04/17/23 14:20 allergy reaction Exam Data for Last 24 hours Vital signs and Labs for Last 24 Hours: Temp Pulse Resp BP Pulse Ox O2 Del Method O2 Flow Rate 98.2 F 65 26 H 157/73 H 90 L Nasal Cannula 4 06/12/23 05:16 06/12/23 05:16 06/12/23 05:16 06/12/23 05:16 06/12/23 03:09 06/12/23 05:16 06/12/23 05:16 FiO2 90 06/12/23 03:09 Laboratory Results - last 24 hr 06/12/23 03:15: VBG pH 7.33, VBG pCO2 63.2 H, VBG pO2 62.0 H, VBG HCO3 32.9 H, VBG Total CO2 34.8 H, VBG O2 Saturation 89.8 H, VBG Base Excess 7.0 H, SARS-CoV-2 (PCR) Not detected, Influenza A Untype (PCR) Not detected, Influenza Type B (PCR) Not detected 06/12/23 03:18: WBC 11.2 H, RBC 4.06 L, Hgb 11.2 L, Hct 34.8 L, MCV 85.6, MCH 27.6, MCHC 32.3, RDW 17.1, Plt Count 275, MPV 8.5, Neut % (Auto) 77.5, Lymph % (Auto) 12.3, [place] % (Auto) 7.5, Eos % (Auto) 1.9, Baso % (Auto) 0.7, Neut # (Auto) 8.7 H, Lymph # (Auto) 1.4, [place] # (Auto) 0.8, Eos # (Auto) 0.2, Baso # (Auto) 0.1, Sodium 139, Potassium 4.1, Chloride 98, Carbon Dioxide 35 H, Anion Gap 10.1, BUN 54 H, Creatinine 2.20 H, Estimated Creat Clear 53, Estimated GFR 29 L, Est GFR ( Amer) 35 L, Glucose 61 L, Calcium 9.3, Magnesium 2.1, T otal Bilirubin 0.7, AST 35, ALT 25, Alkaline Phosphatase 106, Troponin I 0.03, NT-Pro-B Natriuret Pep 2220 H, Total Protein 7.2, Albumin 3.7, Globulin 3.5 H, Albumin/Globulin Ratio 1.1 06/12/23 03:34: Urine Color Yellow, Urine Appearance Clear, Urine pH 5.5, Ur Specific [place] 1.020, Urine Protein 1+, Urine Glucose (UA) Negative, Urine Ketones Negative, Urine Blood Negative, Urine Nitrate Negative, Urine Bilirubin Negative, Urine Urobilinogen 0.2, Ur Leukocyte Esterase Negative, Urine RBC None, Urine WBC None, Ur Squamous Epith Cells Occasional, Urine Bacteria Trace, Hyaline Casts Occasional I & O for Last 24 hours: Intake & Output 06/09/23 06/10/23 06/11/23 06/12/23 23:59 23:59 23:59 23:59 Weight 131.088 kg Constitutional Constitutional: mild distress *Routine HEENT Exam Head: Present normocephalic and atraumatic Eye: Present EOMI and PERRL ENT: Present mucous membranes moist *Routine Neck Exam Neck: Present supple and full ROM *Routine Respiratory Exam Respiratory: Present normal respiratory effort *Routine Cardiovascular Exam Cardiovascular: Present RRR, Normal S1 and Normal S2 Comments: Bilateral lower extremity edema *Routine Abdominal Exam Abdominal: Present obese *Routine Rectal Exam Rectal:: deferred *Routine Genitalia Exam Genitalia:: deferred *Routine Extremities Exam Extremities: Present full ROM and pulses intact *Routine Skin Exam Comments: PVD/PAD skin coloring to bilateral lower extremities *Routine Neurological Exam Neurological: Present alert and oriented X3 Assessment and Plan *Assessment and plan (1) Acute on chronic combined systolic (congestive) and diastolic (congestive) heart failure: Status: Acute Category: Medical Code(s): I50.43 - Acute on chronic combined systolic (congestive) and diastolic (congestive) heart failure (2) COPD (chronic obstructive pulmonary disease): Status: Acute Qualifiers: COPD type: unspecified COPD Qualified Code(s): J44.9 - Chronic obstructive pulmonary disease, unspecified Category: Medical Code(s): J44.9 - Chronic obstructive pulmonary disease, unspecified (3) Diabetes mellitus, type 2: Status: Chronic Category: Medical Code(s): E11.9 - Type 2 diabetes mellitus without complications (4) Hyperlipidemia: Status: Acute Qualifiers: Hyperlipidemia type: mixed hyperlipidemia Qualified Code(s): E78.2 - Mixed hyperlipidemia Category: Medical Code(s): E78.5 - Hyperlipidemia, unspecified (5) Hypertension: Status: Acute Category: Medical Code(s): I10 - Essential (primary) hypertension (6) Pulmonary hypertension: Status: Chronic Category: Medical Code(s): I27.20 - Pulmonary hypertension, unspecified (7) Morbid obesity: Status: Chronic Category: Medical Code(s): E66.01 - Morbid (severe) obesity due to excess calories (8) CKD (chronic kidney disease): Status: Acute Qualifiers: Chronic kidney disease stage: unspecified stage Qualified Code(s): N18.9 - Chronic kidney disease, unspecified Category: Medical Code(s): N18.9 - Chronic kidney disease, unspecified Plan Case discussed with ER physician, request admission. Patient needs further diuresis. Medicine agreed to admit. Cardiology consulted to assist with care. Problems addressed as follows: Acute on chronic combined systolic and diastolic heart failure Elevated BNP of 2200. Volume overloaded on exam. Received 100 mg of IV Lasix in the emergency department Will transition back to 2 mg of Bumex twice daily per prior hospitalization with good results Monitor intake and output Prior echocardiogram with normal EF with mildly dilated RV and biatrial dilatation with preserved ejection fraction CKD Creatinine today of 2.2 with a baseline of 2.5 Continues to make urine. On prior hospitalization, was hesitant to follow-up with nephrology Monitor renal function and strict intake and output T2DM Hypoglycemic on arrival to the 50s. Received oral replacement Continue sliding scale insulin with mealtime insulin and long-acting insulin. Close monitoring of glucose to prevent hypoglycemia Hypertension Continue home hydralazine, propranolol, diltiazem Chronic obstructive pulmonary disease with exacerbation Continue supplemental O2 to oxygen saturations greater than 88% Mild wheezing noted, on patient's home 4 L nasal cannula Continue bronchodilators Continue prednisone Morbid obesity Complicates all aspects of care DVT PPx SQH Full Code Rounded on patient after nurse practitioner. Personally examined and interviewed patient. Agree with exam findings and care plan as documented. Responding to diuresis. Still requiring 4 L nasal cannula oxygen. PT and OT evaluating patient for possible placement. Cards assisting with care.
[2023-06-12 07:54] LABS: Adenovirus,PCR Not Detected (NotDetected); Coronavirus 19, PCR Not Detected (NotDetected); Coronavirus 229E Not Detected (NotDetected); Coronavirus NL63 Not Detected (NotDetected); Coronavirus OC43 Not Detected (NotDetected); Coronovirus HKU1,PCR Not Detected (NotDetected); Human Metapneumovirus Not Detected (NotDetected); Influenza A, PCR Not Detected (NotDetected); Influenza AH1, 2009 Not Detected (NotDetected); Influenza AH1, PCR Not Detected (NotDetected); Influenza AH3,PCR Not Detected (NotDetected); Influenza B, PCR Not Detected (NotDetected); Parainfluenza 1, PCR Not Detected (NotDetected); Parainfluenza 2, PCR Not Detected (NotDetected); Parainfluenza 3, PCR Not Detected (NotDetected); Parainfluenza 4, PCR Not Detected (NotDetected); Respiratory Syncytial Virus Not Detected (NotDetected); Rhinovirus/Enterovirus Not Detected (NotDetected)
[2023-06-12 08:00] LABS: Troponin I 0.03 ng/ml (0.00-0.034)
--- NOTE | 2023-06-12 08:24 | PC.WOUNDNOTE ---
scrotum Right leg Left leg
[2023-06-12] MEDS: ASPIRIN 81MG CHEWABLE TABLET 81 MG PO (09:04)
[2023-06-12] MEDS: HYDRALAZINE HCL 25MG TABLET 50 MG PO ×3 (09:04→20:24)
[2023-06-12] MEDS: PROPRANOLOL 20MG TAB 40 MG PO ×2 (09:04→20:24)
[2023-06-12] MEDS: dilTIAZem ER 120MG CAPSULE 240 MG PO (09:05)
[2023-06-12] MEDS: FLUTICASONE/UMECLIDIN/VILANTER 100/62.5/25MCG INHALER 1 PUFF IH (09:05)
[2023-06-12] MEDS: DOCUSATE SODIUM 100 MG CAPSULE PO (09:05)
[2023-06-12] MEDS: BUMETANIDE 1MG/4ML VIAL 2 MG IV ×2 (09:05→15:47)
[2023-06-12] MEDS: LEVOTHYROXINE 50MCG (0.05MG) TAB 50 MCG PO (09:06)
[2023-06-12] MEDS: PREGABALIN 25MG CAPSULE 25 MG PO ×3 (09:08→20:24)
--- NOTE | 2023-06-12 10:21 | HMH.PHAINT1 ---
Pharmacy Intervention Comments: Home med list verified with external pharmacy list and current med list sent from physician's office.
--- NOTE | 2023-06-12 10:35 | HMH.OTEV ---
OT Inpatient Evaluation Rehab OT IP Evaluation Start: 06/12/23 07:27 Freq: ONCE Status: Active Protocol: Document 06/12/23 10:17 ILEANA (Rec: 06/12/23 10:34 ILEANA [id number]) Rehab OT IP Assessment Subjective History This is a chronically ill 78- year-old male with past medical history of COPD, hypertension, pulmonary hypertension, CKD, HLD, DM, GERD who presents to the emergency department with complaints of shortness of breath. He states that he has had decreasing energy over the last several days with an increase in shortness of breath. He was told by his home health nurse to come to the emergency department yesterday but refused and stated that tonight he became more short of breath so he decided to come in. He denies cough or fever. Reports that he is not urinating as much is normal. Per patient's statement, he lives alone with family assistance as needed. Patient stated to use RW to ambulate. Subjective I need to use the restroom. Instructed Patient on proper hand and foot placement to participate in bed mobility of supine->sit @ EOB requiring Mod A. Instructed Patient on SPT from EOB->BSC with usage of RW with MOd A. Objective Patient Orientation Person,Name,Age,Birthday,Year Right Upper Extremity Gross ROM WFL Left Upper Extremity Gross ROM WFL Bed Mobility bed mobility - supine/sit Assist Level Moderate x 1 (50% assist) Transfer Training Sit/Stand/Pivot Transfer Assist Level Minimal x 2 (25% assist) Chair Transfer Ability Minimal x 2 (25% assist) Chair Transfer Technique Stand Pivot Chair Transfer Assistive Devices Rolling Walker Lower Body Dressing Ability Maximum Assistance Rehab OT IP prob,goals,plan Problems Date of Evaluation: 06/12/23 OT IP Problems Bed Mobility,Transfers,Balance ,Self care,Safety Rehab Potential Rehab Potential Good Equipment Needs Assistive Devices Rolling / Wheeled Walker Plan OT intervention Plan Bed Mobility,Transfers,Balance ,Self care,Safety,Therapeutic Exercise OT Plan Frequency Daily Duration LOS Discharge Goals Bed Mobility Ability Assistance x1 Sit to Stand Chair Transfer Ability Moderate x 1 (50% assist) Chair Transfer Ability Moderate x 1 (50% assist) Chair Transfer Technique Sit to/from Ambulatory Chair Transfer Assistive Devices Rolling Walker Lower Body Dressing Ability Moderate Assistance Overall Commode/Toilet Transfer Ability Moderate Assistance Commode/Toilet Transfer Technique Sit to/from Ambulatory Discharge Plan OT Discharge Plan Recommend placement at this time. Patient will need 24/7 for ADLs and fx'l mobility. Patient to continue skilled OT IP services til proper medical d/c. Eval Complexity Eval Charge Codes 69346 - Low Complexity PHYSICIAN CERTIFICATION: I certify the specified therapy services for Shawn Eng are required, authorized, and reviewed every 30 days.
[2023-06-12 11:25] LABS: POC Glucose,Bedside 90 (70-110)
--- NOTE | 2023-06-12 11:39 | HMH.PTEV ---
Physical Therapy Evaluation Rehab PT IP Evaluation Start: 06/12/23 07:27 Freq: ONCE Status: Active Protocol: Document 06/12/23 09:05 JUANITA (Rec: 06/12/23 11:39 JUANITA [id number]) Subjective/History History History 78 yowm adm to [facility] with heart failure. He has PMH of COPD, HTN, pulm HTN, CKD, HLD, and DM. He reports he lives alone, but has assistance on a daily basis with all of his ADLs. He reports he uses a RW at all times for mobility and has no JOSÉ the home. Subjective Subjective Pt presents asleep, supine in bed, and is easily arousable. He agrees to mobility assessment this am. New diagnosis of cancer in past 12 No months? Rehab PT IP Eval Objective Appearance Patient Behavior Appropriate Patient Orientation Person,Place,Time Difficulty following instructions none Speech Pattern Clear Ambulation Patient Able to Ambulate Yes Ambulation Observation IP General Gait Pattern Observation Wide Based Gait,Shuffling Step Ambulation Distance (feet) 5 Ambulation Assistive Device Rolling Walker Ambulation Ability Minimal x 2 (25% assist) Balance Ability to Arise Able, uses arms to help Sitting Balance Leans or slides in chair Standing Balance Steady, wide stance Dynamic Sitting Balance Ability Fair Dynamic Standing Balance Ability Fair Transfers Bed Transfer Ability Moderate x 1 (50% assist) Chair Transfer Ability Minimal x 2 (25% assist) Sit to Stand Bed Transfer Ability Minimal x 2 (25% assist) Sit to Stand Chair Transfer Ability Minimal x 2 (25% assist) Rehab PT IP prob,goals,plan Problems Date of Evaluation: 06/12/23 PT IP Problems Bed Mobility,Transfers,Gait Rehab Potential Rehab Potential Good Plan PT Intervention Plan Bed Mobility,Transfers,Gait, Therapeutic Exercise PT Plan Frequency Daily Discharge Goals Bed Transfer Ability Minimal x 1 (25% assist) Sit to Stand Chair Transfer Ability Minimal x 1 (25% assist) Ambulation Assistive Device Rolling Walker Ambulation Distance (feet) 20 Discharge Plan PT Discharge Plan Pt is currently most appropriate for rehab placement once medically stable for d/c. Skille dintervention is needed to prevent debility, injury, falls, and wounds. Eval Complexity Eval Charge Codes 05225 - High Complexity PHYSICIAN CERTIFICATION: I certify the specified therapy services for Shawn W Velasquez are required, authorized, and reviewed every 30 days.
--- NOTE | 2023-06-12 11:44 | HMH.PTWOUND ---
Rehab Inpt Wound Evaluation Rehab IP Wound Evaluation Start: 06/12/23 05:59 Freq: ONCE Status: Active Protocol: Document 06/12/23 09:05 JUANITA (Rec: 06/12/23 11:44 PHORIN [id number]) Rehab PT Wound Assessment Subjective Subjective 78 yowm adm to [facility] with Heart Failure. PMH of COPD, HTN, HLD , PULM HTN, CKD, DM. Wound consult placed with orders for Bilateral legs. He currently has no open sores noted. Significant erythema to B lower legs, R worse than L, and increased papillomatosis due to chronic edema. Plan/Recommendation Comment Currently no wound care needs at this time. He may benefit from outpatient treatment for his chronic edema. However, this is most likely related to poorly controlled heart failure, and will be difficult to treat at best. Eval Complexity Eval Charge Codes 18684 - High Complexity PHYSICIAN CERTIFICATION: I certify the specified therapy services for Shawn Eng are required, authorized, and reviewed every 30 days.
[2023-06-12 12:03] LABS: POC Glucose,Bedside 132 (70-110)
--- NOTE | 2023-06-12 13:45 | EXP.CARD.CON ---
History of Present Illness History of Present Illness Consult date: 06/12/23 Requesting physician: Juan Goldman Consult reason: congestive heart failure Chief complaint: SOB History of present illness: This is a 78-year-old white gentleman who presented to the emergency department with complaints of shortness of breath. He has a past medical history of CAD, congestive heart failure, chronic kidney disease, hypertension, hyperlipidemia, and diabetes. The patient states that he has been having decreasing energy levels for the last several days with increased shortness of breath. The patient states that he was profoundly short of breath even at rest and it got significantly worse when he exerted himself. It does improve with rest but does not completely resolve. He states that he was evaluated by his home health nurse and she instructed him to come to the emergency department a few days ago but he refused. Then his symptoms worsened and he decided to go to the emergency department last night. He denies a cough or fever associated with the shortness of breath. He does have some lower extremity edema. He denies any chest pain or pressure. He denies any fever, chills, nausea, vomiting or diarrhea. He does have associated orthopnea as well. In the emergency department his BNP was elevated and his chest x-ray showed pulmonary edema. The patient was given IV Lasix in the emergency department with improvement in his symptoms. [facility] Disclaimer: The information contained in this section may have been updated after the patient was seen, as this information can be updated by other users. Medical History (HFpEF) heart failure with preserved ejection fraction Abdominal aortic aneurysm (AAA) Abnormal cardiovascular stress test Abnormal electrocardiogram [ECG] [EKG] Allergies Arthritis Atypical angina CAD in [place] artery Cataract Cellulitis Congestive heart failure COPD (chronic obstructive pulmonary disease) Diabetes mellitus, type 2 Edema History of cataract History of COVID-19 History of gastroesophageal reflux (GERD) History of stroke Hyperkalemia Hyperlipidemia Hypertension Pneumonia Pulmonary hypertension Skin cancer Sleep apnea Stenosis of carotid artery Surgical History History of cholecystectomy History of colonoscopy History of knee replacement History of left hip replacement Family History Other No significant family history Social History Smoking Status: Former smoker alcohol intake: former current occupational status: retired Travel in the last 8 weeks: None household members: spouse housing: house caffeine: Yes Review of Systems Review of Systems Review of systems:: pertinent systems reviewed and negative unless documented below Constitutional Constitutional: Reports system reviewed and no additional complaints, except as documented, Reports fatigue, Reports lethargy and Reports weakness Eyes Eyes: Reports system reviewed and no additional complaints, except as documented ENT Ears, Nose, Mouth, and Throat: Reports system reviewed and no additional complaints, except as documented *Cardiovascular Cardiovascular: Reports system reviewed and no additional complaints, except as documented, Denies chest pain, Reports dyspnea, Reports dyspnea on exertion and Reports orthopnea *Respiratory Respiratory: Reports system reviewed and no additional complaints, except as documented, Reports dyspnea and Reports dyspnea on exertion *Gastrointestinal Gastrointestinal: Reports system reviewed and no additional complaints, except as documented *Genitourinary Genitourinary: Reports system reviewed and no additional complaints, except as documented *Musculoskeletal Musculoskeletal: Reports system reviewed and no additional complaints, except as documented Integumentary/Breasts Skin/Breast: Reports system reviewed and no additional complaints, except as documented *Neurologic Neurologic: Reports system reviewed and no additional complaints, except as documented and Reports weakness Psychiatric Psychiatric: Reports system reviewed and no additional complaints, except as documented Endocrine Endocrine: Reports system reviewed and no additional complaints, except as documented and Reports fatigue Hematologic/Lymphatic Hematologic/Lymphatic: Reports system reviewed and no additional complaints, except as documented Allergic/Immunologic Allergic/Immunologic: Reports system reviewed and no additional complaints, except as documented Exam Data for Last 24 hours Vital signs and Labs for Last 24 Hours: Temp Pulse Resp BP Pulse Ox O2 Del Method O2 Flow Rate 97.7 F 69 18 181/77 H 93 L Nasal Cannula 4 06/12/23 11:17 06/12/23 11:17 06/12/23 11:17 06/12/23 11:17 06/12/23 11:17 06/12/23 12:45 06/12/23 11:17 FiO2 90 06/12/23 03:09 Laboratory Results - last 24 hr 06/12/23 03:15: VBG pH 7.33, VBG pCO2 63.2 H, VBG pO2 62.0 H, VBG HCO3 32.9 H, VBG Total CO2 34.8 H, VBG O2 Saturation 89.8 H, VBG Base Excess 7.0 H, Chlamy pneumoniae PCR TNP, Adenovirus (PCR) Not detected, B. pertussis DNA (PCR) TNP, Coronavirus OC43 (PCR) Not detected, Coronavirus HKU1 (PCR) Not detected, Coronavirus 229E (PCR) Not detected, SARS-CoV-2 (PCR) Not detected 06/12/23 03:15: SARS-CoV-2 (PCR) Not detected, Coronavirus NL63 (PCR) Not detected, Human Metapneumovir PCR Not detected, Influenza A (H1) PCR Not detected, Influ A (H1N1/09) PCR Not detected, Influenza A (H3) PCR Not detected, Influenza Type A (PCR) Not detected, Influenza A Untype (PCR) Not detected, Influenza Type B (PCR) Not detected 06/12/23 03:15: Influenza Type B (PCR) Not detected, M. pneumoniae (PCR) TNP, Parainfluenza 1 (PCR) Not detected, Parainfluenza 2 (PCR) Not detected, Parainfluenza 3 (PCR) Not detected, Parainfluenza 4 (PCR) Not detected, RSV (PCR) Not detected, Entero/Rhino (PCR) Not detected 06/12/23 03:18: WBC 11.2 H, RBC 4.06 L, Hgb 11.2 L, Hct 34.8 L, MCV 85.6, MCH 27.6, MCHC 32.3, RDW 17.1, Plt Count 275, MPV 8.5, Neut % (Auto) 77.5, Lymph % (Auto) 12.3, Williamson % (Auto) 7.5, Eos % (Auto) 1.9, Baso % (Auto) 0.7, Neut # (Auto) 8.7 H, Lymph # (Auto) 1.4, Williamson # (Auto) 0.8, Eos # (Auto) 0.2, Baso # (Auto) 0.1, Sodium 139, Potassium 4.1, Chloride 98, Carbon Dioxide 35 H, Anion Gap 10.1, BUN 54 H, Creatinine 2.20 H, Estimated Creat Clear 53, Estimated GFR 29 L, Est GFR ( Amer) 35 L, Glucose 61 L, Calcium 9.3, Magnesium 2.1, Total Bilirubin 0.7, AST 35, ALT 25, Alkaline Phosphatase 106, Troponin I 0.03, NT-Pro-B Natriuret Pep 2220 H, Total Protein 7.2, Albumin 3.7, Globulin 3.5 H, Albumin/Globulin Ratio 1.1 06/12/23 03:34: Urine Color Yellow, Urine Appearance Clear, Urine pH 5.5, Ur Specific [place] 1.020, Urine Protein 1+, Urine Glucose (UA) Negative, Urine Ketones Negative, Urine Blood Negative, Urine Nitrate Negative, Urine Bilirubin Negative, Urine Urobilinogen 0.2, Ur Leukocyte Esterase Negative, Urine RBC None, Urine WBC None, Ur Squamous Epith Cells Occasional, Urine Bacteria Trace, Hyaline Casts Occasional 06/12/23 05:34: POC Glucose 90 06/12/23 06:15: Troponin I 0.03 06/12/23 11:47: POC Glucose 132 H I & O for Last 24 hours: Intake & Output 06/09/23 06/10/23 06/11/23 06/12/23 23:59 23:59 23:59 23:59 Intake Total 710 / 710 Output Total 1550 / 1550 Balance -840 / -840 Weight 289 lb Constitutional Constitutional: no acute distress and obese *Routine HEENT Exam Head: Present normocephalic and atraumatic ENT: Present mucous membranes moist *Routine Neck Exam Neck: Present supple, full ROM and normal carotid upstroke; Absent JVD, carotid bruit or lymphadenopathy *Routine Respiratory Exam Respiratory: Present rales, wheezes, normal respiratory effort and symmetric chest movement *Routine Cardiovascular Exam Cardiovascular: Present RRR, Normal S1 and Normal S2; Absent murmur or gallop *Routine Abdominal Exam Abdominal: Present soft and normoactive bowel sounds; Absent tenderness, distended or organomegaly *Routine Extremities Exam Extremities: Present edema (4+ BLE), full ROM, pulses intact and normal capillary refill; Absent cyanosis or clubbing *Routine Skin Exam Skin: Present intact and warm; Absent erythema *Routine Neurological Exam Neurological: Present alert, oriented X3 and CN II-XII intact; Absent sensory deficit or motor deficit Routine Psychiatric Exam Psychiatric: Present normal affect Meds Home Medications and Allergies Home Medications Medication Instructions Recorded Confirmed Type ergocalciferol (vitamin D2) 1,250 50,000 unit PO WEEKLY 10/07/20 06/12/23 History mcg (50,000 unit) capsule insulin aspart U-100 100 unit/mL 30 units SQ TIDWMEAL 10/07/20 06/12/23 History (3 mL) subcutaneous pen omeprazole 20 mg capsule,delayed 20 mg PO DAILY 10/07/20 06/12/23 History release aspirin 81 mg chewable tablet 81 mg PO DAILY 01/04/22 06/12/23 History montelukast 10 mg tablet 10 mg PO HS 01/04/22 06/12/23 History potassium chloride 10 mEq 10 meq PO DAILY 01/04/22 06/12/23 History tablet,extended release pregabalin 25 mg capsule 25 mg PO TID 01/04/22 06/12/23 History fluticasone fur. 100 mcg-umeclid 1 inh inhalation AM 04/05/23 06/12/23 History 62.5 mcg-vilant 25 mcg inhalat.powder (Trelegy Ellipta) hydralazine 50 mg tablet 50 mg PO TID 04/05/23 06/12/23 History insulin degludec 200 unit/mL (3 50 unit SQ BID 04/05/23 06/12/23 History mL) subcutaneous pen (Tresiba FlexTouch U-200 insulin) levothyroxine 50 mcg tablet 50 mcg PO AM 04/05/23 06/12/23 History propranolol 80 mg capsule,24 80 mg PO DAILY 04/05/23 06/12/23 History hr,extended release diltiazem HCl 240 mg capsule,24 240 mg PO DAILY 30 days #30 caps 04/10/23 06/12/23 Rx hr,extended release semaglutide 0.25 mg or 0.5 mg (2 0.25 mg (0.368 mL) SQ WEEKLY #3 mL 04/17/23 06/12/23 Rx mg/3 mL) subcutaneous pen injector (Ozempic) albuterol sulfate 2.5 mg/3 mL 2.5 mg inhalation Q4HP PRN Wheezing 05/14/23 06/12/23 History (0.083 %) solution for nebulization albuterol sulfate 90 mcg/actuation 2 puff inhalation Q6HP PRN Wheezing 05/14/23 06/12/23 History aerosol inhaler (Proventil HFA) bumetanide 2 mg tablet 2 mg PO DAILY 30 days #30 tabs 05/16/23 06/12/23 Rx allopurinol 100 mg tablet 100 mg PO DAILY 06/12/23 06/12/23 History atorvastatin 40 mg tablet 40 mg PO HS 06/12/23 06/12/23 History guaifenesin 600 mg tablet, 600 mg PO BID 06/12/23 06/12/23 History extended release 12 hr New Prescriptions to Start Prescriptions: Allergies Allergy/AdvReac Type Severity Reaction Status Date / Time latex [LATEX] Allergy Unknown Unknown Verified 04/17/23 14:20 allergy reaction Iodinated Contrast Media Allergy Unknown Verified 04/17/23 14:20 allergy reaction Assessment and Plan *Assessment and plan (1) (HFpEF) heart failure with preserved ejection fraction: Status: Acute Qualifiers: Heart failure chronicity: acute on chronic Qualified Code(s): I50.33 - Acute on chronic diastolic (congestive) heart failure Category: Medical Code(s): I50.30 - Unspecified diastolic (congestive) heart failure (2) CAD in [place] artery: Status: Acute Category: Medical Code(s): I25.10 - Atherosclerotic heart disease of [place] coronary artery without angina pectoris (3) CKD (chronic kidney disease): Status: Acute Qualifiers: Chronic kidney disease stage: unspecified stage Qualified Code(s): N18.9 - Chronic kidney disease, unspecified Category: Medical Code(s): N18.9 - Chronic kidney disease, unspecified (4) Lung nodule: Status: Acute Category: Medical Code(s): R91.1 - Solitary pulmonary nodule (5) Respiratory failure with hypoxia and hypercapnia: Status: Acute Qualifiers: Chronicity: acute on chronic Qualified Code(s): J96.21 - Acute and chronic respiratory failure with hypoxia; J96.22 - Acute and chronic respiratory failure with hypercapnia Category: Medical Code(s): J96.91 - Respiratory failure, unspecified with hypoxia; J96.92 - Respiratory failure, unspecified with hypercapnia (6) Hypertension: Status: Acute Qualifiers: Hypertension type: primary hypertension Qualified Code(s): I10 - Essential (primary) hypertension Category: Medical Code(s): I10 - Essential (primary) hypertension (7) Hyperlipidemia: Status: Acute Qualifiers: Hyperlipidemia type: mixed hyperlipidemia Qualified Code(s): E78.2 - Mixed hyperlipidemia Category: Medical Code(s): E78.5 - Hyperlipidemia, unspecified (8) Diabetes mellitus, type 2: Status: Chronic Qualifiers: Diabetes mellitus complication status: without complication Diabetes mellitus director long term care insulin use: with director long term care use Qualified Code(s): E11.9 - Type 2 diabetes mellitus without complications; Z79.4 - director long term care (current) use of insulin Category: Medical Code(s): E11.9 - Type 2 diabetes mellitus without complications (9) COPD (chronic obstructive pulmonary disease): Status: Acute Qualifiers: COPD type: unspecified COPD Qualified Code(s): J44.9 - Chronic obstructive pulmonary disease, unspecified Category: Medical Code(s): J44.9 - Chronic obstructive pulmonary disease, unspecified (10) Stenosis of carotid artery: Status: Acute Qualifiers: Laterality: bilateral Qualified Code(s): I65.23 - Occlusion and stenosis of bilateral carotid arteries Category: Medical Code(s): I65.29 - Occlusion and stenosis of unspecified carotid artery (11) Pulmonary hypertension: Status: Chronic Category: Medical Code(s): I27.20 - Pulmonary hypertension, unspecified Plan Plan: 1. The patient was admitted to the hospital with HFpEF. The patient will need aggressive diuresis. Will give him Bumex 2 mg IV twice daily. We do anticipate that he will need to go home on higher doses of his Bumex. 2. The patient was also listed as taking torsemide at home. He should not be on both Bumex and torsemide but we do not think he was taking the torsemide at home. 3. However, medical noncompliance is highly suspicious in this patient we have had a long discussion with the patient about being compliant with his medications 4. No DIEGO or ARB or Entresto due to his renal function. 5. No Farxiga or Jardiance due to his renal function 6. Continue propranolol for HFpEF. 7. His blood pressure is well-controlled. Continue hydralazine and diltiazem. However we may consider adjusting the dose of his hydralazine as taking a medicine 3 times a day is hard for the patient to be compliant with. 8. His LDL goal is less than 55. He is on a statin. 9. The patient does have a history of mild nonocclusive CAD. This is likely stable. No plans for invasive left cardiac catheterization at this time. 10. The patient does have chronic kidney disease. His creatinine is 2.2. Will continue to follow this closely. 11. Further recommendations will be made pending the patient's response to treatment. Thank you for the opportunity to help participate in the care of this patient. All recommendations and orders are per Dr. Adams.
--- NOTE | 2023-06-12 14:59 | SW/DCPLANNER ---
Addendum entered by Palak Dodson 06/14/23 12:55: Per Lynsey Alejo patient has been approved SNF level of care. I have updated patient's , MD and nursing staff. Per MD patient will discharge today. Addendum entered by Palak Dodson 06/13/23 14:43: Lynsey Alejo stated that precert has been started on this patient. Original Note: I spoke w/ this patient regarding discharge plans. PT/OT evaluated patient and recommended SNF level of care. I spoke w/ patient about [facility] due to patient residing in [place]. Patient is agreeable for information to be faxed Wilton Alejo: I will follow up w/ Wilton Alejo once information is reviewed. Discharge date is unknown at this time. I will also call and update patient's family.
--- NOTE | 2023-06-12 15:59 | PC.NURSE ---
PT IS RESTING IN BED. NO COMPLAINTS OF DISCOMFORT. PT ANSWERS QUESTIONS AND FOLLOWS COMMANDS. IV ACCESS NOTED TO THE NARENDRA (MIDLINE). LUNG SOUNDS DIMINISHED WITH SCATTERED WHEEZES/RHONCHI. ABDOMEN LARGE/SOFT WITH ACTIVE BOWEL SOUNDS. PT WAS A 2 ASSIST TO GET UP TO THE BSC THIS SHIFT. MODERATE BOWEL MOVEMENT. PT HAS VOIDED OVER 2 L THIS SHIFT. REDNESS NOTED TO THE SCROTUM AND BUTTOCKS. REDNESS/SWELLING NOTED TO BLE. WILL CONTINUE TO MONITOR.
[2023-06-12 16:01] LABS: POC Glucose,Bedside 148 (70-110)
[2023-06-12] MEDS: MONTELUKAST SODIUM 10MG TAB 10 MG PO (17:58)
[2023-06-12 19:49] LABS: POC Glucose,Bedside 184 (70-110)
[2023-06-12] MEDS: humaLOG 100 UNITS/ML 3ML VIAL (SSI) SQ (20:25)
--- NOTE | 2023-06-12 21:22 | PC.NURSE ---
o2 dropped to 83% on 3L NC while sleeping. increased oxygen to 4L NC with O2 at 93%.
[2023-06-13] VITALS (11 sets, daily range): BP systolic 106–159; BP diastolic 48–72; PULSE 50–79; RESP 16–21; TEMP 36.4–37.1; O2SAT 91–96; BMI 40.8
[2023-06-13] MEDS: IPRATROPIUM/ALBUTEROL 3 ML NEB IH ×4 (05:56→23:08)
[2023-06-13] MEDS: FLUTICASONE/UMECLIDIN/VILANTER 100/62.5/25MCG INHALER 1 PUFF IH (05:56)
[2023-06-13] MEDS: LEVOTHYROXINE 50MCG (0.05MG) TAB 50 MCG PO (07:05)
[2023-06-13 07:08] LABS: POC Glucose,Bedside 57 (70-110)
[2023-06-13 08:03] LABS: Basophils % 0.3 % (0.1-2.0); Blood Urea Nitrogen 55 mg/dl (9-20); Calcium 8.5 mg/dl (8.4-10.2); Chloride 94 mmol/L (98-107); Creatinine Clearance Estimated 58 mL/min (50-200); Eosinophils # 0.2 K/mm3 (0.0-0.4); Eosinophils % 2.4 % (0.1-12.0); Estimated Glomerular Filt Rate 31 ml/min (>60); GFR (African American) 37 ML/MIN (>60); Hematocrit 31.4 % (42.0-52.0); Hemoglobin 10.1 g/dL (14.1-18.0); Lymphocytes # 1.4 K/mm3 (0.7-4.5); Lymphocytes % 16.5 % (10-50); Mean Corpuscular HGB Conc 32.2 g/dL (31.8-35.4); Mean Corpuscular Hemoglobin 27.2 pg (27.0-31.2); Mean Corpuscular Volume 84.4 fl (80-94); Mean Platelet Volume 7.8 fl (7.4-10.4); Monocytes # 0.7 K/mm3 (0.1-1.0); Monocytes % 7.6 % (1.7-9.3); Neutrophils # 6.2 K/mm3 (1.8-7.8); Neutrophils % 73.2 % (37.0-80.0); Platelet Count 257 K/mm3 (142-424); Potassium 3.7 mmoL/L (3.5-5.1); Red Blood Count 3.71 M/mm3 (4.60-6.20); Red Cell Distribution Width 17.1 % (11.5-17.5); Sodium 137 mmol/L (136-145); White Blood Count 8.5 K/mm3 (4.8-10.8)
[2023-06-13 08:11] LABS: Anion Gap 9.7 mEq/L (5-15); Carbon Dioxide 37 mmol/L (22.0-30.0)
[2023-06-13 08:26] LABS: Glucose 48 mg/dl (74-100)
[2023-06-13] MEDS: dilTIAZem ER 120MG CAPSULE 240 MG PO (09:32)
[2023-06-13] MEDS: HYDRALAZINE HCL 25MG TABLET 50 MG PO ×3 (09:32→20:23)
[2023-06-13] MEDS: DOCUSATE SODIUM 100 MG CAPSULE PO (09:32)
[2023-06-13] MEDS: PROPRANOLOL 20MG TAB 40 MG PO ×2 (09:32→20:30)
[2023-06-13] MEDS: ASPIRIN 81MG CHEWABLE TABLET 81 MG PO (09:33)
[2023-06-13] MEDS: BUMETANIDE 1MG/4ML VIAL 2 MG IV ×2 (09:33→15:47)
[2023-06-13] MEDS: LEVOFLOXACIN/D5W 750 MG/150 ML 750 MG/150 ML PIGGYBACK 100 MG IV (09:33)
[2023-06-13] MEDS: PREGABALIN 25MG CAPSULE 25 MG PO ×3 (09:34→20:31)
[2023-06-13] MEDS: ISOSORBIDE MONO 60MG TAB.ER.24H 60 MG PO (11:07)
[2023-06-13 11:14] LABS: POC Glucose,Bedside 191 (70-110)
--- NOTE | 2023-06-13 13:54 | P.PN_ITS ---
Subjective Subjective Date: 06/13/23 Time: 11:30 Principal diagnosis: Shortness of breath, HFpEF Interval history: 8 gentleman who presented to the emergency department complaints of shortness of breath. He was admitted for an acute exacerbation of HFpEF. The patient is getting diuresed with IV Lasix. He did have a -2300 fluid balance overnight. The patient states that he really has not had a significant change in his shortness of breath but he does report that his bilateral lower extremity edema has improved. He states that he is able to move his toes whereas his legs were so tight prior to this that he was unable to do that. He denies any chest pain or pressure. He denies any fever, chills, nausea, vomiting, diarrhea. He does have associated orthopnea with his shortness of breath still. Exam Data for Last 24 hours Vital signs and Labs for Last 24 Hours: Temp Pulse Resp BP Pulse Ox O2 Del Method O2 Flow Rate 97.9 F 68 20 135/67 94 L Nasal Cannula 4 06/13/23 11:57 06/13/23 11:57 06/13/23 11:57 06/13/23 11:57 06/13/23 11:57 06/13/23 12:42 06/13/23 12:42 FiO2 90 06/12/23 03:09 Laboratory Results - last 24 hr 06/12/23 15:52: POC Glucose 148 H 06/12/23 19:41: POC Glucose 184 H 06/13/23 07:00: WBC 8.5, RBC 3.71 L, Hgb 10.1 L, Hct 31.4 L, MCV 84.4, MCH 27.2, MCHC 32.2, RDW 17.1, Plt Count 257, MPV 7.8, Neut % (Auto) 73.2, Lymph % (Auto) 16.5, [place] % (Auto) 7.6, Eos % (Auto) 2.4, Baso % (Auto) 0.3, Neut # (Auto) 6.2, Lymph # (Auto) 1.4, [place] # (Auto) 0.7, Eos # (Auto) 0.2, Baso # (Auto) 0.0, Sodium 137, Potassium 3.7, Chloride 94 L, Carbon Dioxide 37 H, Anion Gap 9.7, BUN 55 H, Creatinine 2.10 H, Estimated Creat Clear 58, Estimated GFR 31 L, Est GFR ( Amer) 37 L, Glucose 48 L, Calcium 8.5 06/13/23 07:01: POC Glucose 57 L 06/13/23 11:08: POC Glucose 191 H I & O for Last 24 hours: Intake & Output 06/10/23 06/11/23 06/12/23 06/13/23 23:59 23:59 23:59 23:59 Intake Total 1300 / 1300 1046 / 1046 Output Total 3600 / 3600 775 / 775 Balance -2300 / -2300 271 / 271 Weight 289 lb 301 lb 5.95 oz Constitutional Constitutional: no acute distress and obese *Routine HEENT Exam Head: Present normocephalic and atraumatic ENT: Present mucous membranes moist *Routine Neck Exam Neck: Present supple, full ROM and normal carotid upstroke; Absent JVD, carotid bruit or lymphadenopathy *Routine Respiratory Exam Respiratory: Present rales, wheezes, normal respiratory effort and symmetric chest movement *Routine Cardiovascular Exam Cardiovascular: Present RRR, Normal S1 and Normal S2; Absent murmur or gallop *Routine Abdominal Exam Abdominal: Present soft and normoactive bowel sounds; Absent tenderness, distended or organomegaly *Routine Extremities Exam Extremities: Present edema (3+BLE), full ROM, pulses intact and normal capillary refill; Absent cyanosis or clubbing *Routine Skin Exam Skin: Present intact and warm; Absent erythema *Routine Neurological Exam Neurological: Present alert, oriented X3 and CN II-XII intact; Absent sensory deficit or motor deficit Routine Psychiatric Exam Psychiatric: Present normal affect Progress Note: A&P Assessment and plan (1) (HFpEF) heart failure with preserved ejection fraction: Status: Acute (2) COPD (chronic obstructive pulmonary disease): Status: Acute (3) Diabetes mellitus, type 2: Status: Chronic (4) Hyperlipidemia: Status: Acute (5) Hypertension: Status: Acute (6) Pulmonary hypertension: Status: Chronic (7) Morbid obesity: Status: Chronic (8) CKD (chronic kidney disease): Status: Acute (9) Stenosis of carotid artery: Status: Acute (10) CAD in [place] artery: Status: Acute Assessment and Plan Assessment and Plan for All Diagnoses:: Plan: 1. The patient was admitted to the hospital for an exacerbation of HFpEF. The patient will need aggressive diuresis with diuretics. Will continue Bumex 2 mg IV twice daily for continued diuresis. He did have a -2300 fluid balance overn ight. The patient likely has several more liters of fluid to get off of him before he is ready for discharge home. 2. His blood pressure has been running a little bit high. Will add Imdur 60 mg p.o. daily for better blood pressure control. Continue diltiazem. 3. No DIEGO or ARB at this time or Entresto due to his renal function. 4. No Farxiga or Jardiance due to his renal function. 5. Continue propranolol and hydralazine for his HFpEF. 6. His LDL goal is less than 55. He is on a statin. His LDL is 43. 7. Coronary artery disease is present. This is mild and nonocclusive. No plans for invasive left cardiac catheterization at this time. 8. The patient does have chronic kidney disease. His creatinine is stable at 2.1. Will continue to follow this closely. 9. Further recommendations will be made pending the patient's response to treatment. Thank you for the opportunity to help participate in the care of this patient. All recommendations and orders are per Dr. Adams.
--- NOTE | 2023-06-13 16:52 | PC.NURSE ---
PT IS RESTING IN BED. ALERT AND ORIENTED X4. EATING AND DRINKING WELL. LUNG SOUNDS DIMINISHED WITH SCATTERED WHEEZES. ABDOMEN SOFT/LARGE NON TENDER WITH ACTIVE BOWEL SOUNDS. PT HAD A LARGE BOWEL MOVEMENT THIS SHIFT. SWELLING/REDNESS NOTED TO BLE. REDNESS NOTED TO SCROTUM AND BUTTOCKS. BATH AND LINEN CHANGE THIS SHIFT. WILL CONTINUE TO MONITOR.
[2023-06-13] MEDS: MONTELUKAST SODIUM 10MG TAB 10 MG PO (17:08)
--- NOTE | 2023-06-13 18:22 | EXP.ACUTE.PN ---
Subjective *Date: 06/13/23 *Time: 18:38 Interval history: Patient is having a cough today. Stable on 4 L. No fever. No nausea or vomiting. Does appear to be breathing a little bit better. Has had improvement in his lower extremity edema. Having significant urine output, -2.3 L this morning. Tolerating p.o. intake. Necessitating significant assistance. Requires a lot of assistance at home as well from family. Is unable to care for self. Medical Exam Vital signs and Labs for Last 24 Hours: Vital Signs Temp Pulse Pulse Resp BP Pulse Ox O2 Del Method 06/13/23 18:16 79 06/13/23 18:16 79 06/13/23 18:16 91 L Nasal Cannula 06/13/23 16:55 Nasal Cannula 06/13/23 16:00 98.2 F 71 20 145/63 H 92 L Nasal Cannula 06/13/23 15:15 50 L 16 106/48 L 95 Nasal Cannula 06/13/23 08:00 Nasal Cannula 06/13/23 15:00 Nasal Cannula 06/13/23 12:42 Nasal Cannula 06/13/23 11:57 97.9 F 68 20 135/67 94 L Nasal Cannula 06/13/23 11:05 69 06/13/23 11:05 65 06/13/23 11:05 96 Nasal Cannula 06/13/23 10:50 Nasal Cannula 06/13/23 09:00 Nasal Cannula 06/13/23 05:56 66 06/13/23 05:56 66 06/13/23 05:56 94 L Nasal Cannula 06/13/23 07:48 97.6 F 65 16 159/67 H 96 Nasal Cannula 06/13/23 06:54 Nasal Cannula 06/13/23 05:00 Nasal Cannula 06/13/23 04:00 97.9 F 65 21 118/66 92 L 06/13/23 03:00 Nasal Cannula 06/13/23 01:00 Nasal Cannula 06/13/23 00:00 98.3 F 68 20 138/65 93 L Nasal Cannula 06/12/23 23:00 Nasal Cannula 06/12/23 23:17 89 06/12/23 23:17 89 06/12/23 21:00 Nasal Cannula 06/12/23 20:00 Nasal Cannula 06/12/23 20:00 98.1 F 73 19 161/77 H 94 L Nasal Cannula O2 Flow Rate 06/13/23 18:16 06/13/23 18:16 06/13/23 18:16 4 06/13/23 16:55 4 06/13/23 16:00 4 06/13/23 15:15 4 06/13/23 08:00 4 06/13/23 15:00 4 06/13/23 12:42 4 06/13/23 11:57 4 06/13/23 11:05 06/13/23 11:05 06/13/23 11:05 4 06/13/23 10:50 4 06/13/23 09:00 4 06/13/23 05:56 06/13/23 05:56 06/13/23 05:56 4 06/13/23 07:48 4 06/13/23 06:54 4 06/13/23 05:00 4 06/13/23 04:00 06/13/23 03:00 4 06/13/23 01:00 4 06/13/23 00:00 06/12/23 23:00 4 06/12/23 23:17 06/12/23 23:17 06/12/23 21:00 4 06/12/23 20:00 4 06/12/23 20:00 Intake and Output 06/13/23 06/13/23 06/13/23 07:59 15:59 23:59 Intake Total 200 / 1286 846 / 1286 240 / 1286 Output Total 350 / 1100 425 / 1100 325 / 1100 Balance -150 / 186 421 / 186 -85 / 186 Intake: Intake, Oral Amount 200 / 1286 846 / 1286 240 / 1286 Output: Output, Urine Amount 350 / 1100 425 / 1100 325 / 1100 Other: Number of Unmeasured Voids 1 0 0 Number of Bowel Movements 1 Weight 136.7 kg Patient Weight 06/13/23 23:59 Weight 136.7 kg Laboratory Results - last 24 hr 06/12/23 19:41: POC Glucose 184 H 06/13/23 07:00: WBC 8.5, RBC 3.71 L, Hgb 10.1 L, Hct 31.4 L, MCV 84.4, MCH 27.2, MCHC 32.2, RDW 17.1, Plt Count 257, MPV 7.8, Neut % (Auto) 73.2, Lymph % (Auto) 16.5, [place] % (Auto) 7.6, Eos % (Auto) 2.4, Baso % (Auto) 0.3, Neut # (Auto) 6.2, Lymph # (Auto) 1.4, [place] # (Auto) 0.7, Eos # (Auto) 0.2, Baso # (Auto) 0.0, Sodium 137, Potassium 3.7, Chloride 94 L, Carbon Dioxide 37 H, Anion Gap 9.7, BUN 55 H, Creatinine 2.10 H, Estimated Creat Clear 58, Estimated GFR 31 L, Est GFR ( Amer) 37 L, Glucose 48 L, Calcium 8.5 06/13/23 07:01: POC Glucose 57 L 06/13/23 11:08: POC Glucose 191 H I & O for Labs for Last 24 Hours: Intake & Output 06/10/23 06/11/23 06/12/23 06/13/23 23:59 23:59 23:59 23:59 Intake Total 1300 / 1300 1286 / 1286 Output Total 3600 / 3600 1100 / 1100 Balance -2300 / -2300 186 / 186 Weight 131.088 kg 136.7 kg Constitutional: Present no acute distress, morbidly obese, chronically ill appearing and cooperative Head: Present atraumatic and normocephalic ENT: Present normal exam Neck: Present normal inspection Respiratory: Present rhonchi, wheezes, crackles (In bases) and normal respiratory effort Cardiac: Present Reg Rate and Rhythm GI: Present soft and normal bowel sounds; Absent distention or tenderness (male): Present normal inspection Extremities: Present normal inspection, full ROM and edema (3+ bilateral lower extremity edema to knees; wrinkling in feet since yesterday) Comment:: Chronic stasis dermatitis Skin: Present intact; Absent erythema Neuro: Present Grossly Intact, alert, awake, oriented x 3 and moves all extremities Assessment and Plan *Assessment and plan (1) Acute on chronic combined systolic (congestive) and diastolic (congestive) heart failure: Status: Acute Category: Medical Code(s): I50.43 - Acute on chronic combined systolic (congestive) and diastolic (congestive) heart failure (2) COPD (chronic obstructive pulmonary disease): Status: Acute Qualifiers: COPD type: unspecified COPD Qualified Code(s): J44.9 - Chronic obstructive pulmonary disease, unspecified Category: Medical Code(s): J44.9 - Chronic obstructive pulmonary disease, unspecified (3) Diabetes mellitus, type 2: Status: Chronic Qualifiers: Diabetes mellitus [employer] insulin use: with [employer] use Diabetes mellitus complication status: without complication Qualified Code(s): E11.9 - Type 2 diabetes mellitus without complications; Z79.4 - alf (current) use of insulin Category: Medical Code(s): E11.9 - Type 2 diabetes mellitus without complications (4) Hyperlipidemia: Status: Acute Qualifiers: Hyperlipidemia type: mixed hyperlipidemia Qualified Code(s): E78.2 - Mixed hyperlipidemia Category: Medical Code(s): E78.5 - Hyperlipidemia, unspecified (5) Hypertension: Status: Acute Qualifiers: Hypertension type: primary hypertension Qualified Code(s): I10 - Essential (primary) hypertension Category: Medical Code(s): I10 - Essential (primary) hypertension (6) Pulmonary hypertension: Status: Chronic Category: Medical Code(s): I27.20 - Pulmonary hypertension, unspecified (7) Morbid obesity: Status: Chronic Category: Medical Code(s): E66.01 - Morbid (severe) obesity due to excess calories (8) CKD (chronic kidney disease): Status: Acute Qualifiers: Chronic kidney disease stage: unspecified stage Qualified Code(s): N18.9 - Chronic kidney disease, unspecified Category: Medical Code(s): N18.9 - Chronic kidney disease, unspecified Plan 78-year-old male with heart failure, COPD, chronic oxygen requirement. Admitted for CHF exacerbation. Having some increased sputum production, initiating antibiotics for COPD exacerbation 2. Responding to diuresis. Continues to require inpatient management. Cardiology consulted and assisting with care. Problems addressed as follows: Acute on chronic combined systolic and diastolic heart failure, NYHA class III heart failure Cardiology consulted, appreciate their recommendations. Recommend continuing diuresis with Bumex 2 mg twice daily -Patient is -2.3 L in the past 24 hours. Tolerating diuresis well. -Close monitoring of kidney function, creatinine 2.1, BUN 55. This is within patient's normal range. - Prior echocardiogram with normal EF with mildly dilated RV and biatrial dilatation with preserved ejection fraction - Continue aspirin 81 mg daily, diltiazem 240 mg daily, isosorbide 60 mg daily, and propranolol 40 mg twice daily. CKD Creatinine 2.1, BUN 55. Within patient's normal range. Monitoring daily with CMP. Repeat ordered for the morning. Electrolytes with potassium 3.7. T2DM Hypoglycemic this morning, decrease glargine to 60 units nightly down from twice daily. Continue sliding scale insulin with mealtime insulin and long-acting insulin. Close monitoring of glucose to prevent hypoglycemia A1c in May 09.3, much better controlled than previous check. Chronic obstructive pulmonary disease with exacerbation Continue supplemental O2 to oxygen saturations greater than 88% Mild wheezing noted, on patient's home 4 L nasal cannula Continue DuoNebs every 6 hours Initiate Levaquin 750 mg every 48 hours for COPD exacerbation and increased sputum production Morbid obesity: Complicates all aspects of care DVT PPx SQH Full Code PT and OT evaluating patient. Working with him daily. Recommend placement. Case management assisting with referral for placement
[2023-06-13] MEDS: INSULIN GLARGINE 100 UNITS/ML 3ML FLEXPEN 60 UNIT SQ (22:21)
[2023-06-14] VITALS (9 sets, daily range): BP systolic 139–166; BP diastolic 61–82; PULSE 53–77; RESP 17–22; TEMP 36.4–36.8; O2SAT 92–96; BMI 40.1
[2023-06-14 00:05] LABS: POC Glucose,Bedside 125 (70-110)
[2023-06-14] MEDS: FLUTICASONE/UMECLIDIN/VILANTER 100/62.5/25MCG INHALER 1 PUFF IH (06:10)
[2023-06-14] MEDS: IPRATROPIUM/ALBUTEROL 3 ML NEB IH ×3 (06:10→18:14)
[2023-06-14] MEDS: LEVOTHYROXINE 50MCG (0.05MG) TAB 50 MCG PO (06:29)
[2023-06-14 06:37] LABS: Basophils % 0.4 % (0.1-2.0); Eosinophils # 0.2 K/mm3 (0.0-0.4); Eosinophils % 2.5 % (0.1-12.0); Hematocrit 32.3 % (42.0-52.0); Hemoglobin 10.4 g/dL (14.1-18.0); Lymphocytes # 1.6 K/mm3 (0.7-4.5); Lymphocytes % 17.4 % (10-50); Mean Corpuscular HGB Conc 32.3 g/dL (31.8-35.4); Mean Corpuscular Hemoglobin 27.5 pg (27.0-31.2); Mean Corpuscular Volume 84.9 fl (80-94); Monocytes # 0.8 K/mm3 (0.1-1.0); Monocytes % 8.3 % (1.7-9.3); Neutrophils # 6.5 K/mm3 (1.8-7.8); Neutrophils % 71.4 % (37.0-80.0); Platelet Count 279 K/mm3 (142-424); White Blood Count 9.1 K/mm3 (4.8-10.8)
[2023-06-14 06:49] LABS: Alanine Aminotransferase 21 U/L (12-78); Albumin Level 3.3 g/dl (3.5-5.0); Alkaline Phosphatase 92 U/L (38-126); Aspartate Amino Transferase 26 U/L (17-59); Bilirubin,Total 0.4 mg/dl (0.2-1.3); Blood Urea Nitrogen 56 mg/dl (9-20); Calcium 8.6 mg/dl (8.4-10.2); Chloride 93 mmol/L (98-107); Creatinine Clearance Estimated 52 mL/min (50-200); Estimated Glomerular Filt Rate 28 ml/min (>60); GFR (African American) 34 ML/MIN (>60); Globulin 3.2 g/dL (1.3-3.2); Glucose 104 mg/dl (74-100); Potassium 3.7 mmoL/L (3.5-5.1); Sodium 137 mmol/L (136-145); Total Protein,Serum 6.5 g/dl (6.3-8.2)
[2023-06-14 06:51] LABS: POC Glucose,Bedside 145 (70-110)
[2023-06-14 06:56] LABS: Anion Gap 10.7 mEq/L (5-15); Carbon Dioxide 37 mmol/L (22.0-30.0)
--- NOTE | 2023-06-14 08:09 | PC.NURSE ---
Pt states he wears 3L O2 NC at home.
--- NOTE | 2023-06-14 08:10 | PC.NURSE ---
Pt O2 titrated from 4L O2 NC to 3L O2 NC
[2023-06-14] MEDS: BUMETANIDE 1MG/4ML VIAL 2 MG IV (08:26)
[2023-06-14] MEDS: ASPIRIN 81MG CHEWABLE TABLET 81 MG PO (08:26)
[2023-06-14] MEDS: HYDRALAZINE HCL 25MG TABLET 50 MG PO ×3 (08:27→20:31)
[2023-06-14] MEDS: DOCUSATE SODIUM 100 MG CAPSULE PO (08:27)
[2023-06-14] MEDS: dilTIAZem ER 120MG CAPSULE 240 MG PO (08:27)
[2023-06-14] MEDS: PROPRANOLOL 20MG TAB 40 MG PO ×2 (08:30→20:47)
[2023-06-14] MEDS: ISOSORBIDE MONO 60MG TAB.ER.24H 60 MG PO (08:30)
[2023-06-14] MEDS: PREGABALIN 25MG CAPSULE 25 MG PO ×3 (08:38→20:31)
[2023-06-14 08:43] LABS: POC Glucose,Bedside 139 (70-110)
[2023-06-14] MEDS: LEVOFLOXACIN/D5W 750 MG/150 ML 750 MG/150 ML PIGGYBACK 100 MG IV (10:30)
[2023-06-14 11:26] LABS: POC Glucose,Bedside 134 (70-110)
--- NOTE | 2023-06-14 11:27 | EXP.ACUTE.PN ---
Subjective *Date: 06/14/23 *Time: 11:27 Medical Exam Vital signs and Labs for Last 24 Hours: Vital Signs Temp Pulse Pulse Resp BP Pulse Ox O2 Del Method 06/14/23 11:00 Nasal Cannula 06/14/23 11:01 70 06/14/23 11:01 70 06/14/23 11:01 96 Nasal Cannula 06/14/23 09:00 Nasal Cannula 06/14/23 08:00 98.0 F 66 20 159/82 H 93 L Nasal Cannula 06/14/23 08:00 Nasal Cannula 06/14/23 06:10 53 L 06/14/23 06:10 58 L 06/14/23 06:10 94 L Nasal Cannula 06/14/23 06:35 Nasal Cannula 06/14/23 05:00 Nasal Cannula 06/14/23 04:00 98.2 F 65 17 149/74 H 94 L Room Air 06/14/23 03:00 Nasal Cannula 06/14/23 01:00 Nasal Cannula 06/14/23 00:00 97.9 F 73 17 140/61 92 L Nasal Cannula 06/13/23 23:08 72 06/13/23 23:08 72 06/13/23 22:31 Nasal Cannula 06/13/23 21:00 Nasal Cannula 06/13/23 20:00 Nasal Cannula 06/13/23 19:57 98.8 F 74 20 155/72 H 93 L Nasal Cannula 06/13/23 18:56 Nasal Cannula 06/13/23 18:16 79 06/13/23 18:16 79 06/13/23 18:16 91 L Nasal Cannula 06/13/23 16:55 Nasal Cannula 06/13/23 16:00 98.2 F 71 20 145/63 H 92 L Nasal Cannula 06/13/23 15:15 50 L 16 106/48 L 95 Nasal Cannula 06/13/23 15:00 Nasal Cannula 06/13/23 12:42 Nasal Cannula 06/13/23 11:57 97.9 F 68 20 135/67 94 L Nasal Cannula O2 Flow Rate 06/14/23 11:00 3 06/14/23 11:01 06/14/23 11:01 06/14/23 11:01 3 06/14/23 09:00 3 06/14/23 08:00 4 06/14/23 08:00 3 06/14/23 06:10 06/14/23 06:10 06/14/23 06:10 4 06/14/23 06:35 06/14/23 05:00 4 06/14/23 04:00 06/14/23 03:00 4 06/14/23 01:00 4 06/14/23 00:00 06/13/23 23:08 06/13/23 23:08 06/13/23 22:31 4 06/13/23 21:00 4 06/13/23 20:00 4 06/13/23 19:57 4 06/13/23 18:56 4 06/13/23 18:16 06/13/23 18:16 06/13/23 18:16 4 06/13/23 16:55 4 06/13/23 16:00 4 06/13/23 15:15 4 06/13/23 15:00 4 06/13/23 12:42 4 06/13/23 11:57 4 Intake and Output 06/13/23 06/14/23 06/14/23 23:59 07:59 15:59 Intake Total 240 / 1286 240 / 240 Output Total 925 / 2100 500 / 1450 950 / 1450 Balance -685 / -814 -500 / -1210 -710 / -1210 Intake: Intake, Oral Amount 240 / 1286 240 / 240 Output: Output, Urine Amount 925 / 2100 500 / 1450 950 / 1450 Other: Number of Unmeasured Voids 1 0 Weight 134.49 kg Patient Weight 06/14/23 23:59 Weight 134.49 kg Laboratory Results - last 24 hr 06/13/23 23:58: POC Glucose 125 H 06/14/23 05:38: WBC 9.1, RBC 3.80 L, Hgb 10.4 L, Hct 32.3 L, MCV 84.9, MCH 27.5, MCHC 32.3, RDW 17.0, Plt Count 279, MPV 8.0, Neut % (Auto) 71.4, Lymph % (Auto) 17.4, [place] % (Auto) 8.3, Eos % (Auto) 2.5, Baso % (Auto) 0.4, Neut # (Auto) 6.5, Lymph # (Auto) 1.6, [place] # (Auto) 0.8, Eos # (Auto) 0.2, Baso # (Auto) 0.0, Sodium 137, Potassium 3.7, Chloride 93 L, Carbon Dioxide 37 H, Anion Gap 10.7, BUN 56 H, Creatinine 2.30 H, Estimated Creat Clear 52, Estimated GFR 28 L, Est GFR ( Amer) 34 L, Glucose 104 H D, Calcium 8.6, Magnesium 2.0, Total Bilirubin 0.4, AST 26 D, ALT 21, Alkaline Phosphatase 92, Total Protein 6.5, Albumin 3.3 L, Globulin 3.2, Albumin/Globulin Ratio 1.0 L 06/14/23 05:46: POC Glucose 145 H 06/14/23 08:29: POC Glucose 139 H 06/14/23 11:13: POC Glucose 134 H I & O for Labs for Last 24 Hours: Intake & Output 06/11/23 06/12/23 06/13/23 06/14/23 23:59 23:59 23:59 23:59 Intake Total 1300 / 1300 1286 / 1286 240 / 240 Output Total 3600 / 3600 1700 / 2100 1450 / 1450 Balance -2300 / -2300 -414 / -814 -1210 / -1210 Weight 131.088 kg 136.7 kg 134.49 kg
[2023-06-14 11:48] LABS: POC Glucose,Bedside 138 (70-110)
[2023-06-14 11:48] LABS: POC Glucose,Bedside 187 (70-110)
--- NOTE | 2023-06-14 11:51 | EXP.CARD.PN ---
Subjective Subjective Date: 06/14/23 Time: 09:00 Principal diagnosis: Shortness of breath, HFpEF Interval history: This is a 78-year-old gentleman who presented to the emergency department complaints of shortness of breath. He was admitted for an acute exacerbation of HFpEF. Patient has diuresed with IV Bumex. The patient has had over 2 L of diuresis. The patient states he has had improvement in his shortness of breath. His lower extremity edema has improved as well. He denies any chest pain. He denies any fever, chills, nausea, vomiting or diarrhea. Exam Data for Last 24 hours Vital signs and Labs for Last 24 Hours: Temp Pulse Resp BP Pulse Ox O2 Del Method O2 Flow Rate 98.0 F 70 20 159/82 H 96 Nasal Cannula 3 06/14/23 08:00 06/14/23 11:01 06/14/23 08:00 06/14/23 08:00 06/14/23 11:01 06/14/23 11:01 06/14/23 11:01 FiO2 90 06/12/23 03:09 Laboratory Results - last 24 hr 06/13/23 15:51: POC Glucose 138 H 06/13/23 20:08: POC Glucose 187 H 06/13/23 23:58: POC Glucose 125 H 06/14/23 05:38: WBC 9.1, RBC 3.80 L, Hgb 10.4 L, Hct 32.3 L, MCV 84.9, MCH 27.5, MCHC 32.3, RDW 17.0, Plt Count 279, MPV 8.0, Neut % (Auto) 71.4, Lymph % (Auto) 17.4, [place] % (Auto) 8.3, Eos % (Auto) 2.5, Baso % (Auto) 0.4, Neut # (Auto) 6.5, Lymph # (Auto) 1.6, [place] # (Auto) 0.8, Eos # (Auto) 0.2, Baso # (Auto) 0.0, Sodium 137, Potassium 3.7, Chloride 93 L, Carbon Dioxide 37 H, Anion Gap 10.7, BUN 56 H, Creatinine 2.30 H, Estimated Creat Clear 52, Estimated GFR 28 L, Est GFR ( Amer) 34 L, Glucose 104 H D, Calcium 8.6, Magnesium 2.0, Total Bilirubin 0.4, AST 26 D, ALT 21, Alkaline Phosphatase 92, Total Protein 6.5, Albumin 3.3 L, Globulin 3.2, Albumin/Globulin Ratio 1.0 L 06/14/23 05:46: POC Glucose 145 H 06/14/23 08:29: POC Glucose 139 H 06/14/23 11:13: POC Glucose 134 H I & O for Last 24 hours: Intake & Output 06/11/23 06/12/23 06/13/23 06/14/23 23:59 23:59 23:59 23:59 Intake Total 1300 / 1300 1286 / 1286 240 / 240 Output Total 3600 / 3600 1700 / 2100 1450 / 1450 Balance -2300 / -2300 -414 / -814 -1210 / -1210 Weight 289 lb 301 lb 5.95 oz 296 lb 8 oz Constitutional Constitutional: no acute distress and obese *Routine HEENT Exam Head: Present normocephalic and atraumatic ENT: Present mucous membranes moist *Routine Neck Exam Neck: Present supple, full ROM and normal carotid upstroke; Absent JVD, carotid bruit or lymphadenopathy *Routine Respiratory Exam Respiratory: Present rales, wheezes, normal respiratory effort and symmetric chest movement *Routine Cardiovascular Exam Cardiovascular: Present RRR, Normal S1 and Normal S2; Absent murmur or gallop *Routine Abdominal Exam Abdominal: Present soft and normoactive bowel sounds; Absent tenderness, distended or organomegaly *Routine Extremities Exam Extremities: Present edema (2+BLE), full ROM, pulses intact and normal capillary refill; Absent cyanosis or clubbing *Routine Skin Exam Skin: Present intact and warm; Absent erythema *Routine Neurological Exam Neurological: Present alert, oriented X3 and CN II-XII intact; Absent sensory deficit or motor deficit Routine Psychiatric Exam Psychiatric: Present normal affect Progress Note: A&P Assessment and plan (1) (HFpEF) heart failure with preserved ejection fraction: Status: Acute (2) COPD (chronic obstructive pulmonary disease): Status: Acute (3) Diabetes mellitus, type 2: Status: Chronic (4) Hyperlipidemia: Status: Acute (5) Hypertension: Status: Acute (6) Pulmonary hypertension: Status: Chronic (7) Morbid obesity: Status: Chronic (8) CKD (chronic kidney disease): Status: Acute (9) Stenosis of carotid artery: Status: Acute (10) CAD in [place] artery: Status: Acute (11) Respiratory failure with hypoxia and hypercapnia: Status: Acute Assessment and Plan Assessment and Plan for All Diagnoses:: Plan: 1. The patient was admitted to the hospital for an exacerbation of HFpEF. The patient has had aggressive diuresis with IV Bumex. The patient has had over 2 L of diuresis. We do recommend sending the patient home on Bumex 2 mg p.o. twice daily for continued diuresis. 2. His blood pressure is improved today. Continue Imdur and diltiazem. 3. No DIEGO, ARB or Entresto due to his renal function. 4. No Farxiga or Jardiance due to his renal function. 5. Continue propranolol and hydralazine for HFpEF. 6. His LDL goal is less than 55. His LDL is 43. He is on a statin. 7. The patient does have mild nonocclusive coronary artery disease. He denies any chest pain or pressure. No plans for invasive left cardiac catheterization at this time. 8. The patient does have chronic kidney disease. His creatinine is 2.3 and stable. 9. The patient would benefit from being in a rehab facility where he can work on his deconditioning and get his medications administered appropriately. We do feel like noncompliance is a huge component in the patient's readmissions for HFpEF. The patient is considering rehab placement at this time. 10. No further recommendations from a cardiac standpoint. The patient can be discharged from a cardiac standpoint when he is medically cleared from the hospitalist. Thank you for the opportunity to participate in the care of this patient. All recommendations and orders are per Dr. Adams.
--- NOTE | 2023-06-14 12:54 | P.DS_ITS ---
General Admission date:: 06/12/23 Discharge date: 06/14/23 HPI HPI HPI: This is a chronically ill 78-year-old male with past medical history of COPD, hypertension, pulmonary hypertension, CKD, HLD, DM, GERD who presents to the emergency department with complaints of shortness of breath. He states that he has had decreasing energy over the last several days with an increase in shortness of breath. He was told by his home health nurse to come to the emergency department yesterday but refused and stated that tonight he became more short of breath so he decided to come in. He denies cough or fever. Reports that he is not urinating as much is normal. Emergency department workup significant for CHF exacerbation with BNP of 2220. Chest x-ray with notable cardiomegaly. Pulmonary edema noted. He currently is on home 4 L nasal cannula. He received IV Lasix in the emergency department and admitted to the hospital service for further evaluation management. Hospital Course Hospital Course Hospital Course: 78-year-old male with heart failure, COPD, chronic oxygen requirement. Admitted for CHF exacerbation. Having some increased sputum production, initiating antibiotics for COPD exacerbation 2. Responding to diuresis. -3 L since admission. Tolerating baseline oxygen requirement of 4 L. Stable for discharge to rehab. Problems addressed as follows: Acute on chronic combined systolic and diastolic heart failure, NYHA class III heart failure CKD Cardiology consulted, assisted with care during admission. Tolerating Bumex 2 mg twice daily. Will continue this at discharge. Diuresing well with negative fluid status. Monitoring kidney function closely. Creatinine and BUN have been within his baseline range between 2 and 2.4 for creatinine and mid 50s for BUN. Recommend repeat labs with CMP, CBC, magnesium in 3 to 5 days to monitor kidney function and electrolytes. Prior echocardiogram with normal EF with mildly dilated RV and biatrial dilatation with preserved ejection fraction. Continue aspirin 81 mg daily, diltiazem 240 mg daily, isosorbide 60 mg daily, hydralazine 3 times daily, and propranolol 40 mg twice daily. See med rec for full details. T2DM Adjustments made to insulin regimen during admission. Continue basal insulin once daily 60 units insulin degludec. A1c in May was 7.3. Needs repeat A1c checked in August. Chronic obstructive pulmonary disease with exacerbation Continue supplemental O2 to oxygen saturations greater than 88%. Stable on 4 L nasal cannula which is his baseline. Continue nebulizers. Was initiated on Levaquin every 48 hours. Will need to repeat antibiotics. Continue Levaquin for total of 5 days. Repeat dose tomorrow on 06/15 and on 06/17 to complete course. This is renally dosed for his kidney dysfunction. Morbid obesity: Complicates all aspects of care Spent 30 minutes in discharge counseling, documentation, chart review, and direct care with patient. Exam Data for Last 24 hours Vital signs and Labs for Last 24 Hours: Temp Pulse Resp BP Pulse Ox O2 Del Method O2 Flow Rate 98.0 F 70 20 159/82 H 96 Nasal Cannula 3 06/14/23 08:00 06/14/23 11:01 06/14/23 08:00 06/14/23 08:00 06/14/23 11:01 06/14/23 11:01 06/14/23 11:01 FiO2 90 06/12/23 03:09 Laboratory Results - last 24 hr 06/13/23 15:51: POC Glucose 138 H 06/13/23 20:08: POC Glucose 187 H 06/13/23 23:58: POC Glucose 125 H 06/14/23 05:38: WBC 9.1, RBC 3.80 L, Hgb 10.4 L, Hct 32.3 L, MCV 84.9, MCH 27.5, MCHC 32.3, RDW 17.0, Plt Count 279, MPV 8.0, Neut % (Auto) 71.4, Lymph % (Auto) 17.4, Josephine % (Auto) 8.3, Eos % (Auto) 2.5, Baso % (Auto) 0.4, Neut # (Auto) 6.5, Lymph # (Auto) 1.6, Josephine # (Auto) 0.8, Eos # (Auto) 0.2, Baso # (Auto) 0.0, Sodium 137, Potassium 3.7, Chloride 93 L, Carbon Dioxide 37 H, Anion Gap 10.7, BUN 56 H, Creatinine 2.30 H, Estimated Creat Clear 52, Estimated GFR 28 L, Est GFR ( Amer) 34 L, Glucose 104 H D, Calcium 8.6, Magnesium 2.0, Total Bilirubin 0.4, AST 26 D, ALT 21, Alkaline Phosphatase 92, Total Protein 6.5, Albumin 3.3 L, Globulin 3.2, Albumin/Globulin Ratio 1.0 L 06/14/23 05:46: POC Glucose 145 H 06/14/23 08:29: POC Glucose 139 H 06/14/23 11:13: POC Glucose 134 H I & O for Last 24 hours: Intake & Output 06/11/23 06/12/23 06/13/23 06/14/23 23:59 23:59 23:59 23:59 Intake Total 1300 / 1300 1286 / 1286 240 / 240 Output Total 3600 / 3600 1700 / 2100 1450 / 1450 Balance -2300 / -2300 -414 / -814 -1210 / -1210 Weight 131.088 kg 136.7 kg 134.49 kg Constitutional Constitutional: no acute distress, morbidly obese and chronically ill appearing *Routine HEENT Exam Head: Present normocephalic and atraumatic ENT: Present mucous membranes moist *Routine Neck Exam Neck: Present supple, full ROM and normal carotid upstroke; Absent JVD, carotid bruit or lymphadenopathy *Routine Respiratory Exam Respiratory: Present crackles (bases), normal respiratory effort and symmetric chest movement; Absent rhonchi or wheezes *Routine Cardiovascular Exam Cardiovascular: Present RRR, Normal S1 and Normal S2; Absent murmur or gallop *Routine Abdominal Exam Abdominal: Present soft and normoactive bowel sounds; Absent tenderness, distended or organomegaly *Routine Extremities Exam Extremities: Present edema (2+ dense woody edema with stasis dermatitis bilateral lower extremities), full ROM, pulses intact and normal capillary refill; Absent cyanosis or clubbing Comments: chronic stasis changes *Routine Skin Exam Skin: Present intact and warm; Absent erythema *Routine Neurological Exam Neurological: Present alert, oriented X3 and CN II-XII intact; Absent sensory deficit or motor deficit Routine Psychiatric Exam Psychiatric: Present normal affect Results Data Completed and Pending Labs on day of discharge: Labs from last 24 hours 06/14/23 06/14/23 06/14/23 11:13 08:29 05:46 WBC RBC Hgb Hct MCV MCH MCHC RDW Plt Count MPV Neut % (Auto) Lymph % (Auto) Josephine % (Auto) Eos % (Auto) Baso % (Auto) Neut # (Auto) Lymph # (Auto) Josephine # (Auto) Eos # (Auto) Baso # (Auto) Sodium Potassium Chloride Carbon Dioxide Anion Gap BUN Creatinine Estimated Creat Clear Estimated GFR Est GFR ( Amer) Glucose POC Glucose 134 H 139 H 145 H Calcium Magnesium Total Bilirubin AST ALT Alkaline Phosphatase Total Protein Albumin Globulin Albumin/Globulin Ratio 06/14/23 06/13/23 06/13/23 05:38 23:58 20:08 WBC 9.1 RBC 3.80 L Hgb 10.4 L Hct 32.3 L MCV 84.9 MCH 27.5 MCHC 32.3 RDW 17.0 Plt Count 279 MPV 8.0 Neut % (Auto) 71.4 Lymph % (Auto) 17.4 Josephine % (Auto) 8.3 Eos % (Auto) 2.5 Baso % (Auto) 0.4 Neut # (Auto) 6.5 Lymph # (Auto) 1.6 Josephine # (Auto) 0.8 Eos # (Auto) 0.2 Baso # (Auto) 0.0 Sodium 137 Potassium 3.7 Chloride 93 L Carbon Dioxide 37 H Anion Gap 10.7 BUN 56 H Creatinine 2.30 H Estimated Creat Clear 52 Estimated GFR 28 L Est GFR ( Amer) 34 L Glucose 104 H D POC Glucose 125 H 187 H Calcium 8.6 Magnesium 2.0 Total Bilirubin 0.4 AST 26 D ALT 21 Alkaline Phosphatase 92 Total Protein 6.5 Albumin 3.3 L Globulin 3.2 Albumin/Globulin Ratio 1.0 L 06/13/23 15:51 WBC RBC Hgb Hct MCV MCH MCHC RDW Plt Count MPV Neut % (Auto) Lymph % (Auto) Josephine % (Auto) Eos % (Auto) Baso % (Auto) Neut # (Auto) Lymph # (Auto) Josephine # (Auto) Eos # (Auto) Baso # (Auto) Sodium Potassium Chloride Carbon Dioxide Anion Gap BUN Creatinine Estimated Creat Clear Estimated GFR Est GFR ( Amer) Glucose POC Glucose 138 H Calcium Magnesium Total Bilirubin AST ALT Alkaline Phosphatase Total Protein Albumin Globulin Albumin/Globulin Ratio DS: Diagnosis Discharge Diagnosis (1) (HFpEF) heart failure with preserved ejection fraction: Status: Acute Code(s): I50.30 - Unspecified diastolic (congestive) heart failure Qualifiers: Heart failure chronicity: acute on chronic Qualified Code(s): I50.33 - Acute on chronic diastolic (congestive) heart failure (2) COPD (chronic obstructive pulmonary disease): Status: Acute Code(s): J44.9 - Chronic obstructive pulmonary disease, unspecified Qualifiers: COPD type: unspecified COPD Qualified Code(s): J44.9 - Chronic obstructive pulmonary disease, unspecified (3) Diabetes mellitus, type 2: Status: Chronic Code(s): E11.9 - Type 2 diabetes mellitus without complications Qualifiers: Diabetes mellitus shelter insulin use: with superintendent container terminal use Diabetes mellitus complication status: without complication Qualified Code(s): E11.9 - Type 2 diabetes mellitus without complications; Z79.4 - half-way (current) use of insulin (4) Hyperlipidemia: Status: Acute Code(s): E78.5 - Hyperlipidemia, unspecified Qualifiers: Hyperlipidemia type: mixed hyperlipidemia Qualified Code(s): E78.2 - Mixed hyperlipidemia (5) Hypertension: Status: Acute Code(s): I10 - Essential (primary) hypertension Qualifiers: Hypertension type: primary hypertension Qualified Code(s): I10 - Essential (primary) hypertension (6) Pulmonary hypertension: Status: Chronic Code(s): I27.20 - Pulmonary hypertension, unspecified (7) Morbid obesity: Status: Chronic Code(s): E66.01 - Morbid (severe) obesity due to excess calories (8) CKD (chronic kidney disease): Status: Acute Code(s): N18.9 - Chronic kidney disease, unspecified Qualifiers: Chronic kidney disease stage: unspecified stage Qualified Code(s): N18.9 - Chronic kidney disease, unspecified (9) Stenosis of carotid artery: Status: Acute Code(s): I65.29 - Occlusion and stenosis of unspecified carotid artery Qualifiers: Laterality: bilateral Qualified Code(s): I65.23 - Occlusion and stenosis of bilateral carotid arteries (10) CAD in [place] artery: Status: Acute Code(s): I25.10 - Atherosclerotic heart disease of [place] coronary artery without angina pectoris (11) Respiratory failure with hypoxia and hypercapnia: Status: Acute Code(s): J96.91 - Respiratory failure, unspecified with hypoxia; J96.92 - Respiratory failure, unspecified with hypercapnia Qualifiers: Chronicity: acute on chronic Qualified Code(s): J96.21 - Acute and c hronic respiratory failure with hypoxia; J96.22 - Acute and chronic respiratory failure with hypercapnia Meds Home Medications and Allergies Home Medications Medication Instructions Recorded Confirmed Type ergocalciferol (vitamin D2) 1,250 50,000 unit PO WEEKLY 10/07/20 06/12/23 History mcg (50,000 unit) capsule omeprazole 20 mg capsule,delayed 20 mg PO DAILY 10/07/20 06/12/23 History release aspirin 81 mg chewable tablet 81 mg PO DAILY 01/04/22 06/12/23 History montelukast 10 mg tablet 10 mg PO HS 01/04/22 06/12/23 History potassium chloride 10 mEq 10 meq PO DAILY 01/04/22 06/12/23 History tablet,extended release fluticasone fur. 100 mcg-umeclid 1 inh inhalation AM 04/05/23 06/12/23 History 62.5 mcg-vilant 25 mcg inhalat.powder (Trelegy Ellipta) hydralazine 50 mg tablet 50 mg PO TID 04/05/23 06/12/23 History levothyroxine 50 mcg tablet 50 mcg PO AM 04/05/23 06/12/23 History propranolol 80 mg capsule,24 80 mg PO DAILY 04/05/23 06/12/23 History hr,extended release diltiazem HCl 240 mg capsule,24 240 mg PO DAILY 30 days #30 caps 04/10/23 06/12/23 Rx hr,extended release semaglutide 0.25 mg or 0.5 mg (2 0.25 mg (0.368 mL) SQ WEEKLY #3 mL 04/17/23 06/12/23 Rx mg/3 mL) subcutaneous pen injector (Ozempic) albuterol sulfate 2.5 mg/3 mL 2.5 mg inhalation Q4HP PRN Wheezing 05/14/23 06/12/23 History (0.083 %) solution for nebulization albuterol sulfate 90 mcg/actuation 2 puff inhalation Q6HP PRN Wheezing 05/14/23 06/12/23 History aerosol inhaler (Proventil HFA) allopurinol 100 mg tablet 100 mg PO DAILY 06/12/23 06/12/23 History atorvastatin 40 mg tablet 40 mg PO HS 06/12/23 06/12/23 History guaifenesin 600 mg tablet, 600 mg PO BID 06/12/23 06/12/23 History extended release 12 hr bumetanide 2 mg tablet 2 mg PO BIDL 30 days #60 tabs 06/14/23 06/12/23 Rx insulin aspart U-100 100 unit/mL 10 unit (0.1 mL) SQ TIDWMEAL 30 06/14/23 06/12/23 Rx (3 mL) subcutaneous pen days #0 mL insulin degludec 200 unit/mL (3 60 unit (0.3 mL) SQ HS 30 days #0 06/14/23 06/12/23 Rx mL) subcutaneous pen (Tresiba mL FlexTouch U-200 insulin) isosorbide mononitrate 60 mg 60 mg PO DAILY 30 days #0 tabs 06/14/23 Rx tablet,extended release 24 hr levofloxacin 750 mg tablet 750 mg PO 1100 3 days #3 tabs 06/14/23 Rx pregabalin 25 mg capsule 25 mg PO TID 30 days #90 caps 06/14/23 Rx New Prescriptions to Start Prescriptions: Juan Fisher pregabalin Juan Goldman Allergies Allergy/AdvReac Type Severity Reaction Status Date / Time latex [LATEX] Allergy Unknown Unknown Verified 04/17/23 14:20 allergy reaction Iodinated Contrast Media Allergy Unknown Verified 04/17/23 14:20 allergy reaction Discharge Plan Disposition Patient Disposition: Xfer SNF Condition: Good Discharge Order Discharge Orders: Discharge Order (Routine); Ordered 06/14/23 Ordered By: Juan Goldman Follow up Plan Follow up with: Jared Pickens MD [Staff Physician] - 06/27/23 3:00 pm Prescriptions/Medication Reconciliation: New isosorbide mononitrate 60 mg Tablet Extended Release 24 Hr 60 mg PO DAILY 30 Days Qty: 0 0RF levofloxacin 750 mg Tablet 750 mg PO 1100 3 Days Qty: 3 0RF Continued Ozempic 0.25 mg or 0.5 mg (2 mg/3 mL) pen injector 0.25 mg SQ WEEKLY Qty: 3 2RF Rx Instructions: Administer on Sundays omeprazole 20 MG capsule,delayed release(DR/EC) 20 mg PO DAILY ergocalciferol (vitamin D2) 50,000 UNIT capsule 50,000 unit PO WEEKLY Patient Comments: TAKE 1 CAPSULE BY MOUTH ONE TIME PER WEEK levothyroxine 50 mcg tablet 50 mcg PO AM Trelegy Ellipta 100-62.5-25 mcg blister with device 1 inh INHALATION AM propranolol 80 mg capsule,extended release 24 hr 80 mg PO DAILY hydralazine 50 mg tablet 50 mg PO TID diltiazem HCl 240 mg capsule,extended release 24 hr 240 mg PO DAILY 30 Days Qty: 30 0RF albuterol sulfate 2.5 mg /3 mL (0.083 %) solution for nebulization 2.5 mg inhalation Q4HP PRN (Reason: Wheezing) Patient Comments: INHALE CONTENTS OF 1 VIAL (3 MLS) PER NEBULIZER EVERY 4 HOURS NEEDED FOR WHEEZING albuterol sulfate [Proventil HFA] 90 mcg/actuation Hfa Aerosol Inhaler 2 puff INHALATION Q6HP PRN (Reason: Wheezing) atorvastatin 40 mg Tablet 40 mg PO HS allopurinol 100 mg Tablet 100 mg PO DAILY guaifenesin 600 mg Tablet Extended Release 12hr 600 mg PO BID pregabalin 25 MG capsule 25 mg PO TID 30 Days Qty: 90 0RF potassium chloride 10 MEQ tablet extended release 10 meq PO DAILY aspirin 81 MG tablet,chewable 81 mg PO DAILY montelukast 10 MG tablet 10 mg PO HS Changed bumetanide 2 mg tablet 2 mg PO BIDL 30 Days Qty: 60 0RF insulin aspart U-100 100 UNIT/ML insulin pen 10 unit SQ TIDWMEAL 30 Days Qty: 0 0RF Patient Comments: SUBCUTANEOUS (INJECT UNDER THE SKIN) 10 UNITS 3 TIMES DAILY (BEFORE MEALS). Rx Instructions: Administer prior to meals. insulin degludec [Tresiba FlexTouch U-200] 200 unit/mL (3 mL) insulin pen 60 unit SQ HS 30 Days Qty: 0 0RF Problem Reconciliation Problems Reviewed?: Yes Patient Discharge Instructions ACTIVITY: Continue current activity DIET: continue same diet Patient Instructions: DI for Heart Failure Providers Primary Care Provider: Provider,Referral Admit Provider: Juan Goldman Attending Provider: Juan Goldman
--- NOTE | 2023-06-14 14:25 | PC.NURSE ---
Report called to [facility].
--- NOTE | 2023-06-14 17:15 | PC.NURSE ---
[facility] at [facility] updated on pt status. Awaiting transport to facility by EMS.
[2023-06-14] MEDS: humaLOG 100 UNITS/ML 3ML VIAL (SSI) SQ (17:44)
[2023-06-14] MEDS: MONTELUKAST SODIUM 10MG TAB 10 MG PO (17:45)
--- NOTE | 2023-06-14 22:44 | PC.NURSE ---
PT LEFT FLOOR WITH EMS AT THIS TIME
[2023-06-15 02:36] LABS: POC Glucose,Bedside 179 (70-110)
== END 2023-06-14 22:44 ==
LOC: ER 04:52 → ICU 05:18 → 2ND 06-13 20:53
PROVIDERS: Nurse Practitioner Acute Care; Admitting Provider Internal Medicine Adolescent Medicine; Emergency Provider Emergency Medicine; Visit Provider Internal Medicine Adolescent Medicine
DX: I13.10 Hypertensive heart and chronic kidney disease without heart failure, with stage 1 through stage 4 chronic kidney disease, or unspecified chronic kidney disease (principal); I50.43 Acute on chronic combined systolic (congestive) and diastolic (congestive) heart failure; J44.9 Chronic obstructive pulmonary disease, unspecified; E78.2 Mixed hyperlipidemia; I27.20 Pulmonary hypertension, unspecified; E11.22 Type 2 diabetes mellitus with diabetic chronic kidney disease; E66.01 Morbid (severe) obesity due to excess calories; N18.9 Chronic kidney disease, unspecified; Z79.4 Long term (current) use of insulin; I50.33 Acute on chronic diastolic (congestive) heart failure; I65.23 Occlusion and stenosis of bilateral carotid arteries; I25.10 Atherosclerotic heart disease of native coronary artery without angina pectoris; J96.21 Acute and chronic respiratory failure with hypoxia; J96.22 Acute and chronic respiratory failure with hypercapnia; R91.1 Solitary pulmonary nodule; Z68.41 Body mass index [BMI] 40.0-44.9, adult; Z91.199 Patient's noncompliance with other medical treatment and regimen due to unspecified reason
CPT/HCPCS: 36410; 36415; 71045; 80048; 80053; 81001; 82803; 82962; 83735; 83880; 84484; 85025; 87632; 87635; 87636; 93005; 94640; 97110; 97116; 97163; 97165; 97530; 99285; G0378; J1956